=== PATIENT | female | born 1975 | race Caucasian/White ===

== ENCOUNTER 2016-10-06 18:50 | Emergency (ER) | payer OTHER ==
[~2016-10-06 18:50] MED LIST: B-1250TA3 PO; CHRO1000 PO; CINN500T PO; COMBAER6 INH; DHEA50CA4 PO; INSUH10VL SC; LAMI1TAB7 PO; LANTINJ4 SC; LISI-542 PO; LORA1TAB12 PO; Librium PO; MENSTAB PO; MOBI15TA PO; NEUR100C PO; NEUR600T PO; PRAV20TA2 PO; PRIL20CA9 PO; PROZ10CA7 PO; ZYRT10CA PO; [UNRECOGNIZED DRUG - CODE] PO
[2016-10-06] MEDS ORDERED: ACETAMINOPHEN 325 MG TAB As Ordered ONE (21:10)
[2016-10-06 21:26] LABS: BASO % 0.5 % (0.0-1.0); EOS # 0.1 K/mm3 (0.0-0.50); EOS % 1.2 % (0.0-3.0); LARGE UNSTAINED CELL # 0.1 K/mm3 (0.0-0.4); LARGE UNSTAINED CELL % 1.5 % (0.0-4.0); LYMPH # 2.6 K/mm3 (1.5-4.5); LYMPH % 29.1 % (24.0-44.0); MEAN CORPUSCULAR HGB CONC 31.8 g/dl (32.0-36.5); MEAN CORPUSCULAR VOLUME 78.6 fl (80.0-96.0); MONO # 0.4 K/mm3 (0.0-0.8); MONO % 4.2 % (0.0-5.0); NEUTROPHILS # 5.6 K/mm3 (1.8-7.7); NEUTROPHILS % 63.5 % (36.0-66.0); PLATELET COUNT, AUTOMATED 437 k/mm3 (150-450); WHITE BLOOD COUNT 8.8 K/mm3 (4.0-10.0)
[2016-10-06 21:47] LABS: ALBUMIN 3.9 GM/DL (3.2-5.2); ALBUMIN/GLOBULIN RATIO 0.98 (1.00-1.93); ALKALINE PHOSPHATASE 145 U/L (45-117); ALT/SGPT 21 U/L (12-78); AMYLASE 39 U/L (25-115); ANION GAP 7 MEQ/L (8-16); AST/SGOT 5 U/L (15-37); BILIRUBIN,DIRECT < 0.1 MG/DL (0.0-0.2); BILIRUBIN,TOTAL 0.2 MG/DL (0.2-1.0); BLOOD UREA NITROGEN 15 MG/DL (7-18); CALCIUM LEVEL 9.3 MG/DL (8.5-10.1); CARBON DIOXIDE LEVEL 26 MEQ/L (21-32); CHLORIDE LEVEL 104 MEQ/L (98-107); CREATININE FOR GFR 1.09 MG/DL (0.55-1.02); GLOMERULAR FILTRATION RATE 59.5 (>60); POTASSIUM SERUM 4.1 MEQ/L (3.5-5.1); SODIUM LEVEL 137 MEQ/L (136-145); TOTAL PROTEIN 7.9 GM/DL (6.4-8.2)
[2016-10-06 22:04] LABS: GLUCOSE, FASTING 422 MG/DL (70-105)
[2016-10-06] MEDS ORDERED: ISOVUE-370 76% 100ML VIAL (Q9967) As Ordered ONE (22:26)
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
== END 2016-10-06 23:48 | disposition home or self-care (01) ==
LOC: M ED 18:50
DX: S20.211A Contusion of right front wall of thorax, initial encounter (principal); S20.212A Contusion of left front wall of thorax, initial encounter; V43.52XA Car driver injured in collision with other type car in traffic accident, initial encounter; Y92.410 Unspecified street and highway as the place of occurrence of the external cause; Y93.89 Activity, other specified; Y99.8 Other external cause status; E10.65 Type 1 diabetes mellitus with hyperglycemia; I10 Essential (primary) hypertension; J45.909 Unspecified asthma, uncomplicated; F31.9 Bipolar disorder, unspecified; F84.5 Asperger's syndrome; M19.90 Unspecified osteoarthritis, unspecified site; Z79.899 Other long term (current) drug therapy; Z88.2 Allergy status to sulfonamides; Z88.6 Allergy status to analgesic agent; Z91.040 Latex allergy status; Z91.018 Allergy to other foods; F17.210 Nicotine dependence, cigarettes, uncomplicated
CPT/HCPCS: 36415; 70450; 71020; 72110; 72125; 74177; 80048; 80076; 82150; 83690; 85025; 99284; Q9967

== ENCOUNTER 2016-10-21 01:05 | Emergency (ER) | payer OTHER ==
[2016-10-21] MEDS ORDERED: diazePAM 5 MG TAB As Ordered ONE (01:32)
--- NOTE | 2016-10-21 01:56 | EDDOCDS ---
Physician Documentation [facility] Name: Geeta Tate Age: 41 yrs Sex: Female : 1975 Arrival Date: 10/21/2016 Time: 01:05 Bed I2 / M2 Private MD: Disposition: 10/21/16 01:34 Discharged to Home/Self Care. Impression: Muscle spasm of back - UPPER. - Condition is Stable. - Discharge Instructions: Muscle Cramps and Spasms. - Prescriptions for Valium 5 mg Oral Tablet - take 1 tablet by ORAL route every 8 hours As needed MDD: 3 tabs; 15 tablet. - Medication Reconciliation, Local Pharmacy Hours form. - Follow up: Emergency Department; When: As needed; Reason: Worsening of conditions. [facility]: [facility]; When: Call to arrange an appointment; Reason: Recheck today's complaints, Continuance of care, To establish care. - Problem is new. - Symptoms are unchanged. Historical: - Allergies: Aspirin (Rash); Erythromycin (Rash); Latex (Anaphylaxis); [place]; - Home Meds: 1. atorvastatin 20 mg oral tab 1 tab once daily 2. Cymbalta 90 mg Oral once daily 3. Lamictal 225 Oral 1 tab once daily 4. lisinopril 10 mg Oral tab 1 tab once daily 5. montelukast 10 mg oral tab 1 tab once daily 6. Novolog 100 unit/mL Sub-Q soln 20 unit three times a day 7. Topamax 100 mg Oral tab daily 8. Toujeo SoloStar 300 unit/mL (1.5 mL) subcutaneous inpn 65 unit - PMHx: Arthritis; asperbergs; Aspergers; Asthma; Bipolar disorder; Diabetes - IDDM: controlled; Hypertension; - PSHx: Appendectomy; Oophorectomy- Right; wisdom teeth extraction; - Social history: Smoking status: Patient states former smoker of tobacco. No barriers to communication noted, The patient speaks fluent [place], Speaks appropriately for age. - Family history: Not pertinent. - : The pt / caregiver states he / she is not on anticoagulants. Home medication list is obtained from [employer] import data. - Exposure Risk Screening:: None identified. TAX SPECIALIST: 10/21 01:15 LMP 08/01/2016 cz Vital Signs: 01:15 BP 142 / 72; Pulse 107; Resp 16; Temp 97.9; Pulse Ox 97% on R/A; Weight 93.44 kg / 206 cz lbs; Height 5 ft. 6 in. (167.64 cm); 01:15 Body Mass Index 33.25 (93.44 kg, 167.64 cm) cz MDM: 01:29 Diazepam 5 mg PO once; PLEASE GIVE TO PT TO TAKE HOME, THANK YOU. ordered. dt4 Administered Medications: 01:51 Drug: Diazepam 5 mg [diazepam 5 mg tablet (1 tabs)] Route: PO; ld5 01:51 Follow up: Response: Med's dispensed home ld5 Signatures: Pranay Morgan RN RN cz Humera Gomes RN RN ld5 Marilee Rodriguez PA-C PA-C dt4 MTDD
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
--- NOTE | 2016-10-23 02:56 | EDDOCDS ---
Physician Documentation [facility] Name: Geeta Tate Age: 41 yrs Sex: Female : 1975 Arrival Date: 10/21/2016 Time: 01:05 Bed I2 / M2 Private MD: Disposition: 10/21/16 01:34 Discharged to Home/Self Care. Impression: Muscle spasm of back - UPPER. - Condition is Stable. - Discharge Instructions: Muscle Cramps and Spasms. - Prescriptions for Valium 5 mg Oral Tablet - take 1 tablet by ORAL route every 8 hours As needed MDD: 3 tabs; 15 tablet. - Medication Reconciliation, Local Pharmacy Hours form. - Follow up: Emergency Department; When: As needed; Reason: Worsening of conditions. Follow up: [facility]; When: Call to arrange an appointment; Reason: Recheck today's complaints, Continuance of care, To establish care. - Problem is new. - Symptoms are unchanged. Historical: - Allergies: Aspirin (Rash); Erythromycin (Rash); Latex (Anaphylaxis); [place]; - Home Meds: 1. atorvastatin 20 mg oral tab 1 tab once daily 2. Cymbalta 90 mg Oral once daily 3. Lamictal 225 Oral 1 tab once daily 4. lisinopril 10 mg Oral tab 1 tab once daily 5. montelukast 10 mg oral tab 1 tab once daily 6. Novolog 100 unit/mL Sub-Q soln 20 unit three times a day 7. Topamax 100 mg Oral tab daily 8. Toujeo SoloStar 300 unit/mL (1.5 mL) subcutaneous inpn 65 unit - PMHx: Arthritis; asperbergs; Aspergers; Asthma; Bipolar disorder; Diabetes - IDDM: controlled; Hypertension; - PSHx: Appendectomy; Oophorectomy- Right; wisdom teeth extraction; - Social history: Smoking status: Patient states former smoker of tobacco. No barriers to communication noted, The patient speaks fluent Bulgarian, Speaks appropriately for age. - Family history: Not pertinent. - : The pt / caregiver states he / she is not on anticoagulants. Home medication list is obtained from [employer] import data. - Exposure Risk Screening:: None identified. 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 6 in. (167.64 cm); 01:15 Body Mass Index 33.25 (93.44 kg, 167.64 cm) cz MDM: 01:29 Diazepam 5 mg PO once; PLEASE GIVE TO PT TO TAKE HOME, THANK YOU. ordered. dt4 03:49 Financial registration complete. [facility] 15:58 T-Sheet-- Draft Copy was scanned into [employer] and attached to record. klr Administered Medications: 01:51 Drug: Diazepam 5 mg [diazepam 5 mg tablet (1 tabs)] Route: PO; ld5 01:51 Follow up: Response: Med's dispensed home ld5 Signatures: Pranay Morgan, RN RN cz Humera Goems RN RN ld5 Marilee Rodriguez, ROMARIO DOSS dt4 Sana Og [facility] Niki Ball The chart was reviewed and I authenticate all verbal orders and agree with the evaluation and treatment provided.Attachments: 15:58 T-Sheet-- Draft Copy klr Chart Complete MTDD
--- NOTE | 2016-10-23 02:56 | EDDOCDS ---
Physician Documentation [facility] Name: Geeta Tate Age: 41 yrs Sex: Female : 1975 Arrival Date: 10/21/2016 Time: 01:05 Bed I2 / M2 Private MD: Disposition: 10/21/16 01:34 Discharged to Home/Self Care. Impression: Muscle spasm of back - UPPER. - Condition is Stable. - Discharge Instructions: Muscle Cramps and Spasms. - Prescriptions for Valium 5 mg Oral Tablet - take 1 tablet by ORAL route every 8 hours As needed MDD: 3 tabs; 15 tablet. - Medication Reconciliation, Local Pharmacy Hours form. - Follow up: Emergency Department; When: As needed; Reason: Worsening of conditions. Follow up: [facility]; When: Call to arrange an appointment; Reason: Recheck today's complaints, Continuance of care, To establish care. - Problem is new. - Symptoms are unchanged. Historical: - Allergies: Aspirin (Rash); Erythromycin (Rash); Latex (Anaphylaxis); [place]; - Home Meds: 1. atorvastatin 20 mg oral tab 1 tab once daily 2. Cymbalta 90 mg Oral once daily 3. Lamictal 225 Oral 1 tab once daily 4. lisinopril 10 mg Oral tab 1 tab once daily 5. montelukast 10 mg oral tab 1 tab once daily 6. Novolog 100 unit/mL Sub-Q soln 20 unit three times a day 7. Topamax 100 mg Oral tab daily 8. Toujeo SoloStar 300 unit/mL (1.5 mL) subcutaneous inpn 65 unit - PMHx: Arthritis; asperbergs; Aspergers; Asthma; Bipolar disorder; Diabetes - IDDM: controlled; Hypertension; - PSHx: Appendectomy; Oophorectomy- Right; wisdom teeth extraction; - Social history: Smoking status: Patient states former smoker of tobacco. No barriers to communication noted, The patient speaks fluent [place]ian, Speaks appropriately for age. - Family history: Not pertinent. - : The pt / caregiver states he / she is not on anticoagulants. Home medication list is obtained from [employer] import data. - Exposure Risk Screening:: None identified. 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 6 in. (167.64 cm); 01:15 Body Mass Index 33.25 (93.44 kg, 167.64 cm) cz MDM: 01:29 Diazepam 5 mg PO once; PLEASE GIVE TO PT TO TAKE HOME, THANK YOU. ordered. dt4 03:49 Financial registration complete. [facility] 15:58 T-Sheet-- Draft Copy was scanned into [employer] and attached to record. klr Administered Medications: 01:51 Drug: Diazepam 5 mg [diazepam 5 mg tablet (1 tabs)] Route: PO; ld5 01:51 Follow up: Response: Med's dispensed home ld5 Signatures: Pranay Morgan, RN RN cz Humera Gomes RN RN ld5 Marilee Rodriguez, ROMARIO DOSS dt4 Sana Og [facility] Niki Ball The chart was reviewed and I authenticate all verbal orders and agree with the evaluation and treatment provided.Attachments: 15:58 T-Sheet-- Draft Copy klr Chart Complete MTDD
== END 2016-10-21 01:55 | disposition home or self-care (01) ==
LOC: M ED 01:05
DX: M62.838 Other muscle spasm (principal); V43.52XD Car driver injured in collision with other type car in traffic accident, subsequent encounter; Y92.410 Unspecified street and highway as the place of occurrence of the external cause; Y93.89 Activity, other specified; Y99.8 Other external cause status; M19.90 Unspecified osteoarthritis, unspecified site; J45.909 Unspecified asthma, uncomplicated; F31.9 Bipolar disorder, unspecified; E11.9 Type 2 diabetes mellitus without complications; I10 Essential (primary) hypertension; F84.5 Asperger's syndrome; Z90.79 Acquired absence of other genital organ(s); Z90.89 Acquired absence of other organs; Z87.891 Personal history of nicotine dependence; Z79.4 Long term (current) use of insulin; Z79.899 Other long term (current) drug therapy; Z88.1 Allergy status to other antibiotic agents; Z88.6 Allergy status to analgesic agent; Z91.040 Latex allergy status; Z91.018 Allergy to other foods

== ENCOUNTER → 2016-11-14 | Outpatient (REF) | payer OTHER ==
[2016-11-14 18:25] LABS: BASO % 0.5 % (0.0-1.0); EOS # 0.1 K/mm3 (0.0-0.50); EOS % 1.5 % (0.0-3.0); LARGE UNSTAINED CELL # 0.1 K/mm3 (0.0-0.4); LARGE UNSTAINED CELL % 0.7 % (0.0-4.0); LYMPH # 2.3 K/mm3 (1.5-4.5); MEAN CORPUSCULAR HEMOGLOBIN 25.8 pg (27.0-33.0); MEAN CORPUSCULAR VOLUME 80.7 fl (80.0-96.0); MONO # 0.4 K/mm3 (0.0-0.8); MONO % 4.6 % (0.0-5.0); NEUTROPHILS # 5.1 K/mm3 (1.8-7.7); NEUTROPHILS % 64.8 % (36.0-66.0); PLATELET COUNT, AUTOMATED 382 k/mm3 (150-450); RED CELL DISTRIBUTION WIDTH 13.4 % (11.5-14.5); WHITE BLOOD COUNT 7.9 K/mm3 (4.0-10.0)
[2016-11-14 19:09] LABS: ERYTHROCYTE SEDIMENTATION RATE 27 mm/hr (0-20)
[2016-11-14 19:29] LABS: ALBUMIN 3.7 GM/DL (3.2-5.2); ALKALINE PHOSPHATASE 95 U/L (45-117); ALT/SGPT 19 U/L (12-78); ANION GAP 10 MEQ/L (8-16); AST/SGOT 9 U/L (15-37); BILIRUBIN,TOTAL 0.5 MG/DL (0.2-1.0); BLOOD UREA NITROGEN 13 MG/DL (7-18); CALCIUM LEVEL 8.7 MG/DL (8.5-10.1); CARBON DIOXIDE LEVEL 25 MEQ/L (21-32); CHLORIDE LEVEL 102 MEQ/L (98-107); CREATININE FOR GFR 0.91 MG/DL (0.55-1.02); GLOMERULAR FILTRATION RATE > 60.0 (>60); GLUCOSE, FASTING 322 MG/DL (70-105); POTASSIUM SERUM 4.1 MEQ/L (3.5-5.1); SODIUM LEVEL 137 MEQ/L (136-145); TOTAL PROTEIN 7.4 GM/DL (6.4-8.2)
== END ==
LOC: M LABNEURO 16:33
PROVIDERS: ATTEND Psychiatry & Neurology Neurology
DX: R51 Headache (principal)

== ENCOUNTER 2017-01-15 21:02 | Emergency (ER) | payer OTHER ==
[~2017-01-15] VITALS: Ht 167.6 cm; Wt 93.4 kg
[~2017-01-15 21:02] MED LIST changes: -ATOR1TAB21; -DULO1CAP3; -INSUR SC; -MONT10TA2; -TOPI1TAB31; -TOUJ1.2I
[2017-01-15] MEDS ORDERED: TOPI1TAB31 (21:12)
[2017-01-15] MEDS ORDERED: TOUJ1.2I (21:12)
[2017-01-15] MEDS ORDERED: MONT10TA2 (21:12)
[2017-01-15] MEDS ORDERED: ATOR1TAB21 (21:12)
[2017-01-15] MEDS ORDERED: DULO1CAP3 (21:12)
[2017-01-15] MEDS ORDERED: INSUR SC (21:12)
[2017-01-15] MEDS ORDERED: HumuLIN R (REGULAR) INSULIN (NovoLIN R) **100U/ML** PER UNIT IV ONE (21:45)
[2017-01-15] MEDS ORDERED: NS 1,000 ML IV ONE (21:45)
[2017-01-15 22:08] LABS: VENOUS BASE EXCESS -3.5 (-2.0-2.0); VENOUS O2 SATURATION 85.4 % (60.0-80.0); VENOUS PARTIAL PRESSURE CO2 41.7 mmHg (38.0-50.0); VENOUS PARTIAL PRESSURE O2 51.4 mmHg (30.0-50.0); VENOUS STANDARD HCO3 21.4 MEQ/L; VENOUS TOTAL CO2 23.4 MEQ/L (24.0-28.0)
[2017-01-15 22:09] LABS: BASO % 0.6 % (0.0-1.0); EOS # 0.1 K/mm3 (0.0-0.50); EOS % 1.4 % (0.0-3.0); LARGE UNSTAINED CELL # 0.1 K/mm3 (0.0-0.4); LARGE UNSTAINED CELL % 1.5 % (0.0-4.0); LYMPH # 2.8 K/mm3 (1.5-4.5); MEAN CORPUSCULAR HEMOGLOBIN 26.3 pg (27.0-33.0); MEAN CORPUSCULAR HGB CONC 32.6 g/dl (32.0-36.5); MEAN CORPUSCULAR VOLUME 80.7 fl (80.0-96.0); MONO # 0.4 K/mm3 (0.0-0.8); MONO % 5.3 % (0.0-5.0); NEUTROPHILS # 3.7 K/mm3 (1.8-7.7); NEUTROPHILS % 52.1 % (36.0-66.0); PLATELET COUNT, AUTOMATED 324 k/mm3 (150-450); WHITE BLOOD COUNT 7.2 K/mm3 (4.0-10.0)
[2017-01-15 22:40] LABS: ALBUMIN 3.4 GM/DL (3.2-5.2); ALBUMIN/GLOBULIN RATIO 0.92 (1.00-1.93); ALKALINE PHOSPHATASE 106 U/L (45-117); ALT/SGPT 20 U/L (12-78); ANION GAP 9 MEQ/L (8-16); AST/SGOT 7 U/L (15-37); BILIRUBIN,DIRECT < 0.1 MG/DL (0.0-0.2); BILIRUBIN,TOTAL 0.2 MG/DL (0.2-1.0); BLOOD UREA NITROGEN 15 MG/DL (7-18); CALCIUM LEVEL 8.3 MG/DL (8.5-10.1); CARBON DIOXIDE LEVEL 23 MEQ/L (21-32); CHLORIDE LEVEL 101 MEQ/L (98-107); CREATININE FOR GFR 1.12 MG/DL (0.55-1.02); GLOMERULAR FILTRATION RATE 57.7 (>60); SODIUM LEVEL 133 MEQ/L (136-145); TOTAL PROTEIN 7.1 GM/DL (6.4-8.2)
[2017-01-15 22:41] LABS: GLUCOSE, FASTING 490 MG/DL (70-105)
[2017-01-16 00:10] VITALS: BP 91/53
== END 2017-01-16 00:12 | disposition home or self-care (01) ==
LOC: M ED 22:59
DX: E11.65 Type 2 diabetes mellitus with hyperglycemia (principal); I10 Essential (primary) hypertension; J45.909 Unspecified asthma, uncomplicated; Z79.899 Other long term (current) drug therapy; Z79.4 Long term (current) use of insulin; Z88.8 Allergy status to other drugs, medicaments and biological substances; Z88.1 Allergy status to other antibiotic agents; Z91.018 Allergy to other foods; Z91.040 Latex allergy status
CPT/HCPCS: 80048; 80076; 81001; 82803; 83036; 83690; 85025; 96374; 99283; G0480

== ENCOUNTER → 2017-01-15 | Outpatient (CLI) | payer OTHER ==
[~2017-01-15] MED LIST changes: +ATOR1TAB21; +DULO1CAP3; +INSUR SC; +MONT10TA2; +TOPI1TAB31; +TOUJ1.2I
[2017-01-15 18:12] LABS: ALBUMIN 3.6 GM/DL (3.2-5.2); ALBUMIN/GLOBULIN RATIO 1.03 (1.00-1.93); ALKALINE PHOSPHATASE 112 U/L (45-117); ALT/SGPT 24 U/L (12-78); ANION GAP 8 MEQ/L (8-16); AST/SGOT 8 U/L (15-37); BILIRUBIN,DIRECT < 0.1 MG/DL (0.0-0.2); BILIRUBIN,TOTAL 0.4 MG/DL (0.2-1.0); BLOOD UREA NITROGEN 18 MG/DL (7-18); CARBON DIOXIDE LEVEL 22 MEQ/L (21-32); CHLORIDE LEVEL 104 MEQ/L (98-107); CHOLESTEROL LEVEL 159 MG/DL (<200); CREATININE FOR GFR 1.17 MG/DL (0.55-1.02); GLOMERULAR FILTRATION RATE 54.8 (>60); POTASSIUM SERUM 4.4 MEQ/L (3.5-5.1); SODIUM LEVEL 134 MEQ/L (136-145); TOTAL PROTEIN 7.1 GM/DL (6.4-8.2); TRIGLYCERIDES LEVEL 449 MG/DL (<150)
[2017-01-15 18:43] LABS: GLUCOSE, FASTING 539 MG/DL (70-105)
[2017-01-15 19:30] LABS: MEAN CORPUSCULAR HEMOGLOBIN 26.2 pg (27.0-33.0); MEAN CORPUSCULAR HGB CONC 32.6 g/dl (32.0-36.5); MEAN CORPUSCULAR VOLUME 80.2 fl (80.0-96.0); RED CELL DISTRIBUTION WIDTH 13.1 % (11.5-14.5); WHITE BLOOD COUNT 6.6 K/mm3 (4.0-10.0)
== END ==
LOC: M LAB 16:42
PROVIDERS: ATTEND Nurse Practitioner Family
DX: E34.9 Endocrine disorder, unspecified (principal); E64.0 Sequelae of protein-calorie malnutrition

== ENCOUNTER 2017-06-24 17:14 | Emergency (ER) | payer OTHER ==
[~2017-06-24] VITALS: Ht 167.6 cm; Wt 96.4 kg
[~2017-06-24 17:14] MED LIST changes: +ATOR1TAB21; +DULO1CAP3; +INSUR SC; +MONT10TA2; +TOPI100T9; +TOUJ1.2I
[2017-06-24] MEDS ORDERED: INSUHUMDS SC (17:42)
[2017-06-24] MEDS ORDERED: INSULANT SC (17:42)
[2017-06-24] MEDS ORDERED: ATOR1TAB21 PO (17:42)
[2017-06-24] MEDS ORDERED: ABIL10TA9 PO (17:42)
[2017-06-24] MEDS ORDERED: METOCLOPRAMIDE INJ 10MG/2ML VIAL (J2765) IV ONE (19:45)
[2017-06-24] MEDS ORDERED: NS 1,000 ML IV ONE (19:45)
[2017-06-24] MEDS ORDERED: diphenhydrAMINE INJ 50MG/ML VIAL (J1200) IV ONE (19:45)
--- NOTE | 2017-06-24 20:10 | REPUSA ---
CT of the head Clinical history: Headache. Comparison: 10/06/2016. Technique: Multiple axial CT images were obtained through the head without administration of contrast . Findings: The ventricles and sulci are symmetric bilaterally. There is no evidence of acute hemorrhag e or infarct. There is no midline shift, mass effect, or extra-axial fluid collection. The osseous st ructures are unremarkable. The visualized paranasal sinuses and mastoid air cells are clear. Impression: Negative study.
[2017-06-24 21:41] VITALS: BP 116/74
--- NOTE | 2017-06-25 01:42 | REP ---
Clinical: Chest pain . Comparison: 10/06/2016 . Technique: PA and lateral. Findings: The mediastinum and cardiac silhouette are normal. The lung hwang are clear and without acute consolidation, effusion, or pneumothorax. The skeletal structures are intact and normal. Impression: 1. No acute cardiopulmonary process. Signed by Jamey Whaley MD 06/25/2017 01:34 A
--- NOTE | 2017-06-25 09:07 | ECGEPIP ---
Stationary ECG Study 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 Order Number: [id number] Reading MD: Juan Beth Measurements Intervals [place] Rate: 86 P: 66 SC: 179 QRS: 50 QRSD: 95 T: 45 QT: 363 QTc: 437 Interpretive Statements SINUS RHYTHM POSSIBLE LEFT ATRIAL ENLARGEMENT BENIGN EARLY REPOLARIZATION POSSIBLE PRIOR INFERIOR INFARCT SIMILAR TO 02/05/15 Electronically Signed On 06-25-2017 9:06:56 EDT by Juan Beth
== END 2017-06-24 22:47 | disposition left against medical advice (07) ==
LOC: M ED 17:14
DX: R51 Headache (principal); E11.9 Type 2 diabetes mellitus without complications; Z79.4 Long term (current) use of insulin; Z79.899 Other long term (current) drug therapy; Z88.8 Allergy status to other drugs, medicaments and biological substances; Z88.1 Allergy status to other antibiotic agents; Z91.040 Latex allergy status; Z91.018 Allergy to other foods

== ENCOUNTER → 2017-09-20 | Outpatient (REF) | payer OTHER ==
[2017-09-20 18:41] LABS: HEMATOCRIT 39.4 % (36.0-47.0); HEMOGLOBIN 12.8 g/dl (12.0-16.0); MEAN CORPUSCULAR HEMOGLOBIN 24.6 pg (27.0-33.0); MEAN CORPUSCULAR HGB CONC 32.5 g/dl (32.0-36.5); MEAN CORPUSCULAR VOLUME 75.6 fl (80.0-96.0); PLATELET COUNT, AUTOMATED 359 10^3/uL (150-450); RED BLOOD COUNT 5.21 10^6/uL (4.00-5.40); RED CELL DISTRIBUTION WIDTH 13.2 % (11.5-14.5); WHITE BLOOD COUNT 6.9 10^3/uL (4.0-10.0)
[2017-09-20 19:00] LABS: FREE T4 1.26 NG/DL (0.76-1.46)
[2017-09-20 20:51] LABS: FOLLICLE STIMULATING HORMONE 4.7 mIU/mL; LUTEINIZING HORMONE 8.1 mIU/mL
== END ==
LOC: M LAB REF 16:54
DX: N92.1 Excessive and frequent menstruation with irregular cycle (principal)

== ENCOUNTER → 2017-10-16 | Outpatient (REF) | payer OTHER ==
[2017-10-16 11:40] LABS: ERYTHROCYTE SEDIMENTATION RATE 18 mm/hr (0-20)
[2017-10-16 11:44] LABS: ALBUMIN 3.4 GM/DL (3.2-5.2); ALKALINE PHOSPHATASE 92 U/L (45-117); ALT/SGPT 26 U/L (12-78); ANION GAP 10 MEQ/L (8-16); AST/SGOT 14 U/L (7-37); BILIRUBIN,TOTAL 0.4 MG/DL (0.2-1.0); BLOOD UREA NITROGEN 10 MG/DL (7-18); C REACTIVE PROTEIN QUANTITATIV 0.53 MG/DL (0.00-0.30); CALCIUM LEVEL 8.5 MG/DL (8.5-10.1); CARBON DIOXIDE LEVEL 24 MEQ/L (21-32); CHLORIDE LEVEL 106 MEQ/L (98-107); CHOLESTEROL LEVEL 169 MG/DL (<200); CHOLESTEROL RISK RATIO 4.121 (<5); ESTIMATED AVERAGE GLUCOSE 349 MG/DL (60-110); GLOMERULAR FILTRATION RATE > 60.0 (>58); GLUCOSE, FASTING 215 MG/DL (70-100); HDL CHOLESTEROL 41 MG/DL (>40); HEMOGLOBIN A1c 13.8 %; NON-HDL-C 128 MG/DL; POTASSIUM SERUM 4.1 MEQ/L (3.5-5.1); SODIUM LEVEL 140 MEQ/L (136-145); TOTAL PROTEIN 6.8 GM/DL (6.4-8.2); TRIGLYCERIDES LEVEL 115 MG/DL (<150)
== END ==
LOC: M LAB REF 10:42
DX: E11.9 Type 2 diabetes mellitus without complications (principal)

== ENCOUNTER → 2017-12-17 | Outpatient (REF) | payer OTHER ==
[2017-12-17 18:47] LABS: BASO # 0.1 10^3/uL (0.0-0.2); BASO % 1.1 % (0.0-1.0); EOS # 0.2 10^3/uL (0.0-0.50); EOS % 2.1 % (0.0-3.0); HEMOGLOBIN 12.2 g/dl (12.0-15.5); IMMATURE GRANULOCYTE % 0.4 % (0-3.0); LYMPH # 2.3 10^3/uL (1.5-4.5); LYMPH % 30.5 % (24.0-44.0); MEAN CORPUSCULAR HEMOGLOBIN 25.4 pg (27.0-33.0); MEAN CORPUSCULAR VOLUME 77.1 fl (80.0-96.0); MONO # 0.5 10^3/uL (0.0-0.8); MONO % 6.3 % (0.0-5.0); NEUTROPHILS # 4.5 10^3/uL (1.8-7.7); NEUTROPHILS % 59.6 % (36.0-66.0); PLATELET COUNT, AUTOMATED 357 10^3/uL (150-450); RED CELL DISTRIBUTION WIDTH 12.8 % (11.5-14.5); WHITE BLOOD COUNT 7.5 10^3/uL (4.0-10.0)
[2017-12-17 19:27] LABS: C REACTIVE PROTEIN QUANTITATIV 1.14 MG/DL (0.00-0.30)
[2017-12-17 19:27] LABS: RHEUMATOID FACTOR QUANT < 10.0 IU/ML (<15.0)
[2017-12-17 20:13] LABS: ERYTHROCYTE SEDIMENTATION RATE 22 mm/hr (0-20)
[2017-12-20 00:07] LABS: ANTINUCLEAR ANTIBODIES DIRECT Negative (Negative); Lyme Disease IgG/IgM Antibodie <0.91 ISR (0.00-0.90); Lyme Disease IgM Ab Quantitati <0.80 index (0.00-0.79)
== END ==
LOC: M LAB REF 16:28
DX: M06.4 Inflammatory polyarthropathy (principal)

== ENCOUNTER 2018-03-17 21:56 | Emergency (ER) | payer OTHER ==
[2018-03-18] MEDS: PERCOCET 5MG/325MG TAB PO (01:05)
== END 2018-03-18 01:10 | disposition home or self-care (01) ==
LOC: M ED 21:56
DX: M75.31 Calcific tendinitis of right shoulder (principal); E11.9 Type 2 diabetes mellitus without complications; E78.5 Hyperlipidemia, unspecified; R51 Headache; K21.9 Gastro-esophageal reflux disease without esophagitis; M54.9 Dorsalgia, unspecified; F41.9 Anxiety disorder, unspecified; K80.20 Calculus of gallbladder without cholecystitis without obstruction; E28.2 Polycystic ovarian syndrome; Z79.899 Other long term (current) drug therapy; Z88.6 Allergy status to analgesic agent; Z88.0 Allergy status to penicillin; Z91.040 Latex allergy status; Z91.018 Allergy to other foods
CPT/HCPCS: 73030

== ENCOUNTER 2018-11-11 20:04 | Emergency (ER) | payer OTHER ==
[~2018-11-11] VITALS: Ht 167.6 cm; Wt 84.9 kg
[~2018-11-11 20:04] MED LIST changes: +ABIL10TA9 PO; +ATOR1TAB21 PO; +INSUHUMDS SC; +INSULANT SC; +INVO300T PO; +NAPR-50 PO; +PERC5TAB12 PO
[2018-11-11 20:05] VITALS: BP 134/84
[2018-11-11] MEDS ORDERED: ALBUTEROL SULFATE 2.5 MG/0.5 ML INH NEB SOLN NEB ONE (21:15)
[2018-11-11] MEDS ORDERED: BENZONATATE 100 MG CAP PO ONE (21:15)
[2018-11-11 21:18] LABS: INFLUENZA A AMPLIFICATION POSITIVE (NEGATIVE); INFLUENZA B AMPLIFICATION NEGATIVE (NEGATIVE)
[2018-11-11 21:47] LABS: BASO % 0.8 % (0.0-1.0); EOS # 0.1 10^3/uL (0.0-0.50); EOS % 1.3 % (0.0-3.0); HEMATOCRIT 38.9 % (36.0-47.0); HEMOGLOBIN 12.5 g/dl (12.0-15.5); LYMPH # 1.9 10^3/uL (1.5-4.5); LYMPH % 48.3 % (24.0-44.0); MEAN CORPUSCULAR HGB CONC 32.1 g/dl (32.0-36.5); MEAN CORPUSCULAR VOLUME 77.8 fl (80.0-96.0); MONO # 0.5 10^3/uL (0.0-0.8); MONO % 12.5 % (0.0-5.0); NEUTROPHILS # 1.4 10^3/uL (1.8-7.7); NEUTROPHILS % 36.6 % (36.0-66.0); PLATELET COUNT, AUTOMATED 255 10^3/uL (150-450); WHITE BLOOD COUNT 3.9 10^3/uL (4.0-10.0)
[2018-11-11 22:14] LABS: ALBUMIN 3.2 GM/DL (3.2-5.2); ALT/SGPT 34 U/L (12-78); BILIRUBIN,TOTAL 0.4 MG/DL (0.2-1.0); BLOOD UREA NITROGEN 11 MG/DL (7-18); CALCIUM LEVEL 8.3 MG/DL (8.5-10.1); CARBON DIOXIDE LEVEL 25 MEQ/L (21-32); CHLORIDE LEVEL 100 MEQ/L (98-107); CREATININE FOR GFR 0.73 MG/DL (0.55-1.30); GLOMERULAR FILTRATION RATE > 60.0 (>58); GLUCOSE, FASTING 283 MG/DL (70-100); LIPASE 163 U/L (73-393); SODIUM LEVEL 132 MEQ/L (136-145); TOTAL PROTEIN 7.1 GM/DL (6.4-8.2)
[2018-11-11] MEDS ORDERED: PROAAER10 INH (23:06)
[2018-11-11] MEDS ORDERED: ALBUTEROL 90 MCG/ACT 8GM HFA INHALER INH ONE (23:15)
[2018-11-11] MEDS ORDERED: ONDA4TAB6 PO (23:23)
--- NOTE | 2018-11-12 05:38 | REP ---
Clinical: Cough and dyspnea . Comparison: 06/24/2017 Technique: PA and lateral. Findings: The mediastinum and cardiac silhouette are normal. The lung hwang are clear and without acute consolidation, effusion, or pneumothorax. The skeletal structures are intact and normal. Impression: 1. No acute cardiopulmonary process. Electronically Signed by Jamey Whaley MD 11/12/2018 05:30 A
== END 2018-11-11 23:26 | disposition home or self-care (01) ==
LOC: M ED 20:04
DX: J09.X2 Influenza due to identified novel influenza A virus with other respiratory manifestations (principal); I10 Essential (primary) hypertension; E78.5 Hyperlipidemia, unspecified; J45.909 Unspecified asthma, uncomplicated; K21.9 Gastro-esophageal reflux disease without esophagitis; E11.9 Type 2 diabetes mellitus without complications; K90.0 Celiac disease; E28.2 Polycystic ovarian syndrome; Z87.891 Personal history of nicotine dependence; Z88.6 Allergy status to analgesic agent; Z88.1 Allergy status to other antibiotic agents; Z91.018 Allergy to other foods; Z91.040 Latex allergy status

== ENCOUNTER → 2019-03-06 | Outpatient (REF) | payer OTHER, MEDICAID ==
[~2019-03-06] MED LIST changes: -NAPR-50 PO; +NAPR-837 PO; +ONDA4TAB6 PO; +PROAAER10 INH
[2019-03-06 19:38] LABS: ALBUMIN 3.4 GM/DL (3.2-5.2); ALT/SGPT 30 U/L (12-78); BILIRUBIN,TOTAL 0.7 MG/DL (0.2-1.0); BLOOD UREA NITROGEN 16 MG/DL (7-18); CALCIUM LEVEL 8.9 MG/DL (8.5-10.1); CARBON DIOXIDE LEVEL 25 MEQ/L (21-32); CHLORIDE LEVEL 104 MEQ/L (98-107); CHOLESTEROL LEVEL 165 MG/DL (<200); CHOLESTEROL RISK RATIO 3.367 (<5); CREATININE FOR GFR 0.74 MG/DL (0.55-1.30); GLOMERULAR FILTRATION RATE > 60.0 (>58); GLUCOSE, FASTING 295 MG/DL (70-100); HDL CHOLESTEROL 49 MG/DL (>40); LDL CHOLESTEROL 90 MG/DL (<100); NON-HDL-C 116 MG/DL; POTASSIUM SERUM 4.2 MEQ/L (3.5-5.1); SODIUM LEVEL 135 MEQ/L (136-145); THYROID STIMULATING HORMONE 0.932 uIU/ML (0.358-3.740); TOTAL PROTEIN 7.1 GM/DL (6.4-8.2); TRIGLYCERIDES LEVEL 129 MG/DL (<150)
[2019-03-06 19:48] LABS: CREATININE, URINE 53.5 MG/DL; MALB URINE SIEMENS 50.9 MG/L; MAU/CREAT RATIO 95.1 MCG/MG (0.0-30.0)
[2019-03-06 19:59] LABS: HEMOGLOBIN A1c 14.1 %
== END ==
LOC: M LAB REF 18:40
PROVIDERS: ATTEND Family Medicine Addiction Medicine
DX: E11.9 Type 2 diabetes mellitus without complications (principal)

== ENCOUNTER → 2019-04-15 | Outpatient (REF) | payer OTHER, MEDICAID ==
[~2019-04-15] MED LIST changes: -DULO1CAP3; +DULO1CAP6
[2019-04-15 18:10] LABS: ALBUMIN 3.6 GM/DL (3.2-5.2); ALT/SGPT 26 U/L (12-78); BILIRUBIN,TOTAL 0.5 MG/DL (0.2-1.0); BLOOD UREA NITROGEN 17 MG/DL (7-18); CALCIUM LEVEL 9.1 MG/DL (8.5-10.1); CARBON DIOXIDE LEVEL 26 MEQ/L (21-32); CHLORIDE LEVEL 99 MEQ/L (98-107); CHOLESTEROL LEVEL 169 MG/DL (<200); CHOLESTEROL RISK RATIO 3.188 (<5); CREATININE FOR GFR 0.91 MG/DL (0.55-1.30); GLOMERULAR FILTRATION RATE > 60.0 (>58); GLUCOSE, FASTING 323 MG/DL (70-100); HDL CHOLESTEROL 53 MG/DL (>40); LDL CHOLESTEROL 97 MG/DL (<100); NON-HDL-C 116 MG/DL; POTASSIUM SERUM 4.4 MEQ/L (3.5-5.1); SODIUM LEVEL 134 MEQ/L (136-145); TOTAL PROTEIN 7.2 GM/DL (6.4-8.2); TRIGLYCERIDES LEVEL 97 MG/DL (<150)
[2019-04-15 18:33] LABS: HEMOGLOBIN A1c 13.4 %
== END ==
LOC: M LAB REF 16:44
PROVIDERS: ATTEND Nurse Practitioner Family
DX: E11.9 Type 2 diabetes mellitus without complications (principal)

== ENCOUNTER 2019-05-04 00:24 | Emergency (ER) | payer OTHER ==
[2019-05-04] MEDS ORDERED: [UNRECOGNIZED DRUG - OTHER] PO (01:58)
[2019-05-04] MEDS ORDERED: SULF500T2 PO (01:58)
[2019-05-04] MEDS ORDERED: PLAQ200T4 PO (01:58)
[2019-05-04 04:44] VITALS: BP 139/75
== END 2019-05-04 04:40 | disposition home or self-care (01) ==
LOC: M ED 00:24
DX: F43.20 Adjustment disorder, unspecified (principal); F33.9 Major depressive disorder, recurrent, unspecified; Z91.5 Personal history of self-harm; Z79.899 Other long term (current) drug therapy; Z91.018 Allergy to other foods; Z91.040 Latex allergy status; Z88.8 Allergy status to other drugs, medicaments and biological substances

== ENCOUNTER → 2019-05-29 | Outpatient (REF) | payer OTHER ==
[~2019-05-29] MED LIST changes: +PLAQ200T4 PO; +SULF500T2 PO; +[UNRECOGNIZED DRUG - OTHER] PO
[2019-05-30 14:42] LABS: C-PEPTIDE 2.1 ng/mL (1.1-4.4)
== END ==
LOC: M LABDRAW1 11:37
PROVIDERS: ATTEND Nurse Practitioner Family
DX: E11.65 Type 2 diabetes mellitus with hyperglycemia (principal)

== ENCOUNTER 2019-07-26 19:11 | Inpatient (IN) | payer OTHER ==
[~2019-07-26] VITALS: Ht 167.6 cm; Wt 88.8 kg
[2019-07-26] MEDS: DULoxetine 30 MG CAP (CYMBALTA) PO SCH (01:00)
[~2019-07-26 19:11] MED LIST changes: -DULO1CAP6; +DULO1CAP6 PO; -MONT10TA2; +MONT10TA2 PO
[2019-07-26] MEDS ORDERED: INSULIN HUMAN REGULAR 100 UNITS in NS 99 ML IV SCH (19:18)
[2019-07-26] MEDS ORDERED: NS 250 ML IV ONE (19:30)
[2019-07-26] MEDS ORDERED: ACETAMINOPHEN TAB 650MG DOSE (2X325MG) PO PRN (19:30)
[2019-07-26 19:45] VITALS: BP 166/87
[2019-07-26] MEDS ORDERED: ONDANSETRON 4MG/2ML VIAL (J2405) As Ordered ONE (19:47)
[2019-07-26] MEDS: ONDANSETRON 4MG/2ML VIAL (J2405) IV PRN ×2 (20:00→23:59)
[2019-07-26 20:37] LABS: HEMATOCRIT 43.8 % (36.0-47.0); HEMOGLOBIN 13.5 g/dl (12.0-15.5); MEAN CORPUSCULAR HEMOGLOBIN 25.2 pg (27.0-33.0); MEAN CORPUSCULAR HGB CONC 30.8 g/dl (32.0-36.5); MEAN CORPUSCULAR VOLUME 81.9 fl (80.0-96.0); PLATELET COUNT, AUTOMATED 372 10^3/uL (150-450); RED BLOOD COUNT 5.35 10^6/uL (4.00-5.40); WHITE BLOOD COUNT 11.3 10^3/uL (4.0-10.0)
[2019-07-26 20:45] LABS: INR 1.09; PROTHROMBIN TIME 13.8 SECONDS (11.8-14.0)
[2019-07-26 20:46] VITALS: BP 167/83
[2019-07-26 21:03] LABS: HEMOGLOBIN A1c 10.6 %
[2019-07-26 21:04] LABS: KETONE, URINE AUTO 2+ mg/dL (NEGATIVE)
[2019-07-26 21:11] LABS: ALBUMIN 3.6 GM/DL (3.2-5.2); ALT/SGPT 20 U/L (12-78); BILIRUBIN,TOTAL 1.3 MG/DL (0.2-1.0); BLOOD UREA NITROGEN 30 MG/DL (7-18); CALCIUM LEVEL 8.5 MG/DL (8.5-10.1); CARBON DIOXIDE LEVEL 15 MEQ/L (21-32); CHLORIDE LEVEL 96 MEQ/L (98-107); CREATININE FOR GFR 1.31 MG/DL (0.55-1.30); GLOMERULAR FILTRATION RATE 47.4 (>58); GLUCOSE, FASTING 348 MG/DL (70-100); MAGNESIUM LEVEL 2.1 MG/DL (1.8-2.4); POTASSIUM SERUM 3.7 MEQ/L (3.5-5.1); SODIUM LEVEL 137 MEQ/L (136-145); TOTAL PROTEIN 7.7 GM/DL (6.4-8.2); TROPONIN I < 0.02 NG/ML (< 0.10)
[2019-07-26 21:14] LABS: ACETONE/KETONE > 46.00 MG/DL (<2.81)
[2019-07-26] MEDS ORDERED: TRAM50TA2 PO (21:15)
[2019-07-26] MEDS ORDERED: INVO300T PO (21:15)
[2019-07-26] MEDS ORDERED: GLUCOSE 4 GM CHEW TABLET PO PRN (21:15)
[2019-07-26] MEDS ORDERED: OMEP-221 PO (21:15)
[2019-07-26] MEDS ORDERED: PROCHLORPERAZINE 10 MG/2 ML VIAL (J0780) IM PRN (21:15)
[2019-07-26] MEDS ORDERED: KETOROLAC TROMETHAMINE 10 MG TAB PO PRN (21:15)
[2019-07-26] MEDS ORDERED: GLUCAGON FOR INJ 1 MG VIAL (J1610) SC PRN (21:15)
[2019-07-26] MEDS ORDERED: DEXTROSE 50% 50 ML SYRINGE IV PRN (21:15)
[2019-07-26] MEDS ORDERED: ACETAMINOPHEN *IV* 1,000 MG in IV 1 EA IV ONE (21:15)
[2019-07-26] MEDS ORDERED: LEFL1TAB4 PO (21:16)
[2019-07-26] MEDS ORDERED: LEVOTAB10 PO (21:17)
[2019-07-26 21:19] LABS: VENOUS BASE EXCESS -12.8 (-2.0-2.0); VENOUS HCO3 11.8 MEQ/L (23.0-27.0); VENOUS O2 SATURATION 95.2 % (60.0-80.0); VENOUS PARTIAL PRESSURE CO2 24.9 mmHg (38.0-50.0); VENOUS PH 7.293 UNITS (7.330-7.430); VENOUS STANDARD HCO3 14.6 MEQ/L; VENOUS TOTAL CO2 12.5 MEQ/L (24.0-28.0)
[2019-07-26 21:27] LABS: OSMOLALITY SERUM 319 MOSM/KG (275-295)
[2019-07-26] MEDS: PROCHLORPERAZINE 10 MG/2 ML VIAL (J0780) IV PRN (21:56)
[2019-07-26] MEDS ORDERED: KCL 10MEQ/100ML SWI (KRUN) 10 MEQ in IV 1 EA IV SCH (22:00)
[2019-07-26] MEDS: HEPARIN SOD (PORCINE) 5000 UNITS/ML VIAL SC SCH (22:00)
[2019-07-26 22:08] VITALS: BP 147/62
[2019-07-26] MEDS ORDERED: KCL 10MEQ/100ML SWI (KRUN) 10 MEQ in IV 1 EA IV ONE (23:00)
[2019-07-26] MEDS: INSULIN IV RATE CHANGE DOCUMENTATION ML/HR XX SCH (23:11)
[2019-07-26] MEDS ORDERED: POTASSIUM CHLORIDE INJ 40 MEQ in NS 0.45% 1,000 ML IV SCH (23:30)
[2019-07-27] VITALS: BP 131/70
[2019-07-27] LABS: VENOUS BASE EXCESS -12.2 (-2.0-2.0); VENOUS HCO3 11.1 MEQ/L (23.0-27.0); VENOUS O2 SATURATION 99.5 % (60.0-80.0); VENOUS PARTIAL PRESSURE CO2 20.7 mmHg (38.0-50.0); VENOUS PH 7.349 UNITS (7.330-7.430); VENOUS STANDARD HCO3 15.1 MEQ/L; VENOUS TOTAL CO2 11.8 MEQ/L (24.0-28.0)
[2019-07-27] MEDS: INSULIN IV RATE CHANGE DOCUMENTATION ML/HR XX SCH ×4 (00:05→09:23)
[2019-07-27] MEDS: KCL 40MEQ IN D5/0.45NS 1000ML 1,000 ML IV SCH ×3 (00:23→10:15)
[2019-07-27 00:31] LABS: OSMOLALITY SERUM 318 MOSM/KG (275-295)
--- NOTE | 2019-07-27 00:39 | HPEPDOC ---
[facility] Medical History & Physical Date of Admission Jul 26, 2019 Date of Service: Jul 26, 2019 Attending Physician: CRISTO WARNER MD History and Physical CHIEF COMPLAINT: Transfer from outside hospital for hyperglycemia, nausea, vomiting, diarrhea HISTORY OF PRESENT ILLNESS: Geeta Tate (Alex) is a 44 YO transgender F who identifies as M who presents as transfer from outside hospital for nausea, vomiting, diarrhea and hyperglycemia >350. He reports that he started feeling nauseous and began vomiting 4 days ago. He reports 8/10 diffuse abdominal pain that is worst in his epigastric region. He has been unable to keep any food down and has been having watery diarrhea for the past 2 days. Denies any blood in his stool or his vomit. Denies eating out or eating anything undercooked or out of the ordinary. He has a history of gallstones, but denies association with fatty foods. He does have a history of gastroparesis from her diabetes. He is currently on Invokana and Ozempic at home. Initially, his sugars were found to be in the 140s, but increased to 450. He was transferred to [facility] for higher level of care. REVIEW OF SYSTEMS: CONSTITUTIONAL: Feels ill, no fevers or chills HEENT: denies vision changes, no sinus problems, denies any trouble swallowing CARDIOVASCULAR: no palpitations RESPIRATORY: Denies any shortness of breath GENITOURINARY: No dysuria MUSCULOSKELETAL: Denies any joint/muscle pain GASTROINTESTINAL: Reports 8 out of 10 abdominal pain mostly in the epigastric region, feels nauseous and is vomiting. Reports watery diarrhea SKIN: No new rashes or lesions NEUROLOGICAL: No loss of sensation PSYCHIATRIC: Reports normal mood, no delusions or hallucinations ENDOCRINE: No hot/cold intolerance HEMATOLOGIC/LYMPHATIC: No easy bruising, no lumps/bumps ALLERGIC/IMMUNOLOGIC: No sinus symptoms PAST MEDICAL /SURGICAL HISTORY: Insulin-dependent type 2 diabetes, (last known A1c > 14%, follows with Dr. Carolina Torres) Asthma Asperger's disease Bipolar disorder Glaucoma Rheumatoid arthritis SOCIAL HISTORY: Former smoker, quit more than 20 years ago, denies alcohol, denies illicit drug use FAMILY HISTORY: Noncontributory ALLERGIES: Please see below. HOME MEDICATIONS: Please see below. PHYSICAL EXAMINATION: VITAL SIGNS: Please see below. GENERAL APPEARANCE: Laying in bed, appears stated age, no acute distress, calm, cooperative HEENT: EOMI, PERRLA, neck is supple with no thyromegaly or lymphadenopathy RESPIRATORY: Lungs are clear to auscultation bilaterally with no adventitious breath sounds appreciated CARDIOVASCULAR: no JVD, RRR,no murmurs/rubs/gallops ABDOMEN: Abdomen is tender to light palpation in the right upper and right lower quadrant. There is no rebound tenderness, but there is guarding. Soft, no evidence of masses or organomegaly EXTREMITIES: no clubbing, cyanosis or edema noted NEUROLOGICAL: No obvious focal deficits PSYCHIATRIC: normal mood/affect Skin: No rashes or ulcers. LN: No significant cervical or inguinal lymphadenopathy LABORATORY DATA: See below. IMAGING: none MICROBIOLOGY: Please see below. ASSESSMENT: This is a 44-year-old female with uncontrolled type 2 diabetes who reported to outside hospital with nausea, vomiting and diarrhea, found to have hyperglycemia and has been transferred to [facility] for treatment of diabetic keto acidosis. She will be admitted to the ICU. PLAN: 1. Diabetic ketoacidosis: The patient reports she has uncontrolled diabetes with most recent A1c of 14%. She is only on Invokana and Ozempic and follows with Endocrinology. The etiology of DKA likely gastroenteritis and nausea/vomiting could be secondary to history of gastroparesis. Her WBC is mildly elevated and she is somewhat tachycardic, but has no fevers. No obvious source of infection at this time. -K found to be 3.3 at outside hospital. 2 k runs ordered -Anion gap found to be 26. -Lactic acid 2.1 -BGL found to be 319, will check fingersticks every hour -Beta hydroxybutyrate > 46 with urine found to have 2+ ketones and 3+ glucose -Will start DKA protocol: Q1H fingersticks, normal saline IV fluids, electrolyte repletion, will switch to D5/1/2 NS fluids once blood sugar below 250, with Kcl added to fluids -Compazine and Toradol for abdominal pain -Zofran for Nausea -VBG not concerning for acidosis -A1c found to be 10.6%. Once BGL better controlled will switch to insulin coverage. Will hold home medications 2. [place]: Likely 2/2 dehydration from vomiting/diarrhea -Likely to improve with fluids -Holding any nephrotoxic medications 3. History of hypertension: Patient's blood pressure found to be 131/70 -Likely secondary to pain. Will hold home lisinopril for the time being given elevated creatinine. We'll continue to monitor blood pressure as her pain level decreases and will give her medication as necessary. 4. GERD: -Protonix 5. Mood disorder: -Continue Cymbalta DISPO: likely home after more than 2 midnight's stay pending clinical improvement. Vital Signs Vital Signs Date Time Temp Pulse Resp B/P (MAP) Pulse Ox O2 Delivery O2 Flow Rate FiO2 07/26/19 20:46 118 18 167/83 (111) 99 Room Air 07/26/19 19:45 97.5 Laboratory Data Labs 24H Laboratory Tests 2 07/26/19 19:41: Bedside Glucose (Misc Panel) 334H 07/26/19 20:23: Nucleated Red Blood Cells % (auto) 0.0, Prothrombin Time 13.8, Prothromb Time International Ratio 1.09 07/26/19 20:25: 07/26/19 20:41: Bedside Glucose (Misc Panel) 325H 07/26/19 20:54: CBC/BMP Laboratory Tests 07/26/19 20:23 Microbiology Microbiology 07/26/19 Blood Culture, Received Pending Home Medications Scheduled Atorvastatin Calcium (Atorvastatin Calcium) 20 Mg Tab, 20 MG PO DAILY Canagliflozin (Invokana) 300 Mg Tablet, 300 MG PO DAILY Duloxetine Hcl (Duloxetine HCl) 60 Mg Cap, 60 MG PO BID Leflunomide (Leflunomide) 20 Mg Tablet, 10 MG PO DAILY Levocetirizine Dihydrochloride (Levocetirizine Dihydrochloride) 5 Mg Tablet, 5 MG PO DAILY Lisinopril (Lisinopril) 5 Mg Tab, 10 MG PO DAILY Montelukast Sodium (Montelukast Sodium) 10 Mg Tab, 10 MG PO DAILY Omeprazole (Omeprazole) 40 Mg Capsule.dr, 40 MG PO DAILY Scheduled PRN Tramadol HCl (Tramadol HCl) 50 Mg Tablet, 50 MG PO Q6H PRN for PAIN Allergies Coded Allergies: Gluten Flour (Verified Allergy, Intermediate, 11/11/18) erythromycin base (Verified Allergy, Intermediate, rash, 07/26/19) [place] (Unverified Allergy, Unknown, 11/11/18) latex (Unverified Allergy, Unknown, 07/26/19) aspirin (Verified Adverse Reaction, Intermediate, HALLUCINATIONS, ELEVATED TEMP, 07/26/19) GME ATTESTATION GME ATTESTATION My faculty preceptor for this patient encounter was physically present during the encounter and was fully available. All aspects of the patient interview, examination, medical decision making process, and medical care plan development were reviewed and approved by the faculty preceptor. The faculty preceptor is aware and concurs with the plan as stated in the body of this note and will attest to such by his/her cosignature. ATTENDING NOTE I examined at 850PM discussed the case with and agree with the findings as documented above with the addition of the following: Ms. Evan Cook is a 44 transgender M w a PMH of DM2, Asthma and Bipolar disorder who was transferred from an outside hospital for management of DKA possibly 2/2 Canagliflozin vs gastroenteritis. 1.DKA- f/u serial labs and bridge once the glucose is <200, she is no longer vomiting and able to eat, AG<12, HCO3 >15 and pH >7.3. 2.[place] - IVF 3.Tachycardia likely 2/2 dehydration - IVF 4.Asthma -resume home meds 5.Bipolar Disorder -resume home meds Dispo: likely home after at least 2 midnight's stay VIOLET MAN MD Jul 26, 2019 21:14 CRISTO WARNER MD Jul 27, 2019 06:10
[2019-07-27 00:47] LABS: BLOOD UREA NITROGEN 30 MG/DL (7-18); CALCIUM LEVEL 8.2 MG/DL (8.5-10.1); CARBON DIOXIDE LEVEL 14 MEQ/L (21-32); CHLORIDE LEVEL 105 MEQ/L (98-107); CREATININE FOR GFR 1.23 MG/DL (0.55-1.30); GLUCOSE, FASTING 224 MG/DL (70-100); PHOSPHORUS LEVEL 1.8 MG/DL (2.5-4.9); POTASSIUM SERUM 3.4 MEQ/L (3.5-5.1); SODIUM LEVEL 142 MEQ/L (136-145); TROPONIN I < 0.02 NG/ML (< 0.10)
[2019-07-27] MEDS ORDERED: POTASSIUM PHOSPHATE INJ 15 MMOL in D5W 250 ML IV ONE (01:30)
[2019-07-27] MEDS ORDERED: INFLUENZA QUADRIVALENT PF VACCINE 0.5ML SYRINGE (90686) IM SCH (01:45)
[2019-07-27 04:12] VITALS: BP 128/62
[2019-07-27] MEDS: ONDANSETRON 4MG/2ML VIAL (J2405) IV PRN ×2 (04:25→09:24)
[2019-07-27 04:40] LABS: CREATININE FOR GFR 1.32 MG/DL (0.55-1.30); PHOSPHORUS LEVEL 1.7 MG/DL (2.5-4.9); POTASSIUM SERUM 4.1 MEQ/L (3.5-5.1)
[2019-07-27] MEDS: PROCHLORPERAZINE 10 MG/2 ML VIAL (J0780) IV PRN (04:58)
[2019-07-27] MEDS: HEPARIN SOD (PORCINE) 5000 UNITS/ML VIAL SC SCH ×3 (05:03→20:26)
[2019-07-27 07:54] LABS: VENOUS BASE EXCESS -10.8 (-2.0-2.0); VENOUS O2 SATURATION 96.1 % (60.0-80.0); VENOUS PARTIAL PRESSURE O2 86.6 mmHg (30.0-50.0); VENOUS PH 7.352 UNITS (7.330-7.430); VENOUS STANDARD HCO3 15.9 MEQ/L; VENOUS TOTAL CO2 13.7 MEQ/L (24.0-28.0)
[2019-07-27 07:56] VITALS: BP 126/61
[2019-07-27 08:20] LABS: OSMOLALITY SERUM 302 MOSM/KG (275-295)
[2019-07-27 08:31] LABS: BLOOD UREA NITROGEN 23 MG/DL (7-18); CALCIUM LEVEL 7.7 MG/DL (8.5-10.1); CARBON DIOXIDE LEVEL 21 MEQ/L (21-32); CHLORIDE LEVEL 111 MEQ/L (98-107); CREATININE FOR GFR 1.13 MG/DL (0.55-1.30); GLOMERULAR FILTRATION RATE 56.2 (>58); GLUCOSE, FASTING 189 MG/DL (70-100); SODIUM LEVEL 140 MEQ/L (136-145); TROPONIN I < 0.02 NG/ML (< 0.10)
[2019-07-27] MEDS: DULoxetine 30 MG CAP (CYMBALTA) PO SCH ×2 (09:00→20:39)
[2019-07-27] MEDS: PANTOPRAZOLE 40MG INJ (PROTONIX) (C9113) IV SCH (09:10)
[2019-07-27] MEDS ORDERED: LEVEMIR (INSULIN DETEMIR) 1 UNITS/0.01ML SC ONE (10:00)
[2019-07-27] MEDS ORDERED: POTASSIUM PHOSPHATE INJ 30 MMOL in D5W 500 ML IV ONE ×2 (11:00→13:45)
[2019-07-27 11:38] LABS: VENOUS BASE EXCESS -6.3 (-2.0-2.0); VENOUS HCO3 17.5 MEQ/L (23.0-27.0); VENOUS O2 SATURATION 98.5 % (60.0-80.0); VENOUS PARTIAL PRESSURE CO2 29.8 mmHg (38.0-50.0); VENOUS PARTIAL PRESSURE O2 126.1 mmHg (30.0-50.0); VENOUS PH 7.386 UNITS (7.330-7.430); VENOUS STANDARD HCO3 19.4 MEQ/L; VENOUS TOTAL CO2 18.4 MEQ/L (24.0-28.0)
[2019-07-27 11:57] LABS: OSMOLALITY SERUM 296 MOSM/KG (275-295)
[2019-07-27 12:00] VITALS: BP 138/66
[2019-07-27 12:11] LABS: BLOOD UREA NITROGEN 20 MG/DL (7-18); CARBON DIOXIDE LEVEL 20 MEQ/L (21-32); CHLORIDE LEVEL 111 MEQ/L (98-107); GLOMERULAR FILTRATION RATE > 60.0 (>58); GLUCOSE, FASTING 160 MG/DL (70-100); POTASSIUM SERUM 4.1 MEQ/L (3.5-5.1); SODIUM LEVEL 140 MEQ/L (136-145)
[2019-07-27 12:12] LABS: CALCIUM LEVEL 7.5 MG/DL (8.5-10.1); MAGNESIUM LEVEL 1.9 MG/DL (1.8-2.4); PHOSPHORUS LEVEL 0.8 MG/DL (2.5-4.9)
[2019-07-27 12:34] LABS: VENOUS PARTIAL PRESSURE CO2 29.9 mmHg (38.0-50.0); VENOUS PARTIAL PRESSURE O2 142.8 mmHg (30.0-50.0); VENOUS PH 7.367 UNITS (7.330-7.430); VENOUS TOTAL CO2 17.7 MEQ/L (24.0-28.0)
[2019-07-27 12:35] LABS: VENOUS BASE EXCESS -7.2 (-2.0-2.0); VENOUS HCO3 16.8 MEQ/L (23.0-27.0); VENOUS O2 SATURATION 98.8 % (60.0-80.0); VENOUS STANDARD HCO3 18.7 MEQ/L
[2019-07-27 13:44] LABS: LIPASE 299 U/L (73-393)
[2019-07-27 16:00] VITALS: BP 141/71
[2019-07-27] MEDS: GI COCKTAIL 50ML BTL(HYOSCYAMINE/MAALOX/LIDOCAINE VISCOUS)(1:3:1) PO PRN (16:28)
[2019-07-27] MEDS: HumaLOG INSULIN (NovoLOG) PER UNIT SC SCH ×2 (17:36→20:39)
--- NOTE | 2019-07-27 18:21 | IPNPDOC ---
Date Seen The patient was seen on 07/27/19. Progress Note SUBJECTIVE: 44-year-old transgender female with past medical history of diabetes mellitus, bipolar disorder, Asperger's syndrome, asthma, rheumatoid arthritis, was admitted for DKA. She was admitted to the ICU on insulin drip, anion gap is closed today, patient tolerating diet, insulin drip discontinued, started on long and short acting insulin, patient with minimal nausea at this time; no ot her complaints at this time. She denies any short of breath, chest pain, nausea, vomiting, abdominal pain or diarrhea at this time. PHYSICAL EXAMINATION: VITAL SIGNS: Please see below. GENERAL: No distress HEENT: Normocephalic, atraumatic, moist mucous membranes NECK: Supple CARDIOVASCULAR EXAMINATION: S1, S2, no murmurs RESPIRATORY EXAMINATION: Clear to auscultation, no wheezing ABDOMINAL EXAMINATION: Soft, mild epigastric tenderness, nondistended, positive bowel sounds EXTREMITIES: Range of motion intact SKIN: No rash NEUROLOGICAL EXAMINATION: Alert and oriented 3, no focal deficits PSYCHIATRIC EXAMINATION: Calm and cooperative LABORATORY DATA, IMAGING STUDIES, MICROBIOLOGY: Please see below. DVT prophylaxis ordered?: Yes ASSESSMENT AND PLAN: 44-year-old transgender female with history of diabetes mellitus, bipolar, Asperger's syndrome, asthma and rheumatoid arthritis, was admitted for DKA. PROBLEMS: 1. DKA: Anion gap acidosis resolved, tolerating by mouth, and slender but dis continued, Levemir 20 units given, sliding scale insulin with fingersticks every 8 hours is ordered. Will downgrade to MedSurg tomorrow if remains stable. Continue lisinopril 2. Hypokalemia/hypophosphatemia. Supplemented IV, will monitor and supplement as appropriate. 3. Asthma: Continue montelukast 4. Rheumatoid arthritis: Hold DMARD for now DVT prophylaxis: Heparin subcutaneous GI prophylaxis: Protonix VS, I&O, 24H, Fishbone Vital Signs/I&O Vital Signs Date Time Temp Pulse Resp B/P (MAP) Pulse Ox O2 Delivery O2 Flow Rate FiO2 07/27/19 16:00 97.8 102 18 141/71 (94) 100 Room Air I&O- Last 24 Hours up to 6 AM 07/27/19 06:00 Intake Total 2698 ml Output Total 1400 ml Balance 1298 ml Laboratory Data 24H LABS Laboratory Tests 2 07/26/19 19:41: Bedside Glucose (Misc Panel) 334H 07/26/19 20:23: Nucleated Red Blood Cells % (auto) 0.0, Prothrombin Time 13.8, Prothromb Time International Ratio 1.09, Anion Gap 26H, Glomerular Filtration Rate 47.4L, Estimated Mean Plasma Glucose 258H, Hemoglobin A1c 10.6, Osmolality 319H, Lactic Acid Level 2.1*H, Calcium Level 8.5, Magnesium Level 2.1, Total Bilirubin 1.3H, Aspartate Amino Transf (AST/SGOT) 7, Alanine Aminotransferase (ALT/SGPT) 20, Alkaline Phosphatase 67, Troponin I < 0.02, Total Protein 7.7, Albumin 3.6, Albumin/Globulin Ratio 0.88L, Lipase 299, B-Hydroxybutyrate > 46.00H 07/26/19 20:25: Blood Gas Bicarbonate Standard 14.6, Venous Blood pH 7.293L, Venous Blood Partial Pressure CO2 24.9L, Venous Blood Partial Pressure O2 83.0H, Venous Blood Total Carbon Dioxide 12.5L, Venous Blood HCO3 11.8L, Venous Blood Oxygen Saturation 95.2H, Venous Blood Base Excess -12.8L 07/26/19 20:41: Bedside Glucose (Misc Panel) 325H 07/26/19 20:54: Urine Color STRAW, Urine Appearance CLEAR, Urine pH 5.0, Urine Specific [place] 1.021, Urine Protein NEGATIVE, Urine Glucose (UA) 3+H, Urine Ketones 2+H, Urine Ketones (Auto) 2+H, Urine Blood NEGATIVE, Urine Nitrite NEGATIVE, Urine Bilirubin NEGATIVE, Urine Urobilinogen 0.2, Urine Leukocyte Esterase NEGATIVE, Urine WBC (Auto) 1, Urine RBC (Auto) 1, Urine Hyaline Casts (Auto) 0, Urine Bacteria (Auto) 1+H, Urine Squamous Epithelial Cells 0, Urine Sperm (Auto) 07/26/19 21:55: Bedside Glucose (Misc Panel) 302H 07/26/19 23:08: Bedside Glucose (Misc Panel) 217H 07/26/19 23:53: Blood Gas Puncture Site UNKNOWN, Blood Gas Bicarbonate Standard 15.1, Venous Blood pH 7.349, Venous Blood Partial Pressure CO2 20.7L, Venous Blood Partial Pressure O2 242.0H, Venous Blood Total Carbon Dioxide 11.8L, Venous Blood HCO3 11.1L, Venous Blood Oxygen Saturation 99.5H, Venous Blood Base Excess -12.2L, Anion Gap 23H, Glomerular Filtration Rate 51.0L, Osmolality 318H, Calcium Level 8.2L, Phosphorus Level 1.8L, Troponin I < 0.02 07/27/19 00:02: Bedside Glucose (Misc Panel) 184H 07/27/19 01:14: Bedside Glucose (Misc Panel) 177H 07/27/19 02:13: Bedside Glucose (Misc Panel) 206H 07/27/19 03:12: Bedside Glucose (Misc Panel) 238H 07/27/19 03:50: Blood Gas Puncture Site UNKNOWN, Blood Gas Bicarbonate Standard 18.7, Venous Blood pH 7.367, Venous Blood Partial Pressure CO2 29.9L, Venous Blood Partial Pressure O2 142.8H, Venous Blood Total Carbon Dioxide 17.7L, Venous Blood HCO3 16.8L, Venous Blood Oxygen Saturation 98.8H, Venous Blood Base Excess -7.2L, Anion Gap 11, Glomerular Filtration Rate 47.0L, Osmolality 309H, Lactic Acid Followup at 4 Hours 1.3, Calcium Level 8.0L, Phosphorus Level 1.7L, Magnesium Level 2.0 07/27/19 04:10: Bedside Glucose (Misc Panel) 210H 07/27/19 05:02: Bedside Glucose (Misc Panel) 200H 07/27/19 05:59: Bedside Glucose (Misc Panel) 191H 07/27/19 07:02: Bedside Glucose (Misc Panel) 181H 07/27/19 07:49: Blood Gas Puncture Site UNKNOWN, Blood Gas Bicarbonate Standard 15.9, Venous Blood pH 7.352, Venous Blood Partial Pressure CO2 24.0L, Venous Blood Partial Pressure O2 86.6H, Venous Blood Total Carbon Dioxide 13.7L, Venous Blood HCO3 13.0L, Venous Blood Oxygen Saturation 96.1H, Venous Blood Base Excess -10.8L, Anion Gap 8, Glomerular Filtration Rate 56.2L, Osmolality 302H, Calcium Level 7.7L, Phosphorus Level 1.0#L, Troponin I < 0.02 07/27/19 09:15: Bedside Glucose (Misc Panel) 171H 07/27/19 10:49: Bedside Glucose (Misc Panel) 161H 07/27/19 11:30: Blood Gas Puncture Site UNKNOWN, Blood Gas Bicarbonate Standard 19.4, Venous Blood pH 7.386, Venous Blood Partial Pressure CO2 29.8L, Venous Blood Partial Pressure O2 126.1H, Venous Blood Total Carbon Dioxide 18.4L, Venous Blood HCO3 1 7.5L, Venous Blood Oxygen Saturation 98.5H, Venous Blood Base Excess -6.3L, Anion Gap 9, Glomerular Filtration Rate > 60.0, Osmolality 296H, Calcium Level 7.5L, Phosphorus Level 0.8L, Magnesium Level 1.9 07/27/19 17:14: Bedside Glucose (Misc Panel) 308H CBC/BMP Laboratory Tests 07/26/19 20:23 07/26/19 23:53 07/27/19 03:50 07/27/19 07:49 07/27/19 11:30 Microbiology Microbiology 07/26/19 Blood Culture, Received Pending 07/26/19 Blood Culture, Received Pending AUSTIN GONZALES MD Jul 27, 2019 18:21
[2019-07-27] MEDS ORDERED: traMADol 50 MG TAB PO PRN (18:30)
[2019-07-27 20:00] VITALS: BP 131/69
[2019-07-28 04:00] VITALS: BP 171/77
[2019-07-28 04:55] LABS: HEMATOCRIT 35.2 % (36.0-47.0); MEAN CORPUSCULAR HEMOGLOBIN 25.2 pg (27.0-33.0); MEAN CORPUSCULAR HGB CONC 31.8 g/dl (32.0-36.5); MEAN CORPUSCULAR VOLUME 79.1 fl (80.0-96.0); PLATELET COUNT, AUTOMATED 275 10^3/uL (150-450); RED BLOOD COUNT 4.45 10^6/uL (4.00-5.40); WHITE BLOOD COUNT 7.6 10^3/uL (4.0-10.0)
[2019-07-28 04:59] LABS: HEMOGLOBIN 11.2 g/dl (12.0-15.5)
[2019-07-28 05:17] LABS: BLOOD UREA NITROGEN 13 MG/DL (7-18); CALCIUM LEVEL 7.6 MG/DL (8.5-10.1); CARBON DIOXIDE LEVEL 22 MEQ/L (21-32); CHLORIDE LEVEL 108 MEQ/L (98-107); CREATININE FOR GFR 0.74 MG/DL (0.55-1.30); GLOMERULAR FILTRATION RATE > 60.0 (>58); GLUCOSE, FASTING 164 MG/DL (70-100); PHOSPHORUS LEVEL 1.1 MG/DL (2.5-4.9); POTASSIUM SERUM 3.4 MEQ/L (3.5-5.1); SODIUM LEVEL 140 MEQ/L (136-145)
[2019-07-28] MEDS ORDERED: LISINOPRIL 10 MG TAB PO ONE (05:30)
[2019-07-28] MEDS: HEPARIN SOD (PORCINE) 5000 UNITS/ML VIAL SC SCH ×3 (05:31→22:00)
[2019-07-28] MEDS: LISINOPRIL 5 MG TAB PO SCH (06:21)
[2019-07-28 06:34] VITALS: BP 132/70
[2019-07-28] MEDS: HumaLOG INSULIN (NovoLOG) PER UNIT SC SCH ×4 (07:50→20:21)
[2019-07-28 07:53] VITALS: BP 133/60
[2019-07-28] MEDS: GI COCKTAIL 50ML BTL(HYOSCYAMINE/MAALOX/LIDOCAINE VISCOUS)(1:3:1) PO PRN ×2 (08:44→22:01)
[2019-07-28] MEDS: ATORVASTATIN 20 MG TAB PO SCH (08:45)
[2019-07-28] MEDS: DULoxetine 30 MG CAP (CYMBALTA) PO SCH ×2 (08:45→22:01)
[2019-07-28] MEDS: MONTELUKAST 10 MG TAB PO SCH (08:45)
[2019-07-28] MEDS: PANTOPRAZOLE 40MG INJ (PROTONIX) (C9113) IV SCH (08:45)
[2019-07-28] MEDS ORDERED: POTASSIUM CHLORIDE 10 MEQ SR TABLET PO ONE (09:00)
[2019-07-28] MEDS: LEVEMIR (INSULIN DETEMIR) 1 UNITS/0.01ML SC SCH (09:03)
[2019-07-28] MEDS ORDERED: POTASSIUM PHOSPHATE INJ 30 MMOL in D5W 500 ML IV SCH (10:00)
[2019-07-28 12:13] VITALS: BP 137/74
--- NOTE | 2019-07-28 12:44 | IPNPDOC ---
Date Seen The patient was seen on 07/28/19. Progress Note SUBJECTIVE: 44-year-old transgender female with past medical history of diabetes mellitus, bipolar disorder, Asperger's syndrome, asthma, rheumatoid arthritis, was admitted for DKA. She was admitted to the ICU on insulin drip, anion gap is closed today, patient tolerating diet, insulin drip discontinued, started on long and short acting insulin, patient with minimal nausea at this time; no ot her complaints at this time. She denies any short of breath, chest pain, nausea, vomiting, abdominal pain or diarrhea at this time. 07/28/2019 Patient with mild epigastric pain at this time, no other complaints. She denies any nausea, vomiting, chest pain, diarrhea or constipation. She reports epig astric pain is well-controlled with GI cocktail and PPI. She is tolerating her diet without any issues. 10 point review of system was negative except for above PHYSICAL EXAMINATION: VITAL SIGNS: Please see below. GENERAL: No distress HEENT: Normocephalic, atraumatic, moist mucous membranes NECK: Supple CARDIOVASCULAR EXAMINATION: S1, S2, no murmurs RESPIRATORY EXAMINATION: Clear to auscultation, no wheezing ABDOMINAL EXAMINATION: Soft, mild epigastric tenderness, nondistended, positive bowel sounds EXTREMITIES: Range of motion intact SKIN: No rash NEUROLOGICAL EXAMINATION: Alert and oriented 3, no focal deficits PSYCHIATRIC EXAMINATION: Calm and cooperative LABORATORY DATA, IMAGING STUDIES, MICROBIOLOGY: Please see below. DVT prophylaxis ordered?: Yes ASSESSMENT AND PLAN: 44-year-old transgender female with history of diabetes mellitus, bipolar, Asperger's syndrome, asthma and rheumatoid arthritis, was admitted for DKA. PROBLEMS: 1. DKA: Resolved, continue Levemir 25 units daily, sliding scale insulin coverage before every meal and at bedtime, downgrade to MedSurg. Continue lisinopril Likely discharge tomorrow if stable. 2. hypophosphatemia. Supplemented IV, will monitor and supplement as appropriate. 3. Asthma: Continue montelukast 4. Rheumatoid arthritis: Hold DMARD for now DVT prophylaxis: Heparin sub VS, I&O, 24H, Fishbone Vital Signs/I&O Vital Signs Date Time Temp Pulse Resp B/P (MAP) Pulse Ox O2 Delivery O2 Flow Rate FiO2 07/28/19 12:13 97.4 94 18 137/74 (95) 07/28/19 07:53 Room Air 07/28/19 04:00 98 I&O- Last 24 Hours up to 6 AM 07/28/19 06:00 Intake Total 3220 ml Output Total 3300 ml Balance -80 ml Laboratory Data 24H LABS Laboratory Tests 2 07/27/19 17:14: Bedside Glucose (Misc Panel) 308H 07/27/19 20:29: Bedside Glucose (Misc Panel) 276H 07/28/19 04:33: Nucleated Red Blood Cells % (auto) 0.0, Anion Gap 10, Glomerular Filtration Rate > 60.0, Calcium Level 7.6L, Phosphorus Level 1.1#L, Magnesium Level 2.0 07/28/19 12:13: Bedside Glucose (Misc Panel) 181H CBC/BMP Laboratory Tests 07/28/19 04:33 Microbiology Microbiology 07/26/19 Blood Culture - Preliminary, Resulted No growth after 24 hours . All specim... 07/26/19 Blood Culture - Preliminary, Resulted No growth after 24 hours . All specim... AUSTIN GONZALES MD Jul 28, 2019 12:44
[2019-07-28] MEDS ORDERED: NS 1,000 ML IV SCH (14:00)
[2019-07-28 14:29] VITALS: BP 147/83
[2019-07-28 22:00] VITALS: BP 135/82
[2019-07-29 06:00] VITALS: BP 124/74
[2019-07-29] MEDS: HEPARIN SOD (PORCINE) 5000 UNITS/ML VIAL SC SCH ×2 (06:00→14:00)
[2019-07-29 06:01] LABS: HEMATOCRIT 34.3 % (36.0-47.0); HEMOGLOBIN 11.2 g/dl (12.0-15.5); MEAN CORPUSCULAR HEMOGLOBIN 25.4 pg (27.0-33.0); MEAN CORPUSCULAR HGB CONC 32.7 g/dl (32.0-36.5); MEAN CORPUSCULAR VOLUME 77.8 fl (80.0-96.0); PLATELET COUNT, AUTOMATED 241 10^3/uL (150-450); RED BLOOD COUNT 4.41 10^6/uL (4.00-5.40); WHITE BLOOD COUNT 6.3 10^3/uL (4.0-10.0)
[2019-07-29 06:33] LABS: BLOOD UREA NITROGEN 9 MG/DL (7-18); CALCIUM LEVEL 7.8 MG/DL (8.5-10.1); CARBON DIOXIDE LEVEL 26 MEQ/L (21-32); CHLORIDE LEVEL 108 MEQ/L (98-107); CREATININE FOR GFR 0.59 MG/DL (0.55-1.30); GLOMERULAR FILTRATION RATE > 60.0 (>58); GLUCOSE, FASTING 142 MG/DL (70-100); MAGNESIUM LEVEL 2.1 MG/DL (1.8-2.4); PHOSPHORUS LEVEL 1.5 MG/DL (2.5-4.9); POTASSIUM SERUM 3.5 MEQ/L (3.5-5.1); SODIUM LEVEL 138 MEQ/L (136-145)
[2019-07-29] MEDS ORDERED: POTASSIUM CHLORIDE 10 MEQ SR TABLET PO ONE (08:30)
[2019-07-29] MEDS ORDERED: PANTOPRAZOLE 40MG TAB (PROTONIX) PO SCH (09:00)
[2019-07-29] MEDS: LEVEMIR (INSULIN DETEMIR) 1 UNITS/0.01ML SC SCH (09:33)
[2019-07-29 09:34] VITALS: BP 124/74
[2019-07-29] MEDS: MONTELUKAST 10 MG TAB PO SCH (09:34)
[2019-07-29] MEDS: DULoxetine 30 MG CAP (CYMBALTA) PO SCH (09:34)
[2019-07-29] MEDS: HumaLOG INSULIN (NovoLOG) PER UNIT SC SCH ×2 (09:34→13:32)
[2019-07-29] MEDS: LISINOPRIL 5 MG TAB PO SCH (09:34)
[2019-07-29] MEDS: ATORVASTATIN 20 MG TAB PO SCH (09:34)
[2019-07-29] MEDS: GI COCKTAIL 50ML BTL(HYOSCYAMINE/MAALOX/LIDOCAINE VISCOUS)(1:3:1) PO PRN (09:35)
[2019-07-29] MEDS ORDERED: POTASSIUM PHOSPHATE INJ 30 MMOL in D5W 500 ML IV ONE (10:00)
--- NOTE | 2019-07-29 12:28 | DS.PDOC ---
Discharge Summary General Date of Admission Jul 26, 2019 at 19:35 Date of Discharge 07/29/2019 Attending Physician: AUSTIN GONZALES MD Discharge Summary PROCEDURES PERFORMED DURING STAY: None. ADMITTING DIAGNOSES: 1. DKA. DISCHARGE DIAGNOSES: 1. DKA. COMPLICATIONS/CHIEF COMPLAINT: DKA. HISTORY OF PRESENT ILLNESS: 44-year-old female with past medical history of diabetes mellitus, asthma, rheumatoid arthritis and bipolar disorder, was admitted for DKA. She was admitted to the ICU on insulin drip, insulin drip was discontinued after her anion gap metabolic acidosis was resolved and patient was able to tolerate by mouth. She has done well over the past 48 hours off the insulin drip, tolerating her diet, glucose well-controlled, no significant abnormalities noted on labs. Patient is hemodynamically and clinically stable for discharge home with outpatient follow-up. Patient was very deficient in electrolytes as expected from DKA, supplemented IV, patient is advised to follow up outpatient with repeat blood work to monitor need for further supplementation. HOSPITAL COURSE: As above. DISCHARGE MEDICATIONS: Please see below. ALLERGIES: Please see below. PHYSICAL EXAMINATION: VITAL SIGNS: Please see below. GENERAL: No distress HEENT: Normocephalic, atraumatic, moist mucous membranes NECK: Supple CARDIOVASCULAR EXAMINATION: S1, S2, no murmurs RESPIRATORY EXAMINATION: Clear to auscultation, no wheezing ABDOMINAL EXAMINATION: Soft, nontender, nondistended, positive bowel sounds EXTREMITIES: Range of motion intact SKIN: No rash NEUROLOGICAL EXAMINATION: Alert and oriented 3, no focal deficits PSYCHIATRIC EXAMINATION: Calm and cooperative LABORATORY DATA: Please see below. PROGNOSIS: Fair ACTIVITY: As tolerated. DIET: Consistent carbs DISCHARGE PLAN: Patient is recommended to follow-up with PCP 1-2 weeks DISPOSITION: Home. DISCHARGE INSTRUCTIONS: 1. As above. DISCHARGE CONDITION: Stable. TIME SPENT ON DISCHARGE: Greater than 33 minutes. Vital Signs/I&Os Vital Signs Date Time Temp Pulse Resp B/P (MAP) Pulse Ox O2 Delivery O2 Flow Rate FiO2 07/29/19 09:34 124/74 07/29/19 06:00 98.4 81 20 96 07/28/19 14:29 Room Air I&O- Last 24 Hours up to 6 AM 07/29/19 06:00 Intake Total 3190 ml Output Total 500 ml Balance 2690 ml Laboratory Data Labs 24H Laboratory Tests 2 07/28/19 16:58: Bedside Glucose (Misc Panel) 257H 07/28/19 19:33: Bedside Glucose (Misc Panel) 199H 07/29/19 05:37: Nucleated Red Blood Cells % (auto) 0.0, Anion Gap 4L, Glomerular Filtration Rate > 60.0, Calcium Level 7.8L, Phosphorus Level 1.5#L, Magnesium Level 2.1 CBC/BMP Laboratory Tests 07/29/19 05:37 FSBS Laboratory Tests Test 07/28/19 16:58 07/28/19 19:33 Range/Units Bedside Glucose (Misc Panel) 257 199 70-105 MG/DL Microbiology Microbiology 07/26/19 Blood Culture - Preliminary, Resulted No Growth after 48 hours. All Specime... 07/26/19 Blood Culture - Preliminary, Resulted No Growth after 48 hours. All Specime... Discharge Medications Scheduled Atorvastatin Calcium (Atorvastatin Calcium) 20 Mg Tab, 20 MG PO DAILY, (Reported) Canagliflozin (Invokana) 300 Mg Tablet, 300 MG PO DAILY, (Reported) Duloxetine Hcl (Duloxetine HCl) 60 Mg Cap, 60 MG PO BID, (Reported) Leflunomide (Leflunomide) 20 Mg Tablet, 10 MG PO DAILY, (Reported) Levocetirizine Dihydrochloride (Levocetirizine Dihydrochloride) 5 Mg Tablet, 5 MG PO DAILY, (Reported) Lisinopril (Lisinopril) 5 Mg Tab, 10 MG PO DAILY, (Reported) Montelukast Sodium (Montelukast Sodium) 10 Mg Tab, 10 MG PO DAILY, (Reported) Omeprazole (Omeprazole) 40 Mg Capsule.dr, 40 MG PO DAILY, (Reported) Scheduled PRN Tramadol HCl (Tramadol HCl) 50 Mg Tablet, 50 MG PO Q6H PRN for PAIN, (Reported) Allergies Coded Allergies: Gluten Flour (Verified Allergy, Intermediate, 11/11/18) erythromycin base (Verified Allergy, Intermediate, rash, 07/26/19) [place] (Unverified Allergy, Unknown, 11/11/18) latex (Unverified Allergy, Unknown, 07/26/19) aspirin (Verified Adverse Reaction, Intermediate, HALLUCINATIONS, ELEVATED TEMP, 07/26/19) AUSTIN GONZALES MD Jul 29, 2019 12:28
== END 2019-07-29 16:20 | disposition home or self-care (01) | DRG 420 ==
LOC: M ICU 19:35 → M MSPAV 07-28 14:14
PROVIDERS: ADMIT Internal Medicine; ATTEND Internal Medicine
DX: E11.10 Type 2 diabetes mellitus with ketoacidosis without coma (principal); N17.9 Acute kidney failure, unspecified; E83.39 Other disorders of phosphorus metabolism; K31.84 Gastroparesis; E11.65 Type 2 diabetes mellitus with hyperglycemia; E86.0 Dehydration; F84.5 Asperger's syndrome; F31.9 Bipolar disorder, unspecified; H40.9 Unspecified glaucoma; J45.909 Unspecified asthma, uncomplicated; K52.9 Noninfective gastroenteritis and colitis, unspecified; K21.9 Gastro-esophageal reflux disease without esophagitis; I10 Essential (primary) hypertension; M06.9 Rheumatoid arthritis, unspecified; Z87.891 Personal history of nicotine dependence; Z79.84 Long term (current) use of oral hypoglycemic drugs; Z79.899 Other long term (current) drug therapy; Z88.6 Allergy status to analgesic agent; Z91.018 Allergy to other foods; Z91.040 Latex allergy status; E87.6 Hypokalemia; E11.43 Type 2 diabetes mellitus with diabetic autonomic (poly)neuropathy

== ENCOUNTER → 2019-08-22 | Outpatient (CLI) | payer OTHER ==
[~2019-08-22] MED LIST changes: +LEFL1TAB4 PO; +LEVOTAB10 PO; +OMEP-221 PO; +TRAM50TA2 PO
== END ==
LOC: M LAB 09:39
PROVIDERS: ATTEND Internal Medicine Endocrinology, Diabetes & Metabolism
DX: E11.65 Type 2 diabetes mellitus with hyperglycemia (principal)

== ENCOUNTER → 2019-08-22 | Outpatient (REF) | payer OTHER, MEDICAID ==
[2019-08-22 15:16] LABS: HEMOGLOBIN A1c 9.9 %
[2019-08-22 15:37] LABS: ALBUMIN 3.8 GM/DL (3.2-5.2); ALT/SGPT 26 U/L (12-78); BLOOD UREA NITROGEN 11 MG/DL (7-18); CALCIUM LEVEL 9.8 MG/DL (8.5-10.1); CARBON DIOXIDE LEVEL 24 MEQ/L (21-32); CHLORIDE LEVEL 98 MEQ/L (98-107); CHOLESTEROL LEVEL 167 MG/DL (<200); CHOLESTEROL RISK RATIO 5.566 (<5); GLOMERULAR FILTRATION RATE > 60.0 (>58); GLUCOSE, FASTING 289 MG/DL (70-100); HDL CHOLESTEROL 30 MG/DL (>40); LDL CHOLESTEROL 85 MG/DL (<100); NON-HDL-C 137 MG/DL; POTASSIUM SERUM 4.6 MEQ/L (3.5-5.1); SODIUM LEVEL 134 MEQ/L (136-145); TOTAL PROTEIN 7.7 GM/DL (6.4-8.2); TRIGLYCERIDES LEVEL 261 MG/DL (<150)
== END ==
LOC: M LAB REF 13:01
PROVIDERS: ATTEND Family Medicine
DX: E11.9 Type 2 diabetes mellitus without complications (principal)

== ENCOUNTER → 2020-05-13 | Outpatient (CLI) | payer OTHER ==
[~2020-05-13] MED LIST changes: -LORA1TAB12 PO; +LORA1TAB4 PO; -MONT10TA2 PO; +MONT10TA4 PO
== END ==
LOC: M LABSMTC 11:44
PROVIDERS: ATTEND Orthopaedic Surgery
DX: Z11.59 Encounter for screening for other viral diseases (principal)
CPT/HCPCS: C9803; U0003

== ENCOUNTER → 2020-10-26 | Outpatient (REF) | payer OTHER ==
[~2020-10-26] MED LIST changes: -LISI-542 PO; +LISI-898 PO; +MONT10TA10 PO; -MONT10TA4 PO
[2020-10-26 18:50] LABS: MAU/CREAT RATIO 119.3 MCG/MG (0.0-30.0)
== END ==
LOC: M LAB REF 16:48
PROVIDERS: ATTEND Nurse Practitioner Family
DX: E11.65 Type 2 diabetes mellitus with hyperglycemia (principal)

== ENCOUNTER → 2020-11-08 | Outpatient (CLI) | payer OTHER ==
--- NOTE | 2020-11-08 17:12 | REP ---
INDICATION: RIGHT ELBOW PAIN. COMPARISON: None. TECHNIQUE: AP and lateral right elbow. FINDINGS: There is no acute fracture, dislocation or intrinsic bone disease. The joint spaces appear normal. There is no radiographic evidence of a joint effusion. IMPRESSION: Negative right elbow series. <Electronically signed by Stanley Dick > 11/08/20 [id number]
== END ==
LOC: M SOG 01:21
PROVIDERS: ATTEND Orthopaedic Surgery Sports Medicine
DX: M77.11 Lateral epicondylitis, right elbow (principal)

== ENCOUNTER 2021-04-28 02:33 | Emergency (ER) | payer OTHER ==
[~2021-04-28] VITALS: Ht 165.1 cm; Wt 97.7 kg
[2021-04-28] MEDS ORDERED: OZEM2INJ2 SC (02:46)
[2021-04-28] MEDS ORDERED: NOVOINJ3 SC (02:46)
[2021-04-28] MEDS ORDERED: BASA100I SC (02:46)
[2021-04-28 04:56] LABS: BASO # 0.1 10^3/uL (0.0-0.2); EOS # 0.2 10^3/uL (0.0-0.5); EOS % 2.7 % (0.0-3.0); HEMATOCRIT 34.1 % (36.0-47.0); LYMPH # 2.9 10^3/uL (1.5-5.0); LYMPH % 41.1 % (24.0-44.0); MEAN CORPUSCULAR HEMOGLOBIN 25.1 pg (27.0-33.0); MEAN CORPUSCULAR HGB CONC 32.3 g/dl (32.0-36.5); MEAN CORPUSCULAR VOLUME 77.9 fl (80.0-96.0); MONO # 0.8 10^3/uL (0.0-0.8); MONO % 11.1 % (2.0-8.0); NEUTROPHILS % 43.5 % (36.0-66.0); PLATELET COUNT, AUTOMATED 327 10^3/uL (150-450); RED BLOOD COUNT 4.38 10^6/uL (4.00-5.40); WHITE BLOOD COUNT 6.9 10^3/uL (4.0-10.0)
[2021-04-28 05:34] LABS: BLOOD UREA NITROGEN 17 MG/DL (7-18); CALCIUM LEVEL 8.8 MG/DL (8.5-10.1); CARBON DIOXIDE LEVEL 28 MEQ/L (21-32); CHLORIDE LEVEL 102 MEQ/L (98-107); CREATININE FOR GFR 0.95 MG/DL (0.55-1.30); GLOMERULAR FILTRATION RATE > 60.0 (>58); GLUCOSE, FASTING 295 MG/DL (70-100); POTASSIUM SERUM 4.7 MEQ/L (3.5-5.1); SODIUM LEVEL 136 MEQ/L (136-145)
[2021-04-28 06:40] VITALS: BP 153/72
== END 2021-04-28 06:49 | disposition home or self-care (01) ==
LOC: M ED 04:42
DX: R25.2 Cramp and spasm (principal); E11.40 Type 2 diabetes mellitus with diabetic neuropathy, unspecified; I10 Essential (primary) hypertension; E78.5 Hyperlipidemia, unspecified; J45.909 Unspecified asthma, uncomplicated; F17.200 Nicotine dependence, unspecified, uncomplicated; K90.41 Non-celiac gluten sensitivity; Z79.4 Long term (current) use of insulin; Z79.899 Other long term (current) drug therapy; Z91.018 Allergy to other foods; Z88.8 Allergy status to other drugs, medicaments and biological substances; Z88.1 Allergy status to other antibiotic agents; Z91.040 Latex allergy status

== ENCOUNTER → 2021-04-29 | Outpatient (CLI) | payer OTHER ==
[~2021-04-29] MED LIST changes: +BASA100I SC; +NOVOINJ3 SC; +OZEM2INJ2 SC
[2021-04-29 15:43] LABS: ALBUMIN 3.1 GM/DL (3.2-5.2); ALT/SGPT 24 U/L (12-78); BILIRUBIN,TOTAL 0.4 MG/DL (0.2-1.0); BLOOD UREA NITROGEN 15 MG/DL (7-18); CALCIUM LEVEL 9.1 MG/DL (8.5-10.1); CARBON DIOXIDE LEVEL 29 MEQ/L (21-32); CHLORIDE LEVEL 103 MEQ/L (98-107); CHOLESTEROL LEVEL 304 MG/DL (<200); CHOLESTEROL RISK RATIO 7.238 (<5); CREATININE FOR GFR 0.78 MG/DL (0.55-1.30); FERRITIN 36 NG/ML (8-252); FREE T4 1.17 NG/DL (0.76-1.46); GLOMERULAR FILTRATION RATE > 60.0 (>58); GLUCOSE, FASTING 214 MG/DL (70-100); HDL CHOLESTEROL 42 MG/DL (>40); LDL CHOLESTEROL 209 MG/DL (<100); NON-HDL-C 262 MG/DL; POTASSIUM SERUM 4.6 MEQ/L (3.5-5.1); SODIUM LEVEL 136 MEQ/L (136-145); THYROID STIMULATING HORMONE 0.597 uIU/ML (0.358-3.740); TOTAL PROTEIN 6.7 GM/DL (6.4-8.2); TRIGLYCERIDES LEVEL 267 MG/DL (<150)
[2021-04-29 16:24] LABS: MAU/CREAT RATIO 661.5 MCG/MG (0.0-30.0)
== END ==
LOC: M PLALAB 10:24
PROVIDERS: ATTEND Nurse Practitioner Family
DX: E78.2 Mixed hyperlipidemia (principal)

== ENCOUNTER → 2021-04-29 | Outpatient (REF) | payer OTHER ==
[2021-04-29 17:12] LABS: BASO # 0.1 10^3/uL (0.0-0.2); BASO % 0.9 % (0.0-1.0); EOS # 0.1 10^3/uL (0.0-0.5); HEMATOCRIT 37.1 % (36.0-47.0); HEMOGLOBIN 11.7 g/dl (12.0-15.5); LYMPH # 2.4 10^3/uL (1.5-5.0); MEAN CORPUSCULAR HEMOGLOBIN 25.2 pg (27.0-33.0); MEAN CORPUSCULAR HGB CONC 31.5 g/dl (32.0-36.5); MONO # 0.5 10^3/uL (0.0-0.8); MONO % 7.9 % (2.0-8.0); NEUTROPHILS # 3.3 10^3/uL (1.5-8.5); NEUTROPHILS % 51.6 % (36.0-66.0); PLATELET COUNT, AUTOMATED 366 10^3/uL (150-450); RED BLOOD COUNT 4.64 10^6/uL (4.00-5.40); WHITE BLOOD COUNT 6.5 10^3/uL (4.0-10.0)
[2021-04-29 17:39] LABS: ALBUMIN 3.1 GM/DL (3.2-5.2); ALT/SGPT 22 U/L (12-78); BILIRUBIN,TOTAL 0.4 MG/DL (0.2-1.0); BLOOD UREA NITROGEN 15 MG/DL (7-18); C REACTIVE PROTEIN QUANTITATIV 0.64 MG/DL (0.00-0.30); CALCIUM LEVEL 8.5 MG/DL (8.5-10.1); CARBON DIOXIDE LEVEL 26 MEQ/L (21-32); CHLORIDE LEVEL 104 MEQ/L (98-107); CREATININE FOR GFR 0.79 MG/DL (0.55-1.30); GLOMERULAR FILTRATION RATE > 60.0 (>58); GLUCOSE, FASTING 232 MG/DL (70-100); POTASSIUM SERUM 4.6 MEQ/L (3.5-5.1); RHEUMATOID FACTOR QUANT < 10.0 IU/ML (<15.0); SODIUM LEVEL 135 MEQ/L (136-145); TOTAL PROTEIN 6.7 GM/DL (6.4-8.2)
[2021-04-29 17:58] LABS: HEPATITIS B SURFACE ANTIGEN NEGATIVE (NEGATIVE)
[2021-04-29 18:06] LABS: ERYTHROCYTE SEDIMENTATION RATE 28 mm/hr (0-20)
[2021-04-29 18:26] LABS: HEPATITIS C VIRUS ABY INDEX 0.1 INDEX (<0.8)
== END ==
LOC: M SFHCRHEU 12:19
PROVIDERS: ATTEND Internal Medicine Rheumatology
DX: M06.09 Rheumatoid arthritis without rheumatoid factor, multiple sites (principal)

== ENCOUNTER 2021-05-20 15:31 | Emergency (ER) | payer OTHER ==
[~2021-05-20] VITALS: Ht 165.1 cm; Wt 93.2 kg
--- NOTE | 2021-05-20 19:43 | REP ---
INDICATION: cough, sob. COMPARISON: 11/11/2018. TECHNIQUE: Single portable AP view of the chest was performed. FINDINGS: There is no acute infiltrate or pulmonary edema. Lungs are clear. The heart is not significantly enlarged. The mediastinal silhouette is unremarkable. The visualized osseous structures are intact. IMPRESSION: No acute pulmonary disease. <Electronically signed by Stanley Dick > 05/20/21 [id number]
[2021-05-20] MEDS ORDERED: AFRI0.058 (19:58)
[2021-05-20] MEDS ORDERED: NAPR-837 PO (19:58)
[2021-05-20] MEDS ORDERED: BENZ200C70 PO (19:58)
[2021-05-20] MEDS ORDERED: BENZONATATE 100 MG CAP PO ONE (20:30)
[2021-05-20 20:48] VITALS: BP 131/78
== END 2021-05-20 20:53 | disposition home or self-care (01) ==
LOC: M ED 15:31
DX: J45.909 Unspecified asthma, uncomplicated (principal); R05 Cough; F17.200 Nicotine dependence, unspecified, uncomplicated; M54.32 Sciatica, left side; E11.40 Type 2 diabetes mellitus with diabetic neuropathy, unspecified; Z79.4 Long term (current) use of insulin; Z79.899 Other long term (current) drug therapy; Z91.018 Allergy to other foods; Z91.040 Latex allergy status; Z88.1 Allergy status to other antibiotic agents; Z88.8 Allergy status to other drugs, medicaments and biological substances

== ENCOUNTER 2021-06-15 14:39 | Outpatient (RCR) | payer OTHER ==
[~2021-06-15 14:39] MED LIST changes: +AFRI0.058; +BENZ200C70 PO
== END 2021-06-16 ==
LOC: M PT 14:39
PROVIDERS: ATTEND Nurse Practitioner Family
DX: M54.42 Lumbago with sciatica, left side (principal)

== ENCOUNTER 2021-07-02 22:02 | Emergency (ER) | payer OTHER ==
[~2021-07-02] VITALS: Ht 165.1 cm; Wt 92.1 kg
--- OUTSIDE RECORDS SUMMARY | 2021-07-02 22:10 | CCD ---
Author Author [facility] Organization [facility] Address Unknown Phone Unavailable Care Team Providers Care Assistant Speech Language Pathologist Name Role Phone Georgina Gates Unavailable PROBLEMS Type Condition ICD9-CM Code [id number] Code Onset Dates Condition S tatus W/U Status Risk SNOMED Code Notes Problem Mixed hyperlipidemia E78.2 Active confirmed 235167097 Problem Type 2 diabetes mellitus without complications E11 .9 Active confirmed 598547347 Problem Mild intermittent asthma with acute exacerbation J 45.21 Active confirmed 790130319 Problem Primary hypertension I10 Active confirmed 65096183 Problem group home (current) use of insulin Z79.4 Activ e confirmed 359205715 Problem Other iron deficiency anemia D50.8 Active confirme d 12686017 Problem Rheumatoid arthritis, involv ing unspecified site, unspecified whether rheumatoid factor present M06.9 Active confirmed 6989 6004 Problem Gastroesophageal reflux dise ase, unspecified whether esophagitis present K21.9 Active confirmed 028345877 Problem Non-seasonal allergic rhinitis, unspecified trigger J30.89 Active confirmed 50349657 Problem Rheumatoid arthritis of multiple sites w ith negative rheumatoid factor M06.09 Active confirmed 527524404 ALLERGIES Allergen (clinical drug ingredient) Drug/Non Drug Allergy do cumented on EMR Reaction Allergy Type Onset Date Status erythromycin Erythromycin(ND Code:[address]-31) Unknown Drug All ergy Active Latex Latex Unknown Non Drug Allergy Active aspirin Aspirin(ND Code:[address]-51) Unknown Drug Allergy Active ENCOUNTERS from 1977 to 2021-05-04 Encounter Location Date Provider Diagnosis [facility] [address] [facility] [phone] [place] [address] Apr, Georgina Gates Mixed hyperlipidemia E78.2 IMMUNIZATIONS Vaccine Route Administration Date Status Influenza 6mo & up Fluzone Unknown March 24, 2016 Other s SOCIAL HISTORY Tobacco Use: Social History Observation Description Date Details (start date - stop date) Former Smoker Sex Assigned At : Social History Observation Description Sex Assigned At Unknown Audit Question Answer Notes Total Score: 1 Interpretation: Alcohol Education Sexual Hx: Question Answer Notes Had sex in the last 12 months (vaginal, oral, or anal)? No Have you ever had an STD? No Drug and Alcohol Question Answer Notes Total Score: 0 Interpretation: No problems reported Tobacco Use: Question Answer Notes Are you a: former smoker How long has it been since you last smoked? > 10 years REASON FOR REFERRAL No Information VITAL SIGNS No information MEDICATIONS Medication SIG (Take, Route, Frequency, Duration) Notes Start Da te End Date Status Naproxen 250 MG 1 tablet Orally Twice a day as needed for migraine Active Singulair 10 MG 1 tablet Orally Once a day for 30 Days Active Basaglar KwikPen 100 UNIT/ML 24 units Subcutaneous once daily Active Ferrous Gluconate 324 (37.5 Fe) MG 1 tablet with water or juice between meals Orally Once a day with menses for 30 day(s) Apr, Active Promethazine HCl 25 MG TAKE ONE TABLET BY MOUTH THR EE TIMES A DAY FOR 3 DAYS Oral for 3 Active Cymbalta 60 MG 2capsule Orally once daily for 30 days Active Hydroxychloroquine Sulfate 200 MG TAKE 2 TABLETS BY MOUTH DAILY Ora l for 30 Not-Taking Lisinopril 10 MG 1 tablet Orally Once a day for 30 day(s) Active Albuterol Sulfate 108 (90 Base) MCG/ACT 1 puff as need ed Inhalation every 4 hrs for 30 Days Active NovoLOG FlexPen 100 UNIT/ML 2-10 units Subcutaneous Per meal Active Levocetirizine Dihydrochloride 5 MG 1 tablet in the ev ening Orally Once a day for 30 day(s) Active predniSONE 10 MG 3 tabs x 3 days, then 2 tabs x 3 days, then 1 tab x 4 days Orally Once a day for 10 day(s) Dec, Not-Taking Rosuvastatin Calcium 20 MG 1 tablet Orally Once a day for 30 day(s) stop simvastatin Apr, Active Ozempic 1 unit intramuscularly once a week Active Omeprazole 40 MG take one capsule by mouth ev ju day at bedtime Oral Daily for 30 Days Active PROCEDURES No Information RESULTS No Results REASON FOR VISIT lab results, med change MEDICAL (GENERAL) HISTORY Type Description Date Medical History Asthma Medical History Celiac disease Medical History Type 2 Diabetes - [address] Torres Medical History Depression/ Anxiety/ Autism - [facility] Medical History PCOS, ovarian torsion Medical History rheumatoid arthritis (previo usly followed at [facility]) Medical History GERD Medical History HYperlipidemia Medical History Allergic rhinitis Medical History Glaucoma Medical History HTN Medical History [place] splints Surgical History Appendectomy/ Right oopherectomy 05/2001 Surgical History Rt Unlar nerve release, carpral tunnel 2019 Surgical History [place] teeth 1998 Hospitalization History Mental Health suicide attempt 01/2015 Hospitalization History D[place], [place], HTN, GERD, Mood disorder 1 09/2018 Hospitalization History Surgery related Goals Section No Information Health Concerns No Information MEDICAL EQUIPMENT No Information MENTAL STATUS No Information FUNCTIONAL STATUS No Information ASSESSMENTS Encounter Date Diagnosis Assessment Notes Treatment Notes Treatm ent Clinical Notes Apr, Mixed hyperlipidemia (ICD-10 - E78.2) PLAN OF TREATMENT Medication Medication Name Sig Start Date Stop Date Rosuvastatin Calcium 20 MG 1 tablet Orally Once a day for 30 day(s) Apr, Future Test Test Name Order Date Comprehensive Metabolic Profile (CMP) [id number] LIPID PANEL (CARDIAC RISK) [id number] Next Appt Details Provider Name:Georgina Gates, 2021-08-02 11:3 0:00 AM, [address] [facility], , [place], [address], Insurance Providers Payer Name Payer Address Payer Phone Insured Name Patient Relati onship to Insured Coverage Start Date Coverage End Date [facility] [address] [facility] [id number] RAMILA CHEW
--- OUTSIDE RECORDS SUMMARY | 2021-07-02 22:10 | CCD ---
Author Author [facility] Organization [facility] Address Unknown Phone Unavailable Care Team Providers Care Stave Block Roller Name Role Phone Davey Gatese Unavailable PROBLEMS Type Condition ICD9-CM Code [id number] Code Onset Dates Condition S tatus W/U Status Risk SNOMED Code Notes Problem Mixed hyperlipidemia E78.2 Active confirmed 088597524 Problem Type 2 diabetes mellitus without complications E11 .9 Active confirmed 920473438 Problem Mild intermittent asthma with acute exacerbation J 45.21 Active confirmed 452687749 Problem Primary hypertension I10 Active confirmed 38558350 Problem [facility] (current) use of insulin Z79.4 Activ e confirmed 693618623 Problem Other iron deficiency anemia D50.8 Active confirme d 71470377 Problem Rheumatoid arthritis, involv ing unspecified site, unspecified whether rheumatoid factor present M06.9 Active confirmed 6989 6004 Problem Gastroesophageal reflux dise ase, unspecified whether esophagitis present K21.9 Active confirmed 132087176 Problem Non-seasonal allergic rhinitis, unspecified trigger J30.89 Active confirmed 81873504 Problem Rheumatoid arthritis of multiple sites w ith negative rheumatoid factor M06.09 Active confirmed 145959478 ALLERGIES Allergen (clinical drug ingredient) Drug/Non Drug Allergy do cumented on EMR Reaction Allergy Type Onset Date Status erythromycin Erythromycin(ND Code:[address]-70) Unknown Drug All ergy Active Latex Latex Unknown Non Drug Allergy Active aspirin Aspirin(NDC Code:[address]-78) Unknown Drug Allergy Active ENCOUNTERS from 1977 to 2021-05-20 Encounter Location Date Provider Diagnosis [facility] [address] [facility] [phone] [place] [address] May, Georgina Gates IMMUNIZATIONS Vaccine Route Administration Date Status Influenza [...] Once a day for 30 Days Active Levocetirizine Dihydrochloride 5 MG TAKE 1 TABLET BY M OUTH ONCE A DAY IN THE EVENING for 30 Active Ferrous Gluconate 324 (37.5 Fe) MG [...] Once a day for 30 day(s) Active Basaglar KwikPen 100 UNIT/ML 24 units Subcutaneous once daily Active NovoLOG FlexPen 100 UNIT/ML 2-10 units Subcutaneous Per meal Active Ozempic 1 unit intramuscularly once a week Active predniSONE 10 MG 3 tabs x 3 days, then 2 tabs x 3 days, then 1 tab x 4 days Orally Once a day for 10 day(s) Dec, Not-Taking Rosuvastatin Calcium 20 MG 1 tablet Orally Once a day for 30 day(s) stop simvastatin Apr, Active Albuterol Sulfate 108 (90 Base) MCG/ACT 1 puff as need ed Inhalation every 4 hrs for 30 Days Active Omeprazole 40 MG take one capsule by mouth ev day at bedtime Oral Daily for 30 Days Active PROCEDURES No Information RESULTS No Results REASON FOR VISIT SOB MEDICAL (GENERAL) HISTORY Type Description Date Medical History Asthma Medical History Celiac disease Medical History Type [address] Torres Medical History Depression/ Anxiety/ Autism - [facility] Medical History PCOS, ovarian torsion Medical History rheumatoid arthritis (previo usly followed at [facility]) Medical History GERD Medical History HYperlipidemia Medical History Allergic rhinitis Medical History Glaucoma Medical History HTN Medical History [place] splints Surgical History Appendectomy/ Right oopherectomy 05/2001 Surgical History Rt Unlar nerve release, carpral tunnel 2020 Surgical History [place] teeth 1997 Hospitalization History Mental Health suicide attempt 01/2015 Hospitalization History DKA, [place], HTN, GERD, Mood disorder 1 09/2018 Hospitalization History Surgery related Goals Section No Information Health Concerns No Information MEDICAL EQUIPMENT No Information MENTAL STATUS No Information FUNCTIONAL STATUS No Information ASSESSMENTS No Information PLAN OF TREATMENT Medication Medication Name Sig Start Date Stop Date Levocetirizine Dihydrochloride 5 MG TAKE 1 TABLET BY M OUTH ONCE A DAY IN THE EVENING for 30 Rosuvastatin Calcium 20 MG 1 tablet Orally Once a day for 30 day(s) Apr, Next Appt Details Provider Name:Georgina Gates, 2021-08-02 11:3 0:00 AM, [address] [facility], , [place], [address], Insurance Providers Payer Name Payer Address Payer Phone Insured Name Patient Relati onship to Insured Coverage Start Date Coverage End Date [facility] [address] [place] [phone] RAMILA CHEW
--- OUTSIDE RECORDS SUMMARY | 2021-07-02 22:10 | CCD ---
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 Activ e confirmed 470284444 Problem Mixed hyperlipidemia E78.2 Active confirmed 437120207 Problem Type 2 diabetes mellitus without complications E11 .9 Active confirmed 147915578 Problem Rheumatoid arthritis, involv ing unspecified site, unspecified whether rheumatoid factor present M06.9 Active confirmed 6989 6004 Problem Moderate persistent asthma with acute exacerbation J45.41 Active confirmed [id number] Problem Non-seasonal allergic rhinitis, unspecified trigger J30.89 Active confirmed 21871412 Problem Acute midline low back pain with left-sided sciatica M54.42 Active confirmed 473436477 Problem Gastroesophageal reflux dise ase, unspecified whether esophagitis present K21.9 Active confirmed 028237355 Problem Mild intermittent asthma with acute exacerbation J 45.21 Active confirmed 524645178 Problem Rheumatoid arthritis of multiple sites w ith negative rheumatoid factor M06.09 Active confirmed 261215487 Problem Other iron deficiency anemia D50.8 Active confirme d 08348883 Problem Primary hypertension I10 Active confirmed 12952880 ALLERGIES Allergen (clinical drug ingredient) Drug/Non Drug Allergy do cumented on EMR Reaction Allergy Type Onset Date Status erythromycin Erythromycin(NDC Code:[address]-00) Unknown Drug All ergy Active Latex Latex Unknown Non Drug Allergy Active aspirin Aspirin(NDC Code:[address]-09) Unknown Drug Allergy Active ENCOUNTERS from 1977 to 2021-06-01 Encounter Location Date Provider Diagnosis [address] [phone] [place] [address] 10 May, 2021 Georgina Gates Moderate persistent asthma w ith acute exacerbation J45.41 ; Non- seasonal allergic rhinitis, unspecified trigger J30.89 and Acute midline low back pain with left-sided sciatica M54.42 IMMUNIZATIONS Vaccine Route Administration Date Status Influenza [...] smoked? > 10 years REASON FOR REFERRAL from 1977 to 2021-06-01 Reason eval and treat for low back pain with sciatic pain left leg Diagnosis 1 Acute midline low back pain with left-sided sciatica (M54.42) Referral Organization [facility] Referring Provider First Name Georgina Referring Provider Last Name Kody Referring Provider Specialty Family Medicine Referred Provider [facility] ([place]) Referred Provider Specialty Physical Therapist Referral Priority Routine General Notes DarlynVanessa 05/31/2021 1:37: 49 PM > faxed VITAL SIGNS Weight 201 lbs May, Height 66 in May, BMI 32.44 kg/m2 May, Heart Rate 82 /min May, Respiratory Rate 20 /min May, Temperature 97 degrees Fahrenheit May, Oximetry 100 May, Blood pressure systolic 130 mm Hg May, Blood pressure diastolic 80 mm Hg May, MEDICATIONS Medication SIG (Take, Route, Frequency, Duration) Notes Start Da te End Date Status Basaglar KwikPen 100 UNIT/ML 24 units Subcutaneous once daily Active Ozempic 1 unit intramuscularly once a week Active Naprosyn 500 MG 1 tablet with food or milk as needed Orally every 12 hrs Active Physical Therapy evaluate and treat as directed _ 1-3X /week DX: M54.42 for 30 Days May, Active Rosuvastatin Calcium 20 MG 1 tablet Orally Once a day for 30 day(s) stop simvastatin Apr, Active Benzonatate 200 MG 1 cap Orally twice daily Active Levocetirizine Dihydrochloride 5 MG TAKE 1 TABLET BY M OUTH ONCE A DAY IN THE EVENING Active Lisinopril 10 MG 1 tablet Orally Once a day for 30 day(s) Active Albuterol Sulfate 108 (90 Base) MCG/ACT 1 puff as needed Inh alation every 4 hrs Active Oxymetazoline HCl 0.05 % 2 sprays Nasally twice daily Active Azelastine HCl 0.1 % 1 puff in each nostril Nasally Twice a day for 30 day(s) May, Active Cymbalta 60 MG 2capsule Orally once daily for 30 days Active Omeprazole 40 MG take one capsule by mouth ev ju day at bedtime Oral Daily for 30 Days Active predniSONE 10 MG 3 tabs x 3 days, then 2 tabs x 3 days, then 1 tab x 4 days Orally Once a day for 10 day(s) Dec, Not-Taking Ferrous Gluconate 324 (37.5 Fe) MG 1 tablet with water or juice between meals Orally Once a day with menses for 30 day(s) Apr, Active Promethazine HCl 25 MG TAKE ONE TABLET BY MOUTH THR EE TIMES A DAY FOR 3 DAYS Oral for 3 Active Hydroxychloroquine Sulfate 200 MG TAKE 2 TABLETS BY MOUTH DAILY Ora l for 30 Not-Taking Flovent Diskus 100 MCG/BLIST 1 puff Inhalation Twice a day for 3 0 Days May, Active Singulair 10 MG 1 tablet Orally Once a day Active NovoLOG FlexPen 100 UNIT/ML 2-10 units Subcutaneous Per meal Active PROCEDURES No Information RESULTS No Results REASON FOR VISIT [facility] ER f/up MEDICAL (GENERAL) HISTORY Type Description Date Medical History Asthma Medical History Celiac disease Medical History Type [address] Torres Medical History Depression/ Anxiety/ Autism - [facility] Medical History PCOS, ovarian torsion Medical History rheumatoid arthritis (previo usly followed at [facility]) Medical History GERD Medical History HYperlipidemia Medical History Allergic rhinitis Medical History Glaucoma Medical History HTN Medical History [place] splints Surgical History Appendectomy/ Right oopherectomy 05/2001 Surgical History Rt Unlar nerve release, carpral tunnel 2020 Surgical History [place] teeth 1997 Hospitalization History Mental Health suicide attempt 01/2015 Hospitalization History [place], [place], HTN, GERD, Mood disorder 1 09/2018 Hospitalization History Surgery related Goals Section No Information Health Concerns No Information MEDICAL EQUIPMENT No Information MENTAL STATUS No Information FUNCTIONAL STATUS No Information ASSESSMENTS Encounter Date Diagnosis Assessment Notes Treatment Notes Treatm ent Clinical Notes May, Moderate persistent asthma w ith acute exacerbation (ICD-10 - J45.41) May, Non-seasonal allergic rhinit is, unspecified trigger (ICD-10 - J30.89) May, Acute midline low back pain with left-sided sciatica (ICD-10 - M54.42) PLAN OF TREATMENT Medication Medication Name Sig Start Date Stop Date Albuterol Sulfate 108 (90 Base) MCG/ACT 1 puff as needed Inh alation every 4 hrs Flovent Diskus 100 MCG/BLIST 1 puff Inhalation Twice a day f or 30 Days May, Physical Therapy evaluate and treat as directed _ 1-3X /week DX: M54.42 for 30 Days May, Singulair 10 MG 1 tablet Orally Once a day Naprosyn 500 MG 1 tablet with food or milk as needed Orally ever y 12 hrs Azelastine HCl 0.1 % 1 puff in each nostril Nasally Twice a day for 30 day(s) May, Levocetirizine Dihydrochloride 5 MG TAKE 1 TABLET BY M OUTH ONCE A DAY IN THE EVENING Referrals Referral Date Details eval and treat for low back pain with sciatic pain left leg, Physical Therapy ([place]) [facility] Next Appt Details R/S NOV - transfer care (RS) Reason: Provider Name:Anayeli Quinonez, 2021-07-28 02:00:00 PM, [address] [place] [address] , [place], [address], Provider Name:Candis Esparza, 2020-09 10:15:00 AM, [address] [place] [address] , [place], [address], Insurance Providers Payer Name Payer Address Payer Phone Insured Name Patient Relati onship to Insured Coverage Start Date Coverage End Date [facility] [address] [facility] [phone] RAMILA CHEW
--- OUTSIDE RECORDS SUMMARY | 2021-07-02 22:11 | CCD ---
Author Author [facility] Organization [facility] Address Unknown Phone Unavailable Care Team Providers Care System Engineer Name Role Phone Georgina Gates Unavailable PROBLEMS Type Condition ICD9-CM Code [id number] Code Onset Dates Condition S tatus W/U Status Risk SNOMED Code Notes Problem Mixed hyperlipidemia E78.2 Active confirmed 369886097 Problem Type 2 diabetes mellitus without complications E11 .9 Active confirmed 416224562 Problem Mild intermittent asthma with acute exacerbation J 45.21 Active confirmed 420476069 Problem Primary hypertension I10 Active confirmed 86546686 Problem senior care (current) use of insulin Z79.4 Activ e confirmed 300285053 Problem Other iron deficiency anemia D50.8 Active confirme d 51810400 Problem Rheumatoid arthritis, involv ing unspecified site, unspecified whether rheumatoid factor present M06.9 Active confirmed 6989 6004 Problem Gastroesophageal reflux dise ase, unspecified whether esophagitis present K21.9 Active confirmed 421149545 Problem Non-seasonal allergic rhinitis, unspecified trigger J30.89 Active confirmed 24378456 Problem Rheumatoid arthritis of multiple sites w ith negative rheumatoid factor M06.09 Active confirmed 901907546 ALLERGIES Allergen (clinical drug ingredient) Drug/Non Drug Allergy do cumented on EMR Reaction Allergy Type Onset Date Status erythromycin Erythromycin(ND Code:[address]-36) Unknown Drug All ergy Active Latex Latex Unknown Non Drug Allergy Active aspirin Aspirin(ND Code:[address]-39) Unknown Drug Allergy Active ENCOUNTERS from 1977 to 2021-05-04 Encounter Location Date Provider Diagnosis [facility] [address] [facility] [phone] [place] [address] Apr, Georgina Gates Leg cramping R25.2 ; Other i seamus deficiency anemia D50.8 ; Mild intermittent asthma with acute exacerbation J45.21 ; Non-seasonal allergic rhinitis, unspecified trigger J30.89 ; Gastroesophageal reflux disease, unspecified whether esophagitis present K21.9 ; Mixed hyperlipidemia E78.2 ; Primary hypertension I10 and Type 2 diabetes mellitus without complications E11.9 IMMUNIZATIONS Vaccine Route Administration Date Status Influenza [...] years REASON FOR REFERRAL from 1977 to 2021-05-04 Reason please evaluate patient with heavy menses, iron deficiency anemia Diagnosis 1 Other iron deficiency anemia (D50.8) Referral Organization [facility] Kristy Referring Provider First Name Georgina Referring Provider Last Name Kody Referring Provider Specialty Family Medicine Referred Organization [facility] Referred Provider RONALD,([facility]) Referred Address [address] [place] [address] [place] [phone] Referred Provider Specialty OB - Gynecology Referral Priority Routine General Notes JeannetteleesaVanessa 04/29/2021 11:16 :31 AM > faxed VITAL SIGNS Weight 210 lbs Apr, Height 66 in Apr, BMI 33.89 kg/m2 Apr, Heart Rate 84 /min Apr, Respiratory Rate 20 /min Apr, Temperature 97.1 degrees Fahrenheit Apr, Oximetry 98 Apr, Blood pressure systolic 134 mm Hg Apr, Blood pressure diastolic 80 mm Hg Apr, MEDICATIONS Medication SIG (Take, Route, Frequency, Duration) Notes Start Da te End Date Status Simvastatin 20 MG 1 tablet in the evening Orally Once a day for 30 Da ys Active Lisinopril 10 MG 1 tablet Orally Once a day for 30 day(s) Active Albuterol Sulfate 108 (90 Base) MCG/ACT 1 puff as need ed Inhalation every 4 hrs for 30 Days Active Promethazine HCl 25 MG TAKE ONE TABLET BY MOUTH THR EE TIMES A DAY FOR 3 DAYS Oral for 3 Active Basaglar KwikPen 100 UNIT/ML 24 units Subcutaneous once daily Active Ferrous Gluconate 324 (37.5 Fe) MG 1 tablet with water or juice between meals Orally Once a day with menses for 30 day(s) Apr, Active predniSONE 10 MG 3 tabs x 3 days, then 2 tabs x 3 days, then 1 tab x 4 days Orally Once a day for 10 day(s) Dec, Not-Taking Hydroxychloroquine Sulfate 200 MG TAKE 2 TABLETS BY MOUTH DAILY Ora l for 30 Not-Taking Ozempic 1 unit intramuscularly once a week Active Omeprazole 40 MG take one capsule by mouth ev ju day at bedtime Oral Daily for 30 Days Active Singulair 10 MG 1 tablet Orally Once a day for 30 Days Active NovoLOG FlexPen 100 UNIT/ML 2-10 units Subcutaneous Per meal Active Cymbalta 60 MG 2capsule Orally once daily for 30 days Active Levocetirizine Dihydrochloride 5 MG 1 tablet in the ev ening Orally Once a day for 30 day(s) Active Naproxen 250 MG 1 tablet Orally Twice a day as needed for migraine Active PROCEDURES No Information RESULTS No Results REASON FOR VISIT [facility] ED, 04/28, leg cramping MEDICAL (GENERAL) HISTORY Type Description Date Medical History Asthma Medical History Celiac disease Medical History Type 2 Diabetes - [address] Torres Medical History Depression/ Anxiety/ Autism - [facility] Medical History PCOS, ovarian torsion Medical History rheumatoid arthritis (previo usly followed at [facility]) Medical History GERD Medical History HYperlipidemia Medical History Allergic rhinitis Medical History Glaucoma Medical History HTN Medical History Valera splints Surgical History Appendectomy/ Right oopherectomy 05/2001 Surgical History Rt Unlar nerve release, carpral tunnel 2019 Surgical History [place] teeth 1998 Hospitalization History Mental Health suicide attempt 01/2015 Hospitalization History D[place], [place], HTN, GERD, Mood disorder 1 09/2018 Hospitalization History Surgery related Goals Section No Information Health Concerns No Information MEDICAL EQUIPMENT No Information MENTAL STATUS No Information FUNCTIONAL STATUS No Information ASSESSMENTS Encounter Date Diagnosis Assessment Notes Treatment Notes Treatm ent Clinical Notes Apr, Leg cramping (ICD-10 - R25.2) advised re: leg stretching exercises Apr, Other iron deficiency anemia (ICD-10 - D50.8) advised on administration and side effects of medication prescribed and pt verbalized understanding Apr, Mild intermittent asthma with acute exac erbation (ICD-10 - J45.21) advised on administration and side effects of medication prescribed and pt verbalized understanding, f/up if symptoms worsen or not improved with treatment Apr, Non-seasonal allergic rhinit is, unspecified trigger (ICD-10 - J30.89) Apr, Gastroesophageal reflux dise ase, unspecified whether esophagitis present (ICD-10 - K21.9) Apr, Mixed hyperlipidemia (ICD-10 - E78.2) f/up after labs Apr, Primary hypertension (ICD-10 - I10) Apr, Type 2 diabetes mellitus without complications ( ICD-10 - E11.9) f/up per dr Torres PLAN OF TREATMENT Treatment Notes Assessment Notes Clinical Notes Leg cramping advised re: leg stretching exercises Other iron deficiency anemia advised on administration and side effects of medication prescribed and pt verbalized understanding Mild intermittent asthma with acute exacerbation advised on administration and side effects of medication prescribed and pt verbalized understanding, f/up if symptoms worsen or not improved with treatment Mixed hyperlipidemia f/up after labs Type 2 diabetes mellitus without complications f/up per dr Mueller caroline Treatment Notes Test Name Order Date Comprehensive Metabolic Profile (CMP) 2021-04-29 LIPID PANEL (CARDIAC RISK) 2021-04-29 MICROALBUMIN RANDOM 2021-04-29 FREE T4 & TSH PANEL 2021-04-29 FERRITIN 2021-04-29 Referrals Referral Date Details please evaluate patient with heavy menses, iron deficiency anemia, ([facility]) [facility], [address] [facility], [place], [address], Next Appt Details 3 Months(30min) Reason:f/u after labs Provider Name:Georgina Gates, 2021-08-02 11:3 0:00 AM, [facility] [facility], , [place], [address], Follow Up:3 Months(30min)f/u after labs Insurance Providers Payer Name Payer Address Payer Phone Insured Name Patient Relati onship to Insured Coverage Start Date Coverage End Date [facility] [address] [facility] [id number] RAMILA CHEW
--- OUTSIDE RECORDS SUMMARY | 2021-07-02 22:11 | CCD ---
Author Author [facility] Organization [facility] Address Unknown Phone Unavailable Care Team Providers Care Stockroom Worker Name Role Phone LaithEmily wu Unavailable PROBLEMS Type Condition ICD9-CM Code CDG51-MM Code Onset Dates Condition S tatus W/U Status Risk SNOMED Code Notes Problem Mixed hyperlipidemia E78.2 Active confirmed 612936534 Problem Type 2 diabetes mellitus without complications E11 .9 Active confirmed 517973123 Problem Mild intermittent asthma with acute exacerbation J 45.21 Active confirmed 845300850 Problem Primary hypertension I10 Active confirmed 26377000 Problem [facility] (current) use of insulin Z79.4 Activ e confirmed 473033547 Problem Other iron deficiency anemia D50.8 Active confirme d 45202463 Problem Rheumatoid arthritis, involv ing unspecified site, unspecified whether rheumatoid factor present M06.9 Active confirmed 6989 6004 Problem Gastroesophageal reflux dise ase, unspecified whether esophagitis present K21.9 Active confirmed 547418415 Problem Non-seasonal allergic rhinitis, unspecified trigger J30.89 Active confirmed 34633306 Problem Rheumatoid arthritis of multiple sites w ith negative rheumatoid factor M06.09 Active confirmed 375262897 ALLERGIES Allergen (clinical drug ingredient) Drug/Non Drug Allergy do cumented on EMR Reaction Allergy Type Onset Date Status erythromycin Erythromycin(NDC Code:[address]-79) Unknown Drug All ergy Active Latex Latex Unknown Non Drug Allergy Active aspirin Aspirin(NDC Code:[address]-80) Unknown Drug Allergy Active ENCOUNTERS from 1977 to 2021-05-03 Encounter Location Date Provider Diagnosis [facility] Rheumatology [address] [place] [address] [place] [address] Apr, Emily Ozuna Rheumatoid arthritis [facility] sites with negative rheumatoid factor M06.09 IMMUNIZATIONS Vaccine Route Administration Date Status Influenza [...] REASON FOR REFERRAL No Information VITAL SIGNS Weight 209.8 lbs Apr, Weight-kg 95.16 kg Apr, Height 66 in Apr, BMI 33.86 kg/m2 Apr, Heart Rate 104 /min Apr, Respiratory Rate 20 /min Apr, Temperature 98.1 degrees Fahrenheit Apr, Oximetry 97 Apr, Blood pressure systolic 132 mm Hg Apr, Blood pressure diastolic 84 mm Hg Apr, MEDICATIONS Medication SIG (Take, [...] for migraine Active PROCEDURES No Information RESULTS Component Value Reference Range CBC with Differential Reviewed date:05/03/2021 12:04:35 Interpretation: Performing Lab:[facility] [address] [facility] [address] , ,[place] [address] WHITE BLOOD COUNT 6.5 4.0-10.0 RED BLOOD COUNT 4.64 4.00-5.40 HEMOGLOBIN 11.7 12.0-15.5 HEMATOCRIT 37.1 36.0-47.0 MEAN CORPUSCULAR VOLUME 80.0 80.0-96.0 MEAN CORPUSCULAR HEMOGLOBIN 25.2 27.0-33.0 MEAN CORPUSCULAR HGB CONC 31.5 32.0-36.5 RED CELL DISTRIBUTION WIDTH 13.1 11.5-14.5 PLATELET COUNT, AUTOMATED 366 150-450 NEUTROPHILS % 51.6 36.0-66.0 LYMPH % 37.0 24.0-44.0 MONO % 7.9 2.0-8.0 EOS % 2.0 0.0-3.0 BASO % 0.9 0.0-1.0 NEUTROPHILS # 3.3 1.5-8.5 LYMPH # 2.4 1.5-5.0 MONO # 0.5 0.0-0.8 EOS # 0.1 0.0-0.5 BASO # 0.1 0.0-0.2 Comprehensive Metabolic Profile (CMP) Reviewed date:05/03/2021 12:04:35 Interpretation: Performing Lab:[facility], [facility] LABORATORY [address] [facility] [address] , ,[place] [address] GLUCOSE, FASTING 232 70-100 BLOOD UREA NITROGEN 15 7-18 CREATININE FOR GFR 0.79 0.55-1.30 GLOMERULAR FILTRATION RATE > 60.0 >58 SODIUM LEVEL 135 136-145 POTASSIUM SERUM 4.6 3.5-5.1 CHLORIDE LEVEL 104 98-107 CARBON DIOXIDE LEVEL 26 21-32 CALCIUM LEVEL 8.5 8.5-10.1 AST/SGOT 15 7-37 ALT/SGPT 22 12-78 ALKALINE PHOSPHATASE 72 45-117 BILIRUBIN,TOTAL 0.4 0.2-1.0 TOTAL PROTEIN 6.7 6.4-8.2 ALBUMIN 3.1 3.2-5.2 ALBUMIN/GLOBULIN RATIO 0.9 1.2-2.2 C REACTIVE PROTEIN QUANTITATIV (At [facility] L [facility]) Reviewed date:05/03/2021 12:04:36 Interpretation: Performing Lab:[facility], [facility] LABORATORY [address] [facility] [address] , ,[place] [address] C REACTIVE PROTEIN QUANTITATIV 0.64 0.00-0.30 HEPATITIS B SURFACE ANTIGEN Reviewed date:05/03/2021 12:04:36 Interpretation: Performing Lab:[facility], [facility] LABORATORY [address] [facility] [address] , ,[place] [address] HEPATITIS B SURFACE ANTIGEN NEGATIVE NEGATIVE ERYTHROCYTE SEDIMENTATION RATE Reviewed date:05/03/2021 12:04:36 Interpretation: Performing Lab:[facility], [facility] LABORATORY [address] [facility] [address] , ,[place] [address] ERYTHROCYTE SEDIMENTATION RATE 28 0-20 HEPATITIS C ANTIBODY INDEX Reviewed date:05/03/2021 12:04:36 Interpretation: Performing Lab:[facility], [facility] LABORATORY [address] [facility] [address] , ,[place] [address] HEPATITIS C VIRUS FARHAD INDEX 0.1 <0.8 RHEUMATOID FACTOR QUANT Reviewed date:05/03/2021 12:04:36 Interpretation: Performing Lab:[facility], [facility] LABORATORY [address] [facility] [address] , ,[place] [address] RHEUMATOID FACTOR QUANT < 10.0 <15.0 REASON FOR VISIT C/o joint pain in multiple joints. MEDICAL (GENERAL) HISTORY Type Description Date Medical History Asthma Medical History Celiac disease Medical History Type [address] Torres Medical History Depression/ Anxiety/ Autism - [facility] Medical History PCOS, ovarian torsion Medical History rheumatoid arthritis (previo usly followed at [facility]) Medical History GERD Medical History HYperlipidemia Medical History Allergic rhinitis Medical History Glaucoma Medical History HTN Medical History [place]era splints Surgical History Appendectomy/ Right oopherectomy 05/2001 Surgical History Rt Unlar nerve release, carpral tunnel 2020 Surgical History [place] teeth 1998 Hospitalization History Mental Health suicide attempt 01/2015 Hospitalization History D[place], [place], HTN, GERD, Mood disorder 1 09/2018 Hospitalization History Surgery related Goals Section No Information Health Concerns No Information MEDICAL EQUIPMENT No Information MENTAL STATUS No Information FUNCTIONAL STATUS No Information ASSESSMENTS Encounter Date Diagnosis Assessment Notes Treatment Notes Treatm ent Clinical Notes Apr, Rheumatoid arthritis of mult iple sites with negative rheumatoid factor (ICD-10 - M06.09) Seronegative Diagnosed in June 2018 with possible evidence of inflammatory arthritis and mild elevated inflammation markers Good response to steroid Dosepaks No response to Plaquenil, sulfasalazine, leflunomide so far Today with mild puffiness of the right fifth PIP but diffuse tenderness of palpation on the bilateral MCP and PIP No clear evidence of inflammatory arthritis today on exam Labs ordered for further evaluation X-rays ordered for further eval If labs and x-rays normal consider MRI of the right hand for further evaluation for underlying inflammatory arthritis Depending on labs and x-rays will consider low-dose of prednisone to assess response Return in 6-week Apr, Other PATIENT INSTRUCTIONS: Labs today Xrays ordered for today if all normal will order MRI right hand prior to next visit return in 6 weeks More than 50% of the 50 minute visit was spent in patient education, counseling, and coordination of care. I reviewed her symptoms, imaging findings, laboratory results, physical findings, and treatment to date. I have answered patient's questions, and they stated satisfaction regarding the treatment plan and recommendations. PLAN OF TREATMENT Treatment Notes Assessment Notes Clinical Notes Rheumatoid arthritis of multiple sites with negative rheumat oid factor SeronegativeDiagnosed in June 2018 with possible evidence of inflammatory arthritis and mild elevated inflammation markersGood response to steroid DosepaksNo response to Plaquenil, sulfasalazine, leflunomide so farToday with mild puffiness of the right fifth PIP but diffuse tenderness of palpation on the bilateral MCP and PIPNo clear evidence of inflammatory arthritis today on examLabs ordered for further evaluationX-rays ordered for further evalIf labs and x-rays normal consider MRI of the right hand for further evaluation for underlying inflammatory arthritisDepending on labs and x-rays will consider low- dose of prednisone to assess responseReturn in 6-week Treatment Notes Test Name Order Date CYCLIC CITRULLINATED PEPTIDE 2021-04-29 HEPATITIS B CORE ANTIBODY IGG 2021-04-29 HLA-B27 2021-04-29 ANTI-SJOGRENS A&B ANTIBODIES 2021-04-29 MISCELLANEOUS TEST LAB 2021-04-29 QUANTIFERON TB GOLD TEST 2021-04-29 NICK TITER & PATTERN 2021-04-29 [facility] Foot, complete 2021-04-29 [facility] Hand, complete 2021-04-29 Next Appt Details 6 Weeks Reason: Provider Name:Georgina Gates, 2021-08-02 11:3 0:00 AM, [address] [facility], , [place], [address], Insurance Providers Payer Name Payer Address Payer Phone Insured Name Patient Relati onship to Insured Coverage Start Date Coverage End Date [facility] [address] [place] [phone] RAMILA CHEW
--- OUTSIDE RECORDS SUMMARY | 2021-07-02 22:11 | CCD ---
Author Author [facility] Organization [facility] Address Unknown Phone Unavailable Support Name Relationship Address Phone NO, CONTACT EMERGENCY Next Of Kin [address] [facility] [address] [place] [address] DICKSS[place] Next Of Kin [id number] [place] [address] [employer] Next Of Kin [address] [address] Mike Steve Next Of Kin Unknown Unavailable Katherine Witt Next Of Kin [address] [place] [address] BARBARA CABRAL Next Of Kin [address] [place] [address] Unavailable Gagan Myers MD Next Of Kin [address] [place] [address] Eliz Valencia Next Of Kin [address] [place] [address] Laisha Zelaya MD Next Of Kin [address] [place] [address] MIKE GARCIA Next Of Kin [address] [place] [address] MIKE STEVE Next Of Kin [address] [place] [address] NONE, PATIENT PER Next Of Kin - - -, - - - MIKE BRANHAM Next Of Kin [address] [place] [address] UN Next Of Kin Unknown Unavailable UE Next Of Kin Unknown Unavailable MIKE AQUINO Next Of Kin [address] [place] [address] Mike Steve ECON [address] [place] [address] [phone] Care Team Providers Care Stores Laborer Name Role Phone Ami VU MD Unavailable Unavailable Ami VU MD Unavailable Unavailable HORACE, Ami INTERIANO MD Unavailable Unavailable ULBERG, Ami INTERIANO MD Unavailable Unavailable ULBERG, Ami INTERIANO MD Unavailable Unavailable ULBERG, Ami INTERIANO MD Unavailable Unavailable ULBERG, Ami INTERAINO MD Unavailable Unavailable ULAmi MORRELL MD Unavailable Unavailable ULBERG, Ami INTERIANO MD Unavailable Unavailable ULBERG, Ami INTERIANO MD Unavailable Unavailable HORACE, Ami INTERIANO MD Unavailable Unavailable ULBERG, Ami INTERIANO MD Unavailable Unavailable ULBERGAmi MD Unavailable Unavailable ULBERGAmi MD Unavailable Unavailable Ami VU MD Unavailable Unavailable Ami VU MD Unavailable Unavailable Katherine Sevilla DIRECTOR PATIENT ACCOUNTING DIRECTOR PATIENT ACCOUNTING Unavailable Unavailable AndresNestor MD Unavailable Unavailable AndresNestor MD Unavailable Unavailable AndresNestor MD Unavailable Unavailable SARAH, B CRISTO TRANSIT SPECIALIST Unavailable Unavailable SARAH, B CRISTO TRANSIT SPECIALIST Unavailable Unavailable SARAH, B CRISTO TRANSIT SPECIALIST Unavailable Unavailable SARAH, B CRISTO TRANSIT SPECIALIST Unavailable Unavailable SARAH, B CRISTO TRANSIT SPECIALIST Unavailable Unavailable SARAH, B CRISTO TRANSIT SPECIALIST Unavailable Unavailable SARAH, B CRISTO TRANSIT SPECIALIST Unavailable Unavailable SARAH, B CRISTO TRANSIT SPECIALIST Unavailable Unavailable SARAH, B CRISTO TRANSIT SPECIALIST Unavailable Unavailable SARAH, B CRISTO TRANSIT SPECIALIST Unavailable Unavailable SARAH, B CRISTO TRANSIT SPECIALIST Unavailable Unavailable SARAH, B CRISTO TRANSIT SPECIALIST Unavailable Unavailable SARAH, B CRISTO TRANSIT SPECIALIST Unavailable Unavailable SARAH, B CRISTO TRANSIT SPECIALIST Unavailable Unavailable SARAH, B CRISTO TRANSIT SPECIALIST Unavailable Unavailable SARAH, B CRISTO TRANSIT SPECIALIST Unavailable Unavailable SARAH, B CRISTO TRANSIT SPECIALIST Unavailable Unavailable SARAH, B CRISTO TRANSIT SPECIALIST Unavailable Unavailable SARAH, B CRISTO TRANSIT SPECIALIST Unavailable Unavailable SARAH, B CRISTO TRANSIT SPECIALIST Unavailable Unavailable SARAH, B CRISTO TRANSIT SPECIALIST Unavailable Unavailable SARAH, B CRISTO TRANSIT SPECIALIST Unavailable Unavailable SARAH, B CRISTO TRANSIT SPECIALIST Unavailable Unavailable SARAH, B CRISTO TRANSIT SPECIALIST Unavailable Unavailable SARAH, B CRISTO TRANSIT SPECIALIST Unavailable Unavailable SARAH, B CRISTO TRANSIT SPECIALIST Unavailable Unavailable SARAH, B CRISTO TRANSIT SPECIALIST Unavailable Unavailable SARAH, B CRISTO TRANSIT SPECIALIST Unavailable Unavailable SARAH, B CRISTO TRANSIT SPECIALIST Unavailable Unavailable SARAH, B CRISTO TRANSIT SPECIALIST Unavailable Unavailable SARAH, B CRISTO TRANSIT SPECIALIST Unavailable Unavailable SARAH, B CRISTO TRANSIT SPECIALIST Unavailable Unavailable SARAH, B CRISTO TRANSIT SPECIALIST Unavailable Unavailable SARAH, B CRISTO TRANSIT SPECIALIST Unavailable Unavailable ASRAH, B CRISTO TRANSIT SPECIALIST Unavailable Unavailable SARAH, B CRISTO TRANSIT SPECIALIST Unavailable Unavailable SARAH, B CRISTO TRANSIT SPECIALIST Unavailable Unavailable SARAH, B CRISTO TRANSIT SPECIALIST Unavailable Unavailable SARAH, B CRISTO TRANSIT SPECIALIST Unavailable Unavailable SARAH, B CRISTO TRANSIT SPECIALIST Unavailable Unavailable SARAH, B CRISTO TRANSIT SPECIALIST Unavailable Unavailable SARAH, B CRISTO TRANSIT SPECIALIST Unavailable Unavailable SARAH, B CRISTO TRANSIT SPECIALIST Unavailable Unavailable SARAH, B CRISTO TRANSIT SPECIALIST Unavailable Unavailable SARAH, B CRISTO TRANSIT SPECIALIST Unavailable Unavailable SARAH, B CRISTO TRANSIT SPECIALIST Unavailable Unavailable SARAH, B CRISTO TRANSIT SPECIALIST Unavailable Unavailable SARAH, B CRISTO TRANSIT SPECIALIST Unavailable Unavailable SARAH, B CRISTO TRANSIT SPECIALIST Unavailable Unavailable SARAH, B CRISTO TRANSIT SPECIALIST Unavailable Unavailable SARAH, B CRISTO TRANSIT SPECIALIST Unavailable Unavailable SARAH, B CRISTO TRANSIT SPECIALIST Unavailable Unavailable SARAH, B CRISTO TRANSIT SPECIALIST Unavailable Unavailable SARAH, B CRISTO TRANSIT SPECIALIST Unavailable Unavailable SARAH, B CRISTO TRANSIT SPECIALIST Unavailable Unavailable SARAH, B CRISTO TRANSIT SPECIALIST Unavailable Unavailable SARAH, B CRISTO TRANSIT SPECIALIST Unavailable Unavailable SARAH, B CRISTO TRANSIT SPECIALIST Unavailable Unavailable SARAH, B CRISTO TRANSIT SPECIALIST Unavailable Unavailable SARAH, B CRISTO TRANSIT SPECIALIST Unavailable Unavailable SARAH, B CRISTO TRANSIT SPECIALIST Unavailable Unavailable SARAH, B CRISTO TRANSIT SPECIALIST Unavailable Unavailable Hebert, Susannah Wyatt MD Unavailable Unavailable Hebert, Susannah Wyatt MD Unavailable Unavailable Hebert, Susannah Wyatt MD Unavailable Unavailable Hebert, Susannah Wyatt MD Unavailable Unavailable Hebert, Susannah Wyatt MD Unavailable Unavailable Hebert, Susannah Wyatt MD Unavailable Unavailable Hebert, Susannah Wyatt MD Unavailable Unavailable Hebert, Susannah Wyatt MD Unavailable Unavailable Hebert, Susannah Wyatt MD Unavailable Unavailable Hebert, Susannah Wyatt MD Unavailable Unavailable Hebert, Susannah Wyatt MD Unavailable Unavailable Hebert, Susannah Wyatt MD Unavailable Unavailable Hebert, Susannah Wyatt MD Unavailable Unavailable Hebert, Susannah Wyatt MD Unavailable Unavailable Hebert, Susannah Wyatt MD Unavailable Unavailable Hebert, Susannah Wyatt MD Unavailable Unavailable Hebert, Susannah Wyatt MD Unavailable Unavailable Hebert, Susannah Wyatt MD Unavailable Unavailable Hebert, Susannah Wyatt MD Unavailable Unavailable Hebert, Susannah Wyatt MD Unavailable Unavailable Hebert, Susannah Wyatt MD Unavailable Unavailable Hebert, Susannah Wyatt MD Unavailable Unavailable Hebert, Susannah Wyatt MD Unavailable Unavailable Hebert, Susannah Wyatt MD Unavailable Unavailable Hebert, Susannah Wyatt MD Unavailable Unavailable Hebert, Susannah Wyatt MD Unavailable Unavailable Hebert, Susannah Wyatt MD Unavailable Unavailable Hebert, Susannah Wyatt MD Unavailable Unavailable Hebert, Susannah Wyatt MD Unavailable Unavailable Hebert, Susannah Wyatt MD Unavailable Unavailable Hebert, Susannah Wyatt MD Unavailable Unavailable Hebert, Susannah Wyatt MD Unavailable Unavailable Hebert, Susannah Wyatt MD Unavailable Unavailable Hebert, Susannah Wyatt MD Unavailable Unavailable Hebert, Susannah Wyatt MD Unavailable Unavailable Hebert, Susannah Wyatt MD Unavailable Unavailable Hebert, Susannah Wyatt MD Unavailable Unavailable Hebert, Susannah Wyatt MD Unavailable Unavailable Hebert, Susannah Wyatt MD Unavailable Unavailable Hebert, Susannah Wyatt MD Unavailable Unavailable Hebert, Susannah Wyatt MD Unavailable Unavailable Hebert, Susannah Wyatt MD Unavailable Unavailable Hebert, Susannah Wyatt MD Unavailable Unavailable Hebert, Susannah Wyatt MD Unavailable Unavailable Hebert, Susannah Wyatt MD Unavailable Unavailable Hebert, Susannah Wyatt MD Unavailable Unavailable Hebert, Susannah Wyatt MD Unavailable Unavailable Hebert, Susannah Wyatt MD Unavailable Unavailable Hebert, Susannah Wyatt MD Unavailable Unavailable Hebert, Susannah Wyatt MD Unavailable Unavailable MALIN, G EDWARD RPA Unavailable Unavailable MALIN, G EDWARD RPA Unavailable Unavailable MALIN, G EDWARD RPA Unavailable Unavailable MALIN, G EDWARD RPA Unavailable Unavailable MALIN, G EDWARD RPA Unavailable Unavailable MALIN, G EDWARD RPA Unavailable Unavailable MALIN, G EDWARD RPA Unavailable Unavailable MALIN, G EDWARD RPA Unavailable Unavailable MALIN, G EDWARD RPA Unavailable Unavailable MALIN, G EDWARD RPA Unavailable Unavailable MALIN, G EDWARD RPA Unavailable Unavailable MALIN, G EDWARD RPA Unavailable Unavailable MALIN, G EDWARD RPA Unavailable Unavailable MALIN, G EDWARD RPA Unavailable Unavailable MALIN, G EDWARD RPA Unavailable Unavailable MALIN, G EDWARD RPA Unavailable Unavailable MALIN, G EDWARD RPA Unavailable Unavailable MALIN, G EDWARD RPA Unavailable Unavailable MALIN, G EDWARD RPA Unavailable Unavailable MALIN, G EDWARD RPA Unavailable Unavailable MALIN, G EDWARD RPA Unavailable Unavailable MALIN, G EDWARD RPA Unavailable Unavailable MALIN, G EDWARD RPA Unavailable Unavailable MALIN, G EDWARD RPA Unavailable Unavailable MALIN, G EDWARD RPA Unavailable Unavailable MALIN, G EDWARD RPA Unavailable Unavailable MALIN, G EDWARD RPA Unavailable Unavailable MALIN, G EDWARD RPA Unavailable Unavailable MALIN, G EDWARD RPA Unavailable Unavailable MALIN, G EDWARD RPA Unavailable Unavailable MALIN, G EDWARD RPA Unavailable Unavailable MALIN, G EDWARD RPA Unavailable Unavailable MALIN, G EDWARD RPA Unavailable Unavailable MALIN, G EDWARD RPA Unavailable Unavailable MALIN, Efe NEUMANN RPA Unavailable Unavailable Airoldi, Varsha PA Unavailable Unavailable Airoldi, Varsha PA Unavailable Unavailable Airoldi, Varsha PA Unavailable Unavailable Airoldi, Varsha PA Unavailable Unavailable Airoldi, Varsha PA Unavailable Unavailable Airoldi, Varsha PA Unavailable Unavailable Airoldi, Varsha PA Unavailable Unavailable Airoldi, Varsha PA Unavailable Unavailable Airoldi, Varsha PA Unavailable Unavailable Airoldi, Varsha PA Unavailable Unavailable Airoldi, Varsha PA Unavailable Unavailable Airoldi, Varsha PA Unavailable Unavailable Airoldi, Varsha PA Unavailable Unavailable Thu Chapman Unavailable EGORHO, F JACIEL FPMHNP Unavailable Unavailable EGORHO, F JACIEL FPMHNP Unavailable Unavailable EGORHO, F JACIEL FPMHNP Unavailable Unavailable EGORHO, F JACIEL FPMHNP Unavailable Unavailable EGORHO, F JACIEL FPMHNP Unavailable Unavailable EGORHO, F JACIEL FPMHNP Unavailable Unavailable EGORHO, F JACIEL FPMHNP Unavailable Unavailable EGORHO, F JACIEL FPMHNP Unavailable Unavailable Alvarez, M Christopher PA-C Unavailable Unavailable Alvarez, M Christopher PA-C Unavailable Unavailable Alvarez, M Christopher PA-C Unavailable Unavailable Alvarez, M Christopher PA-C Unavailable Unavailable Alvarez, M Christopher PA-C Unavailable Unavailable Alvarez, M Christopher PA-C Unavailable Unavailable Alvarez, M Christopher PA-C Unavailable Unavailable Alvarez, M Christopher PA-C Unavailable Unavailable Alvarez, M Christopher PA-C Unavailable Unavailable Alvarez, M Christopher PA-C Unavailable Unavailable Alvarez, M Christopher PA-C Unavailable Unavailable Alvarez, M Christopher PA-C Unavailable Unavailable Alvarez, M Christopher PA-C Unavailable Unavailable Alvarez, M Christopher PA-C Unavailable Unavailable Lavarez, M Christopher PA-C Unavailable Unavailable Alvarez, M Christopher PA-C Unavailable Unavailable Alvarez, M Christopher PA-C Unavailable Unavailable Alvarez, M Christopher PA-C Unavailable Unavailable Alvarez, M Christopher PA-C Unavailable Unavailable Alvarez, M Christopher PA-C Unavailable Unavailable Alvarez, M Christopher PA-C Unavailable Unavailable Alvarez, M Christopher PA-C Unavailable Unavailable Alvarez, M Christopher PA-C Unavailable Unavailable Alvarez, M Christopher PA-C Unavailable Unavailable Edward AlvarezC Unavailable Unavailable Edward AlvarezC Unavailable Unavailable KHAIRALLAH, RAMZI MD Unavailable Unavailable KHAIRALLAH, RAMZI MD Unavailable Unavailable KHAIRALLAH, RAMZI MD Unavailable Unavailable KHAIRALLAH, RAMZI MD Unavailable Unavailable KHAIRALLAH, RAMZI MD Unavailable Unavailable KHAIRALLAH, RAMZI MD Unavailable Unavailable KHAIRALLAH, RAMZI MD Unavailable Unavailable KHAIRALLAH, RAMZI MD Unavailable Unavailable KHAIRALLAH, RAMZI MD Unavailable Unavailable KHAIRALLAH, RAMZI MD Unavailable Unavailable KHAIRALLAH, RAMZI MD Unavailable Unavailable KHAIRALLAH, RAMZI MD Unavailable Unavailable KHAIRALLAH, RAMZI MD Unavailable Unavailable KHAIRALLAH, RAMZI MD Unavailable Unavailable KHAIRALLAH, RAMZI MD Unavailable Unavailable KHAIRALLAH, RAMZI MD Unavailable Unavailable KHAIRALLAH, RAMZI MD Unavailable Unavailable KHAIRALLAH, RAMZI MD Unavailable Unavailable KHAIRALLAH, RAMZI MD Unavailable Unavailable KHAIRALLAH, RAMZI MD Unavailable Unavailable KHAIRALLAH, RAMZI MD Unavailable Unavailable KHAIRALLAH, RAMZI MD Unavailable Unavailable KHAIRALLAH, RAMZI MD Unavailable Unavailable KHAIRALLAH, RAMZI MD Unavailable Unavailable KHAIRALLAH, RAMZI MD Unavailable Unavailable KHAIRALLAH, RAMZI MD Unavailable Unavailable KHAIRALLAH, RAMZI MD Unavailable Unavailable KHAIRALLAH, RAMZI MD Unavailable Unavailable KHAIRALLAH, RAMZI MD Unavailable Unavailable KHAIRALLAH, RAMZI MD Unavailable Unavailable KHAIRALLAH, RAMZI MD Unavailable Unavailable KHAIRALLAH, RAMZI MD Unavailable Unavailable KHAIRALLAH, RAMZI MD Unavailable Unavailable KHAIRALLAH, RAMZI MD Unavailable Unavailable KHAIRALLAH, RAMZI MD Unavailable Unavailable KHAIRALLAH, RAMZI MD Unavailable Unavailable KHAIRALLAH, RAMZI MD Unavailable Unavailable KHAIRALLAH, RAMZI MD Unavailable Unavailable KHAIRALLAH, RAMZI MD Unavailable Unavailable KHAIRALLAH, RAMZI MD Unavailable Unavailable KHAIRALLAH, RAMZI MD Unavailable Unavailable KHAIRALLAH, RAMZI MD Unavailable Unavailable KHAIRALLAH, RAMZI MD Unavailable Unavailable KHAIRALLAH, RAMZI MD Unavailable Unavailable KHAIRALLAH, RAMZI MD Unavailable Unavailable KHAIRALLAH, RAMZI MD Unavailable Unavailable KHAIRALLAH, RAMZI MD Unavailable Unavailable KHAIRALLAH, RAMZI MD Unavailable Unavailable KHAIRALLAH, RAMZI MD Unavailable Unavailable KHAIRALLAH, RAMZI MD Unavailable Unavailable KHAIRALLAH, RAMZI MD Unavailable Unavailable KHAIRALLAH, RAMZI MD Unavailable Unavailable KHAIRALLAH, RAMZI MD Unavailable Unavailable KHAIRALLAH, RAMZI MD Unavailable Unavailable KHAIRALLAH, RAMZI MD Unavailable Unavailable KHAIRALLAH, RAMZI MD Unavailable Unavailable KHAIRALLAH, RAMZI MD Unavailable Unavailable KHAIRALLAH, RAMZI MD Unavailable Unavailable KHAIRALLAH, RAMZI MD Unavailable Unavailable KHAIRALLAH, RAMZI MD Unavailable Unavailable KHAIRALLAH, RAMZI MD Unavailable Unavailable KHAIRALLAH, RAMZI MD Unavailable Unavailable KHAIRALLAH, RAMZI MD Unavailable Unavailable KHAIRALLAH, RAMZI MD Unavailable Unavailable KHAIRALLAH, RAMZI MD Unavailable Unavailable KHAIRALLAH, RAMZI MD Unavailable Unavailable KHAIRALLAH, RAMZI MD Unavailable Unavailable KHAIRALLAH, RAMZI MD Unavailable Unavailable KHAIRALLAH, RAMZI MD Unavailable Unavailable KHAIRALLAH, RAMZI MD Unavailable Unavailable KHAIRALLAH, RAMZI MD Unavailable Unavailable KHAIRALLAH, RAMZI MD Unavailable Unavailable KHAIRALLAH, RAMZI MD Unavailable Unavailable KHAIRALLAH, RAMZI MD Unavailable Unavailable KHAIRALLAH, RAMZI MD Unavailable Unavailable KHAIRALLAH, RAMZI MD Unavailable Unavailable KHAIRALLAH, RAMZI MD Unavailable Unavailable KHAIRALLAH, RAMZI MD Unavailable Unavailable KHAIRALLAH, RAMZI MD Unavailable Unavailable KHAIRALLAH, RAMZI MD Unavailable Unavailable KHAIRALLAH, RAMZI MD Unavailable Unavailable KHAIRALLAH, RAMZI MD Unavailable Unavailable KHAIRALLAH, RAMZI MD Unavailable Unavailable KHAIRALLAH, RAMZI MD Unavailable Unavailable KHAIRALLAH, RAMZI MD Unavailable Unavailable KHAIRALLAH, RAMZI MD Unavailable Unavailable KHAIRALLAH, RAMZI MD Unavailable Unavailable KHAIRALLAH, RAMZI MD Unavailable Unavailable Re-disclosure Warning The records that you are about to access may contain information from federally-assisted alcohol or drug abuse programs. If such information is present, then the following federally mandated warning applies: This information has been disclosed to you from records protected by federal confidentiality rules (42 CFR part 2). The federal rules prohibit you from making any further disclosure of this information unless further disclosure is expressly permitted by the written consent of the person to whom it pertains or as otherwise permitted by 42 CFR part 2. A general authorization for the release of medical or other information is NOT sufficient for this purpose. The Federal rules restrict any use of the information to criminally investigate or prosecute any alcohol or drug abuse patient.The records that you are about to access may contain highly sensitive health information, the redisclosure of which is protected by Article 27-F of the [facility] Public Health law. If you continue you may have access to information: Regarding HIV / AIDS; Provided by facilities licensed or operated by the [facility] Office of Mental Health; or Provided by the [facility] Office for People With Developmental Disabilities. If such information is present, then the following [facility] mandated warning applies: This information has been disclosed to you from confidential records which are protected by state law. State law prohibits you from making any further disclosure of this information without the specific written consent of the person to whom it pertains, or as otherwise permitted by law. Any unauthorized further disclosure in violation of state law may result in a fine or correction sentence or both. A general authorization for the release of medical or other information is NOT sufficient authorization for further disc losure. Family History Family Member Name Family Member Gender Family Member Status Date o f Status Description Data Source(s) Unknown Female Diagnosis 01/01/2017 12:00:00 AM EDT [facility] ([facility]) Unknown Female Diagnosis 01/01/2017 12:00:00 AM EDT [facility] ([facility]) Unknown Female Diagnosis 01/01/2017 12:00:00 AM EDT [facility] ([facility]) Unknown Female Diagnosis 01/01/2017 12:00:00 AM EDT [facility] ([facility]) Unknown Female Diagnosis 01/01/2017 12:00:00 AM EDT [facility] ([facility]) Encounters Encounter Providers Location Date Indications Data Source(s ) Outpatient Attender: Christ Alvarez PA-C 07/02/2021 06:55:07 PM EDT - 07/02/2021 09:25:45 PM EDT [facility] ([facility]) Outpatient [address], [facility] [id number] 05/27/2021 12:00:00 AM EDT eCW1 ([facility]) [place] [address] [address] 05/20/2021 12:00:00 AM EDT eCW1 ([facility]) Outpatient Attender: NEL MALIN RPA 05/14 06:51:41 PM EDT - 05/14/2021 08:39:02 PM EDT [facility] ([facility] ) [place] [address] [address] 04/29/2021 12:00:00 AM EDT eCW1 ([facility]) [place] [address] [address] 04/29/2021 12:00:00 AM EDT [facility]CW1 ([facility]) [place] [address] [address] 04/29/2021 12:00:00 AM EDT [facility]CW1 ([facility]) [place] [address] [address] 04/22/2021 12:00:00 AM EDT eCW1 ([facility]) OFFICE VISIT, ESTOutpatient Attender: Varsha james 04/06/2021 09:50:00 AM EDT - 04/06/2021 09:50:00 AM EDT Human immunodeficiency virus [HIV] counselingEncounter for oth general cnsl and advice on contraceptionOther sex counselingEncounter for test, result negative [facility] ([facility]) Human immunodeficiency virus [HIV] couns eling Encounter for oth general cnsl and advic e on contraception Other sex counseling Encounter for test, result neg ative [place] [address] [address] 01/19/2021 12:00:00 AM EDT [facility]CW1 ([facility]) [place] [address] [address] 01/05/2021 12:00:00 AM EDT eCW1 ([facility]) Outpatient Attender: Santos Andres MD [facility] Jonas zelaya 12/30/2020 03:00:00 AM EDT - 12/30/2020 03:00:00 AM EDT [facility] ([facility]) Attender: Santos Andres MD 12/30/2020 12:00:00 AM EDT [facility] ([facility]) Outpatient [address] [address] 12/23/2020 12:00:00 AM EDT eCW1 ([facility]) Outpatient Attender: CRISTO SMITH NP Physical Therapy 01:30:00 PM EST [facility] ([facility]) Attender: Tuh Chapman 10/22/2020 12:00:00 AM EST [facility] ([facility]) Extended Individual Psychotherapy - 45 min Attender: Randall Chapman [facility] Mir 10/21/2020 05:00:00 AM EST - 10/21/2020 05:00:00 AM EST [facility] ([facility]) Outpatient Attender: Santos Andres MD [facility] Jonas zelaya 10/07/2020 03:00:00 AM EST - 10/07/2020 03:00:00 AM EST [facility] ([facility]) Attender: Santos Andres MD 10/07/2020 12:00:00 AM EST [facility] ([facility]) Attender: JC LINDER [facility] 09/28/2020 07:05:00 PM EST - 09/28/2020 07:05:00 PM EST [facility] ( [facility]) Outpatient Attender: JACIEL GUTHRIECAROL [facility] J ail 08/31/2020 03:00:00 AM EST - 08/31/2020 03:00:00 AM EST [facility] ([facility]) Attender: JACIEL GALAN 08/31/2020 12:00: 00 AM EST [facility] ([facility]) Attender: Thu Chapman 08/20/2020 12:00:00 AM EST [facility] ([facility]) Extended Individual Psychotherapy - 45 min Attender: Randall jazmin [facility] 08/18/2020 04:00:00 AM EST - 08/18/2020 04:00:00 AM EST [facility] ([facility]) Outpatient Attender: LAISHA VU MD [facility] 07/15/2020 03:30:00 AM EDT - 07/15/2020 03:30:00 AM EDT [facility] ([facility]) Attender: LAISHA VU MD 07/15/2020 12:00:00 A M EDT [facility] ([facility]) Outpatient Attender: CRISTO SMITH NP Physical Therapy 03:45:00 PM EDT [facility] ([facility]) [id number]"Psychotherapy Attender: Thu Ari [facility] 06/24/2020 12:00:00 PM EDT - 06/24/2020 12:00:00 PM EDT [facility] ([facility]) Attender: Thucarlos Chapman 06/24/2020 12:00:00 AM EDT [facility] ([facility]) [id number]"Psychotherapy Attender: Thu Ari [facility] 06/11/2020 04:30:00 AM EDT - 06/11/2020 04:30:00 AM EDT [facility] ([facility]) Attender: Thu Chapman 06/11/2020 12:00:00 AM EDT [facility] ([facility]) Outpatient Attender: NOEMÍ GUTHRIE 06/01/2020 04:31:01 P M EDT [facility] Visit Attender: Edmundo Hebert MD Physical Therapy 2019 02:15:00 PM EDT [facility] ([facility]) [id number]"Psychotherapy Attender: Thucarlos Chapman [facility] 05/20/2020 06:00:00 AM EDT - 05/20/2020 06:00:00 AM EDT [facility] ([facility]) Attender: Thu Ari 05/20/2020 12:00:00 AM EDT [facility] ([facility]) Outpatient Attender: NOEMÍ Sevilla DIRECTOR PATIENT ACCOUNTING FP 05/18/2020 06:33:55 A M EDT [facility] Outpatient Attender: NOEMÍ [place] [facility] 05/17/2020 09:38:01 A M EDT [facility] Functional Status Immunizations Vaccine Date Status Description Data Source(s) COVID-19 VACCINE Pfizer 06/18/2021 12:00:00 AM EDT completed [facility] Vaccine Series Complete: YESThis Data wa s Submitted to [facility] Via [employer]. COVID-19 VACC, MRNA(PFIZER)/PF 05/28/2021 12:00:00 AM EDT completed [facility] COVID-19 VACCINE Pfizer 05/28/2021 12:00:00 AM EDT completed [facility] Vaccine Series Complete: NOThis Data was Submitted to [facility] Via [employer]. Medications Medication Brand Name Start Date Product Form Dose Route Admi nistrative Instructions Pharmacy Instructions Status Indications Reaction Description Data Source(s) 40 mg 06/11/2021 12:00:00 AM EDT capsule,delayed release (DR/EC) 30 TAKE ONE CAPSULE BY MOUTH AT BEDTIME TAKE ONE CAPSULE BY MOUTH AT BEDTIME SOLD: 06/13/2021 [facility] montelukast 10 MG Oral Tablet MONTELUKAST SODIUM 06/11/2021 12:0 0:00 AM EDT tablet 30 TAKE ONE TABLET BY MOUTH EVERY D AY TAKE ONE TABLET BY MOUTH EVERY DAY SOLD: 06/13/2021 [facility] 137 mcg (0.1 %) 05/28/2021 12:00:00 AM EDT aerosol,spray 30 SPRAY ONE SPRAY IN EACH NOSTRIL TWICE A DAY SPRAY ONE SPRAY IN EACH NOSTRIL TWICE A DAY SOLD: 05/28/2021 [facility] 100 mcg/actuation 05/28/2021 12:00:00 AM EDT blister with de vice 60 INHALE ONE PUFF BY MOUTH TWICE A DAY INHALE ONE PUFF BY MOUTH TWICE A DAY SOLD: 06/29/2021 [facility] 100 mcg/actuation 05/28/2021 12:00:00 AM EDT blister with de vice 60 INHALE ONE PUFF BY MOUTH TWICE A DAY INHALE ONE PUFF BY MOUTH TWICE A DAY SOLD: 05/28/2021 [facility] Physical Therapy evaluate and treat UNK 05/27/2021 12:00:00 AM EDT active Physical Therapy evaluate and tr eat eCW1 ([facility]) Azelastine HCl 0.1 % Azelastine HCl 0.1 % 05/27/2021 12:00:00 AM ED T 1.0 {puff_in_each_nostril} active Azelastin e HCl 0.1 % eCW1 ([facility]) 60 ACTUAT Fluticasone propionate 0.1 MG/ ACTUAT Dry Powder Inhaler [Flovent] Flovent Diskus 100 MCG/BLIST Flovent Diskus 100 MCG/BLIST 05/27/2021 12:00:00 AM EDT 1.0 {puff} active Flovent Disku s 100 MCG/BLIST eCW1 ([facility]) 500 mg 05/21/2021 12:00:00 AM EDT tablet 30 TAKE ONE TABLET BY MOUTH TWICE A DAY WITH FOOD TAKE ONE TABLET BY MOUTH TWICE A DAY WITH FOOD SOLD: 021 [facility] 5 mg 05/21/2021 12:00:00 AM EDT tablet 30 TAKE 1 TABLET BY MOUTH ONCE A DAY IN THE EVENING TAKE 1 TABLET BY MOUTH ONCE A DAY IN THE EVENING SOLD: 05/21/2021 [facility] 0.05 % 05/21/2021 12:00:00 AM EDT spray,non-aerosol 30 SPRAY 2 SPRAYS IN EACH NOSTRIL TWO TIMES A DAY NEEDED FOR CONGESTION FOR 3 DAYS SPRAY 2 SPRAYS IN EACH NOSTRIL TWO TIMES A DAY NEEDED FOR CONGESTION FOR 3 DAYS SOLD: 05/21/2021 [facility] 5 mg 05/21/2021 12:00:00 AM EDT tablet 30 TAKE 1 TABLET BY MOUTH ONCE A DAY IN THE EVENING TAKE 1 TABLET BY MOUTH ONCE A DAY IN THE EVENING SOLD: 06/29/2021 [facility] 200 mg 05/21/2021 12:00:00 AM EDT capsule 30 TAKE ONE CAPSULE BY MOUTH THREE TIMES A DAY NEEDED FOR COUGH TAKE ONE CAPSULE BY MOUTH THREE TIMES A DAY NEEDED FOR COUGH SOLD: 05/21/2021 [facility] Rosuvastatin calcium 20 MG Oral Tablet Rosuvastatin Ca lcium 20 MG Rosuvastatin Calcium 20 MG 05/04/2021 12:00:00 AM EDT 1.0 {tablet} active Rosuvastatin Calcium 20 MG eCW1 ([facility]) Rosuvastatin calcium 20 MG Oral Tablet ROSUVASTATIN CALCIUM 05/04/2021 12:00:00 AM EDT tablet 30 TAKE ONE TABLET BY MOUTH JULIENNE TAKE ONE TABLET BY MOUTH EVERY DAY SOLD: 05/05/2021 [facility] Rosuvastatin calcium 20 MG Oral Tablet ROSUVASTATIN CALCIUM 05/04/2021 12:00:00 AM EDT tablet 30 TAKE ONE TABLET BY MOUTH TAKE ONE TABLET BY MOUTH EVERY DAY SOLD: 06/13/2021 [facility] Rosuvastatin calcium 20 MG Oral Tablet Rosuvastatin Ca lcium 20 MG Rosuvastatin Calcium 20 MG 05/04/2021 12:00:00 AM EDT 1.0 {tablet} active Rosuvastatin Calcium 20 MG eCW1 ([facility]) Rosuvastatin calcium 20 MG Oral Tablet Rosuvastatin Ca lcium 20 MG Rosuvastatin Calcium 20 MG 05/04/2021 12:00:00 AM EDT 1.0 {tablet} active Rosuvastatin Calcium 20 MG eCW1 ([facility]) Rosuvastatin calcium 20 MG Oral Tablet Rosuvastatin Ca lcium 20 MG Rosuvastatin Calcium 20 MG 05/04/2021 12:00:00 AM EDT 1.0 {tablet} active Rosuvastatin Calcium 20 MG eCW1 ([facility]) 10 mg 04/29/2021 12:00:00 AM EDT tablet 30 TAKE ONE TABLET BY MOUTH EVERY DAY TAKE ONE TABLET BY MOUTH EVERY DAY SOLD: 06/13/2021 [facility] Ferrous Gluconate 324 (37.5 Fe) MG Ferrous Gluconate 324 (37 .5 Fe) MG 04/29/2021 12:00:00 AM EDT active Ferrous Gluconate 324 (37.5 Fe) MG eCW1 ([facility]) 90 mcg/actuation 04/29/2021 12:00:00 AM EDT aerosol powdr breath activated 1 TAKE 1 PUFF EVERY FOUR HOURS NEEDED TAKE 1 PUFF EVERY FOU R HOURS NEEDED SOLD: 06/13/2021 [facility] 324 mg (37.5 mg iron) 04/29/2021 12:00:00 AM EDT tablet 3 0 TAKE 1 TABLET BY MOUTH WITH WATER OR JUICE BETWEEN MEALS ONCE A DAY WITH MENSES TAKE 1 TABLET BY MOUTH WITH WATER OR JUICE BETWEEN MEALS ONCE A DAY WITH MENSES SOLD: 06/13/2021 [facility] 10 mg 04/29/2021 12:00:00 AM EDT tablet 30 TAKE ONE TABLET BY MOUTH EVERY DAY TAKE ONE TABLET BY MOUTH EVERY DAY SOLD: 05/05/2021 [facility] Ferrous Gluconate 324 (37.5 Fe) MG Ferrous Gluconate 324 (37 .5 Fe) MG 04/29/2021 12:00:00 AM EDT active Ferrous Gluconate 324 (37.5 Fe) MG eCW1 ([facility]) 90 mcg/actuation 04/29/2021 12:00:00 AM EDT aerosol powdr breath activated 1 TAKE 1 PUFF EVERY FOUR HOURS NEEDED TAKE 1 PUFF EVERY FOU R HOURS NEEDED SOLD: 05/05/2021 [facility] Ferrous Gluconate 324 (37.5 Fe) MG Ferrous Gluconate 324 (37 .5 Fe) MG 04/29/2021 12:00:00 AM EDT active Ferrous Gluconate 324 (37.5 Fe) MG eCW1 ([facility]) Ferrous Gluconate 324 (37.5 Fe) MG Ferrous Gluconate 324 (37 .5 Fe) MG 04/29/2021 12:00:00 AM EDT active Ferrous Gluconate 324 (37.5 Fe) MG eCW1 ([facility]) Ferrous Gluconate 324 (37.5 Fe) MG Ferrous Gluconate 324 (37 .5 Fe) MG 04/29/2021 12:00:00 AM EDT active Ferrous Gluconate 324 (37.5 Fe) MG eCW1 ([facility]) Ferrous Gluconate 324 (37.5 Fe) MG Ferrous Gluconate 324 (37 .5 Fe) MG 04/29/2021 12:00:00 AM EDT active Ferrous Gluconate 324 (37.5 Fe) MG eCW1 ([facility]) 324 mg (37.5 mg iron) 04/29/2021 12:00:00 AM EDT tablet 3 0 TAKE 1 TABLET BY MOUTH WITH WATER OR JUICE BETWEEN MEALS ONCE A DAY WITH MENSES TAKE 1 TABLET BY MOUTH WITH WATER OR JUICE BETWEEN MEALS ONCE A DAY WITH MENSES SOLD: 05/05/2021 [facility] montelukast 10 MG Oral Tablet MONTELUKAST SODIUM 04/23/2021 12:0 0:00 AM EDT tablet 30 TAKE 1 TABLET BY MOUTH ONCE DAILY TAKE 1 TABLET BY MOUTH ONCE DAILY SOLD: 04/25/2021 [facility] 1 mg/dose (4 mg/3 mL) 04/22/2021 12:00:00 AM EDT pen injecto r 3 INJECT 1 MG UNDER THE SKIN ONCE WEEKLY INJECT 1 MG UNDER THE SKIN ONCE WEEKLY SOLD: 05/21/2021 [facility] 1 mg/dose (4 mg/3 mL) 04/22/2021 12:00:00 AM EDT pen injecto r 3 INJECT 1 MG UNDER THE SKIN ONCE WEEKLY INJECT 1 MG UNDER THE SKIN ONCE WEEKLY SOLD: 04/25/2021 [facility] 3 ML Insulin Glargine 100 UNT/ML Pen Injector [Basagla r] 100 unit/mL (3 mL) INSULIN GLARGINE,HUM.REC.ANLOG 04/22/2021 12:00:00 AM EDT insulin pen 15 INJECT 24 UNITS UNDER THE SKIN ONCE A DAY MAXIMUM DAILY DOSE = 24 UNITS INJECT 24 UNITS UNDER THE SKIN ONCE A DAY MAXIMUM DAILY DOSE = 24 UNITS SOLD: 04/25/2021 [facility] 40 mg 04/22/2021 12:00:00 AM EDT capsule,delayed release (DR/EC) 30 TAKE ONE CAPSULE BY MOUTH EVERY DAY AT BEDTIME TAKE ONE CAPSULE BY MOUTH EVERY DAY AT BEDTIME SOLD: 04/25/2021 [facility] 40 mg 01/06/2021 12:00:00 AM EDT capsule,delayed release (DR/EC) 30 TAKE ONE CAPSULE BY MOUTH EVERY DAY AT BEDTIME TAKE ONE CAPSULE BY MOUTH EVERY DAY AT BEDTIME SOLD: 04/02/2021 [facility] 40 mg 01/06/2021 12:00:00 AM EDT capsule,delayed release (DR/EC) 30 TAKE ONE CAPSULE BY MOUTH EVERY DAY AT BEDTIME TAKE ONE CAPSULE BY MOUTH EVERY DAY AT BEDTIME SOLD: 01/06/2021 [facility] 40 mg 01/06/2021 12:00:00 AM EDT capsule,delayed release (DR/EC) 30 TAKE ONE CAPSULE BY MOUTH EVERY DAY AT BEDTIME TAKE ONE CAPSULE BY MOUTH EVERY DAY AT BEDTIME SOLD: 02/16/2021 [facility] Prednisone 10 MG Oral Tablet PredniSONE 10 MG PredniSONE 10 MG 12/23/2020 12:00:00 AM EDT active PredniSO NE 10 MG eCW1 ([facility]) levocetirizine dihydrochloride 5 MG Oral Tablet Levocetirizine Dihydrochloride 5 MG Levocetirizine Dihydrochloride 5 MG 12/23/2020 12:00:00 AM EDT 1.0 {tablet_in_the_evening} active Levoceti rizine Dihydrochloride 5 MG eCW1 ([facility]) levocetirizine dihydrochloride 5 MG Oral Tablet LEVOCETIRIZI NE DIHYDROCHLORIDE 12/23/2020 12:00:00 AM EDT tablet 30 TAKE 1 TABLET BY MOUTH ONCE A DAY IN THE EVENING TAKE 1 TABLET BY MOUTH ONCE A DAY IN THE EVENING SOLD: 04/25/2021 [facility] Prednisone 10 MG Oral Tablet predniSONE 10 MG predniSONE 10 MG 12/23/2020 12:00:00 AM EDT suspended predn iSONE 10 MG eCW1 ([facility]) 5 mg 12/23/2020 12:00:00 AM EDT tablet 30 TAKE 1 TABLET BY MOUTH ONCE A DAY IN THE EVENING TAKE 1 TABLET BY MOUTH ONCE A DAY IN THE EVENING SOLD: 02/23/2021 [facility] Prednisone 10 MG Oral Tablet predniSONE 10 MG predniSONE 10 MG 12/23/2020 12:00:00 AM EDT suspended predn iSONE 10 MG eCW1 ([facility]) Prednisone 10 MG Oral Tablet predniSONE 10 MG predniSONE 10 MG 12/23/2020 12:00:00 AM EDT suspended predn iSONE 10 MG eCW1 ([facility]) Prednisone 10 MG Oral Tablet predniSONE 10 MG predniSONE 10 MG 12/23/2020 12:00:00 AM EDT suspended predn iSONE 10 MG eCW1 ([facility]) Prednisone 10 MG Oral Tablet predniSONE 10 MG predniSONE 10 MG 12/23/2020 12:00:00 AM EDT suspended predn iSONE 10 MG eCW1 ([facility]) 10 mg 12/23/2020 12:00:00 AM EDT tablet 19 TAKE 3 TABLETS BY MOUTH DAILY FOR 3 DAYS THEN 2 TABLETS DAILY FOR 3 DAYS THEN 1 TABLET DAILY FOR 4 DAYS TAKE 3 TABLETS BY MOUTH DAILY FOR 3 DAYS THEN 2 TABLETS DAILY FOR 3 DAYS THEN 1 TABLET DAILY FOR 4 DAYS SOLD: 12/27/2020 [facility] 5 mg 12/23/2020 12:00:00 AM EDT tablet 30 TAKE 1 TABLET BY MOUTH ONCE A DAY IN THE EVENING TAKE 1 TABLET BY MOUTH ONCE A DAY IN THE EVENING SOLD: 01/24/2021 [facility] Prednisone 10 MG Oral Tablet predniSONE 10 MG predniSONE 10 MG 12/23/2020 12:00:00 AM EDT suspended predn iSONE 10 MG eCW1 ([facility]) 5 mg 12/23/2020 12:00:00 AM EDT tablet 30 TAKE 1 TABLET BY MOUTH ONCE A DAY IN THE EVENING TAKE 1 TABLET BY MOUTH ONCE A DAY IN THE EVENING SOLD: 04/02/2021 [facility] Prednisone 10 MG Oral Tablet PredniSONE 10 MG PredniSONE 10 MG 12/23/2020 12:00:00 AM EDT active PredniSO NE 10 MG eCW1 ([facility]) levocetirizine dihydrochloride 5 MG Oral Tablet Levocetirizine Dihydrochloride 5 MG Levocetirizine Dihydrochloride 5 MG 12/23/2020 12:00:00 AM EDT 1.0 {tablet_in_the_evening} active Levoceti rizine Dihydrochloride 5 MG eCW1 ([facility]) Prednisone 10 MG Oral Tablet PredniSONE 10 MG PredniSONE 10 MG 12/23/2020 12:00:00 AM EDT active PredniSO NE 10 MG eCW1 ([facility]) 5 mg 12/23/2020 12:00:00 AM EDT tablet 30 TAKE 1 TABLET BY MOUTH ONCE A DAY IN THE EVENING TAKE 1 TABLET BY MOUTH ONCE A DAY IN THE EVENING SOLD: 12/27/2020 [facility] levocetirizine dihydrochloride 5 MG Oral Tablet Levocetirizine Dihydrochloride 5 MG Levocetirizine Dihydrochloride 5 MG 12/23/2020 12:00:00 AM EDT 1.0 {tablet_in_the_evening} active Levoceti rizine Dihydrochloride 5 MG eCW1 ([facility]) 100 unit/mL (3 mL) 11/18/2020 12:00:00 AM EST insulin pen 15 INJECT 24 UNITS UNDER THE SKIN ONCE A DAY MAXIMUM DAILY DOSE = 24 UNITS INJECT 24 UNITS UNDER THE SKIN ONCE A DAY MAXIMUM DAILY DOSE = 24 UNITS SOLD: 12/01/2020 [facility] 60 mg 10/22/2020 12:00:00 AM EST capsule,delayed release (DR/EC) 60 TAKE ONE CAPSULE BY MOUTH TWICE A DAY TAKE ONE CAPSULE BY MOUTH TWICE A DAY SOLD: 10/22/2020 [facility] 60 mg 10/22/2020 12:00:00 AM EST capsule,delayed release (DR/EC) 60 TAKE ONE CAPSULE BY MOUTH TWICE A DAY TAKE ONE CAPSULE BY MOUTH TWICE A DAY SOLD: 01/24/2021 [facility] 60 mg 10/22/2020 12:00:00 AM EST capsule,delayed release (DR/EC) 60 TAKE ONE CAPSULE BY MOUTH TWICE A DAY TAKE ONE CAPSULE BY MOUTH TWICE A DAY SOLD: 12/27/2020 [facility] 60 mg 10/22/2020 12:00:00 AM EST capsule,delayed release (DR/EC) 60 TAKE ONE CAPSULE BY MOUTH TWICE A DAY TAKE ONE CAPSULE BY MOUTH TWICE A DAY SOLD: 12/01/2020 [facility] Hydroxychloroquine Sulfate 200 MG Oral Tablet HYDROXYCHLOROQ UINE SULFATE 09/20/2020 12:00:00 AM EST tablet 60 TAKE 2 TABLETS BY MOUTH DAILY TAKE 2 TABLETS BY MOUTH DAILY SOLD: 09/22/2020 [facility] 5 mg 09/20/2020 12:00:00 AM EST tablet 30 TAKE ONE TABLET BY MOUTH EVERY DAY TAKE ONE TABLET BY MOUTH EVERY DAY SOLD: 09/22/2020 [facility] 31 gauge x 5/16" 09/20/2020 12:00:00 AM EST needle 100 USE WITH INSULIN PEN ONCE DAILY USE WITH INSULIN PEN ONCE DAILY SOLD: 09/22/2020 [facility] montelukast 10 MG Oral Tablet MONTELUKAST SODIUM 08/16/2020 12:0 0:00 AM EST tablet 30 TAKE ONE TABLET BY MOUTH EVERY D AY TAKE ONE TABLET BY MOUTH EVERY DAY SOLD: 12/01/2020 [facility] montelukast 10 MG Oral Tablet MONTELUKAST SODIUM 08/16/2020 12:0 0:00 AM EST tablet 30 TAKE ONE TABLET BY MOUTH EVERY D AY TAKE ONE TABLET BY MOUTH EVERY DAY SOLD: 12/27/2020 [facility] 40 mg 08/16/2020 12:00:00 AM EST capsule,delayed release (DR/EC) 30 TAKE ONE CAPSULE BY MOUTH EVERY DAY AT BEDTIME TAKE ONE CAPSULE BY MOUTH EVERY DAY AT BEDTIME SOLD: 09/13/2020 [facility] 40 mg 08/16/2020 12:00:00 AM EST capsule,delayed release (DR/EC) 30 TAKE ONE CAPSULE BY MOUTH EVERY DAY AT BEDTIME TAKE ONE CAPSULE BY MOUTH EVERY DAY AT BEDTIME SOLD: 08/16/2020 [facility] 40 mg 08/16/2020 12:00:00 AM EST capsule,delayed release (DR/EC) 30 TAKE ONE CAPSULE BY MOUTH EVERY DAY AT BEDTIME TAKE ONE CAPSULE BY MOUTH EVERY DAY AT BEDTIME SOLD: 10/22/2020 [facility] montelukast 10 MG Oral Tablet MONTELUKAST SODIUM 08/16/2020 12:0 0:00 AM EST tablet 30 TAKE ONE TABLET BY MOUTH EVERY D AY TAKE ONE TABLET BY MOUTH EVERY DAY SOLD: 09/13/2020 [facility] montelukast 10 MG Oral Tablet MONTELUKAST SODIUM 08/16/2020 12:0 0:00 AM EST tablet 30 TAKE ONE TABLET BY MOUTH EVERY D AY TAKE ONE TABLET BY MOUTH EVERY DAY SOLD: 10/22/2020 [facility] montelukast 10 MG Oral Tablet MONTELUKAST SODIUM 08/16/2020 12:0 0:00 AM EST tablet 30 TAKE ONE TABLET BY MOUTH EVERY D AY TAKE ONE TABLET BY MOUTH EVERY DAY SOLD: 08/16/2020 [facility] atorvastatin 20 MG Oral Tablet ATORVASTATIN CALCIUM 08/10/2020 1 2:00:00 AM EST tablet 30 TAKE 1 TABLET BY MOUTH ONCE DAILY TAKE 1 TABLET BY MOUTH ONCE DAILY SOLD: 08/16/2020 [facility] 1 mg/dose (2 mg/1.5 mL) 08/10/2020 12:00:00 AM EST pen injec tor 3 INJECT 1 MG UNDER THE SKIN WEEKLY INJECT 1 MG UNDER THE SKIN WEEKLY SOLD: 08/16/2020 [facility] 1 mg/dose (2 mg/1.5 mL) 08/10/2020 12:00:00 AM EST pen injec tor 3 INJECT 1 MG UNDER THE SKIN WEEKLY INJECT 1 MG UNDER THE SKIN WEEKLY SOLD: 01/06/2021 [facility] 1 mg/dose (2 mg/1.5 mL) 08/10/2020 12:00:00 AM EST pen injec tor 3 INJECT 1 MG UNDER THE SKIN WEEKLY INJECT 1 MG UNDER THE SKIN WEEKLY SOLD: 03/15/2021 [facility] 1 mg/dose (2 mg/1.5 mL) 08/10/2020 12:00:00 AM EST pen injec tor 3 INJECT 1 MG UNDER THE SKIN WEEKLY INJECT 1 MG UNDER THE SKIN WEEKLY SOLD: 02/16/2021 [facility] atorvastatin 20 MG Oral Tablet ATORVASTATIN CALCIUM 08/10/2020 1 2:00:00 AM EST tablet 30 TAKE 1 TABLET BY MOUTH ONCE DAILY TAKE 1 TABLET BY MOUTH ONCE DAILY SOLD: 10/22/2020 [facility] 1 mg/dose (2 mg/1.5 mL) 08/10/2020 12:00:00 AM EST pen injec tor 3 INJECT 1 MG UNDER THE SKIN WEEKLY INJECT 1 MG UNDER THE SKIN WEEKLY SOLD: 10/10/2020 [facility] 1 mg/dose (2 mg/1.5 mL) 08/10/2020 12:00:00 AM EST pen injec tor 3 INJECT 1 MG UNDER THE SKIN WEEKLY INJECT 1 MG UNDER THE SKIN WEEKLY SOLD: 11/05/2020 [facility] atorvastatin 20 MG Oral Tablet ATORVASTATIN CALCIUM 08/10/2020 1 2:00:00 AM EST tablet 30 TAKE 1 TABLET BY MOUTH ONCE DAILY TAKE 1 TABLET BY MOUTH ONCE DAILY SOLD: 09/13/2020 [facility] 1 mg/dose (2 mg/1.5 mL) 08/10/2020 12:00:00 AM EST pen injec tor 3 INJECT 1 MG UNDER THE SKIN WEEKLY INJECT 1 MG UNDER THE SKIN WEEKLY SOLD: 12/01/2020 [facility] 1 mg/dose (2 mg/1.5 mL) 08/10/2020 12:00:00 AM EST pen injec tor 3 INJECT 1 MG UNDER THE SKIN WEEKLY INJECT 1 MG UNDER THE SKIN WEEKLY SOLD: 09/13/2020 [facility] Promethazine Hydrochloride 25 MG Oral Tablet PROMETHAZINE HC L 07/24/2020 12:00:00 AM EST tablet 9 TAKE ONE TABLET BY MOUTH THREE TIMES A DAY FOR 3 DAYS TAKE ONE TABLET BY MOUTH THREE TIMES A DAY FOR 3 DAYS SOLD: [facility] 60 mg 07/16/2020 12:00:00 AM EDT capsule,delayed release (DR/EC) 60 TAKE ONE CAPSULE BY MOUTH TWICE A DAY TAKE ONE CAPSULE BY MOUTH TWICE A DAY SOLD: 08/26/2020 [facility] 60 mg 07/16/2020 12:00:00 AM EDT capsule,delayed release (DR/EC) 60 TAKE ONE CAPSULE BY MOUTH TWICE A DAY TAKE ONE CAPSULE BY MOUTH TWICE A DAY SOLD: 07/25/2020 [facility] 60 mg 07/16/2020 12:00:00 AM EDT capsule,delayed release (DR/EC) 60 TAKE ONE CAPSULE BY MOUTH TWICE A DAY TAKE ONE CAPSULE BY MOUTH TWICE A DAY SOLD: 09/24/2020 [facility] duloxetine 60 MG Delayed Release Oral Capsule duloxetine 07/15/2020 12:00:00 AM EDT 60 mg by mouth completed <td ID="MedicationRxNorm_1">548655</td><td ID="MedicationMedication_1">duloxetine</td><td ID="MedicationRoute_1">by mouth</td><td ID="MedicationRouteConcept_1">[id number]</td><td ID="MedicationStartDate_1">07/15/2020</td><td ID="MedicationStopDate_1">01/05/2021</td><td ID="MedicationDosageFrequency_1">twice a day</td><td ID="MedicationDuration_1">30</td><td ID="MedicationFormulaStrength_1">60 mg</td><td ID="MedicationDosageForm_1">capsule,delayed release(DR/EC)</td><td ID="MedicationDosageFormCode_1"></td><td ID="MedicationDosageDescription_1"></td><td ID="MedicationMedicationId_1">[id number]</td><td ID="MedicationAccount_1">[id number]</td><td ID="MedicationNpid_1">[id number]</td><td ID="MedicationAuthorFirstName_1">Santos</td><td ID="MedicationAuthorLastName_1">Andres</td><td ID="MedicationTaxonomyCode_1">[id number]</td><td ID="MedicationTaxonomyDesc_1"> Psychiatry</td><td ID="MedicationPhoneNumber_1">[phone]</td> [facility] ([facility]) 100 unit/mL (3 mL) 07/10/2020 12:00:00 AM EDT insulin pen 15 INJECT 24 UNITS UNDER THE SKIN ONCE A DAY INJECT 24 UNITS UNDER THE SKIN ONCE A DAY SOLD: 09/13/2020 [facility] 100 unit/mL (3 mL) 07/10/2020 12:00:00 AM EDT insulin pen 15 INJECT 24 UNITS UNDER THE SKIN ONCE A DAY INJECT 24 UNITS UNDER THE SKIN ONCE A DAY SOLD: 08/16/2020 [facility] 100 unit/mL (3 mL) 07/10/2020 12:00:00 AM EDT insulin pen 15 INJECT 24 UNITS UNDER THE SKIN ONCE A DAY INJECT 24 UNITS UNDER THE SKIN ONCE A DAY SOLD: 07/13/2020 [facility] 100 unit/mL (3 mL) 07/10/2020 12:00:00 AM EDT insulin pen 15 INJECT 24 UNITS UNDER THE SKIN ONCE A DAY INJECT 24 UNITS UNDER THE SKIN ONCE A DAY SOLD: 10/22/2020 [facility] 10 mg 06/14/2020 12:00:00 AM EDT tablet 9 TAKE ONE TABLET BY MOUTH THREE TIMES A DAY FOR 3 DAYS TAKE ONE TABLET BY MOUTH THREE TIMES A DAY FOR 3 DAYS SOLD: 06/14/2020 [facility] 875-125 mg 06/14/2020 12:00:00 AM EDT tablet 20 TAKE ONE TABLET BY MOUTH TWICE A DAY FOR 10 DAYS TAKE ONE TABLET BY MOUTH TWICE A DAY FOR 10 DAYS SOLD: 06/14/2020 [facility] 10 mg 03/19/2020 12:00:00 AM EDT tablet 30 TAKE ONE TABLET BY MOUTH EVERY DAY TAKE ONE TABLET BY MOUTH EVERY DAY SOLD: 07/13/2020 [facility] 10 mg 03/19/2020 12:00:00 AM EDT tablet 30 TAKE ONE TABLET BY MOUTH EVERY DAY TAKE ONE TABLET BY MOUTH EVERY DAY SOLD: 08/16/2020 [facility] 10 mg 03/19/2020 12:00:00 AM EDT tablet 30 TAKE ONE TABLET BY MOUTH EVERY DAY TAKE ONE TABLET BY MOUTH EVERY DAY SOLD: 09/13/2020 [facility] 10 mg 03/19/2020 12:00:00 AM EDT tablet 30 TAKE ONE TABLET BY MOUTH EVERY DAY TAKE ONE TABLET BY MOUTH EVERY DAY SOLD: 05/07/2020 [facility] 10 mg 03/19/2020 12:00:00 AM EDT tablet 30 TAKE ONE TABLET BY MOUTH EVERY DAY TAKE ONE TABLET BY MOUTH EVERY DAY SOLD: 06/14/2020 [facility] Hydroxychloroquine Sulfate 200 MG Oral Tablet HYDROXYCHLOROQ UINE SULFATE 02/18/2020 12:00:00 AM EDT tablet 60 TAKE 2 TABLETS BY MOUTH DAILY TAKE 2 TABLETS BY MOUTH DAILY SOLD: 08/16/2020 [facility] 5 mg 02/18/2020 12:00:00 AM EDT tablet 30 TAKE ONE TABLET BY MOUTH EVERY DAY TAKE ONE TABLET BY MOUTH EVERY DAY SOLD: 08/16/2020 [facility] Hydroxychloroquine Sulfate 200 MG Oral Tablet HYDROXYCHLOROQ UINE SULFATE 02/18/2020 12:00:00 AM EDT tablet 60 TAKE 2 TABLETS BY MOUTH DAILY TAKE 2 TABLETS BY MOUTH DAILY SOLD: 07/13/2020 [facility] Hydroxychloroquine Sulfate 200 MG Oral Tablet HYDROXYCHLOROQ UINE SULFATE 02/18/2020 12:00:00 AM EDT tablet 60 TAKE 2 TABLETS BY MOUTH DAILY TAKE 2 TABLETS BY MOUTH DAILY SOLD: 05/07/2020 [facility] levocetirizine dihydrochloride 5 MG Oral Tablet LEVOCETIRIZI NE DIHYDROCHLORIDE 02/18/2020 12:00:00 AM EDT tablet 30 TAKE ONE TABLE T BY MOUTH EVERY DAY TAKE ONE TABLET BY MOUTH EVERY DAY SOLD: 05/07/2020 [facility] 5 mg 02/18/2020 12:00:00 AM EDT tablet 30 TAKE ONE TABLET BY MOUTH EVERY DAY TAKE ONE TABLET BY MOUTH EVERY DAY SOLD: 06/14/2020 [facility] Hydroxychloroquine Sulfate 200 MG Oral Tablet HYDROXYCHLOROQ UINE SULFATE 02/18/2020 12:00:00 AM EDT tablet 60 TAKE 2 TABLETS BY MOUTH DAILY TAKE 2 TABLETS BY MOUTH DAILY SOLD: 06/14/2020 [facility] 5 mg 02/18/2020 12:00:00 AM EDT tablet 30 TAKE ONE TABLET BY MOUTH EVERY DAY TAKE ONE TABLET BY MOUTH EVERY DAY SOLD: 07/13/2020 [facility] atorvastatin 20 MG Oral Tablet ATORVASTATIN CALCIUM 02/12/2020 1 2:00:00 AM EDT tablet 30 TAKE 1 TABLET BY MOUTH ONCE DAILY TAKE 1 TABLET BY MOUTH ONCE DAILY SOLD: 06/14/2020 [facility] atorvastatin 20 MG Oral Tablet ATORVASTATIN CALCIUM 02/12/2020 1 2:00:00 AM EDT tablet 30 TAKE 1 TABLET BY MOUTH ONCE DAILY TAKE 1 TABLET BY MOUTH ONCE DAILY SOLD: 05/12/2020 [facility] atorvastatin 20 MG Oral Tablet ATORVASTATIN CALCIUM 02/12/2020 1 2:00:00 AM EDT tablet 30 TAKE 1 TABLET BY MOUTH ONCE DAILY TAKE 1 TABLET BY MOUTH ONCE DAILY SOLD: 07/13/2020 [facility] montelukast 10 MG Oral Tablet MONTELUKAST SODIUM 02/10/2020 12:0 0:00 AM EDT tablet 30 TAKE ONE TABLET BY MOUTH EVERY D AY TAKE ONE TABLET BY MOUTH EVERY DAY SOLD: 07/13/2020 [facility] montelukast 10 MG Oral Tablet MONTELUKAST SODIUM 02/10/2020 12:0 0:00 AM EDT tablet 30 TAKE ONE TABLET BY MOUTH EVERY D AY TAKE ONE TABLET BY MOUTH EVERY DAY SOLD: 06/14/2020 [facility] montelukast 10 MG Oral Tablet MONTELUKAST SODIUM 02/10/2020 12:0 0:00 AM EDT tablet 30 TAKE ONE TABLET BY MOUTH EVERY D AY TAKE ONE TABLET BY MOUTH EVERY DAY SOLD: 05/12/2020 [facility] 60 mg 11/26/2019 12:00:00 AM EDT capsule,delayed release (DR/EC) 60 TAKE 2 CAPSULES BY MOUTH ONCE DAILY TAKE 2 CAPSULES BY MOUTH ONCE DAILY SOLD: 05/07/2020 [facility] 60 mg 11/26/2019 12:00:00 AM EDT capsule,delayed release (DR/EC) 60 TAKE 2 CAPSULES BY MOUTH ONCE DAILY TAKE 2 CAPSULES BY MOUTH ONCE DAILY SOLD: 06/14/2020 [facility] 40 mg 09/04/2019 12:00:00 AM EST capsule,delayed release (DR/EC) 30 TAKE ONE CAPSULE BY MOUTH TWICE A DAY FOR 2 MONTHS THEN TAKE ONE CAPSULE AT BEDTIME FOR 4 MONTHS NEEDED FOR GERD TAKE ONE CAPSULE BY MOUTH TWICE A DAY FO R 2 MONTHS THEN TAKE ONE CAPSULE AT BEDTIME FOR 4 MONTHS NEEDED FOR GERD SOLD: 07/14/2020 [facility] 40 mg 09/04/2019 12:00:00 AM EST capsule,delayed release (DR/EC) 30 TAKE ONE CAPSULE BY MOUTH TWICE A DAY FOR 2 MONTHS THEN TAKE ONE CAPSULE AT BEDTIME FOR 4 MONTHS NEEDED FOR GERD TAKE ONE CAPSULE BY MOUTH TWICE A DAY FO R 2 MONTHS THEN TAKE ONE CAPSULE AT BEDTIME FOR 4 MONTHS NEEDED FOR GERD SOLD: 05/11/2020 [facility] 40 mg 09/04/2019 12:00:00 AM EST capsule,delayed release (DR/EC) 30 TAKE ONE CAPSULE BY MOUTH TWICE A DAY FOR 2 MONTHS THEN TAKE ONE CAPSULE AT BEDTIME FOR 4 MONTHS NEEDED FOR GERD TAKE ONE CAPSULE BY MOUTH TWICE A DAY FO R 2 MONTHS THEN TAKE ONE CAPSULE AT BEDTIME FOR 4 MONTHS NEEDED FOR GERD SOLD: 06/14/2020 [facility] 1 mg/dose (2 mg/1.5 mL) 08/29/2019 12:00:00 AM EST pen injec tor 3 INJECT 1 MG UNDER THE SKIN WEEKLY INJECT 1 MG UNDER THE SKIN WEEKLY SOLD: 06/29/2020 [facility] 1 mg/dose (2 mg/1.5 mL) 08/29/2019 12:00:00 AM EST pen injec tor 3 INJECT 1 MG UNDER THE SKIN WEEKLY INJECT 1 MG UNDER THE SKIN WEEKLY SOLD: 05/07/2020 [facility] 1 mg/dose (2 mg/1.5 mL) 08/29/2019 12:00:00 AM EST pen injec tor 3 INJECT 1 MG UNDER THE SKIN WEEKLY INJECT 1 MG UNDER THE SKIN WEEKLY SOLD: 06/02/2020 [facility] 31 gauge x 5/16" 08/11/2019 12:00:00 AM EST needle 30 USE ONCE DAILY WITH BASAGLAR PEN USE ONCE DAILY WITH BASAGLAR PEN SOLD: 06/14/2020 [facility] 31 gauge x 5/16" 08/11/2019 12:00:00 AM EST needle 30 USE ONCE DAILY WITH BASAGLAR PEN USE ONCE DAILY WITH BASAGLAR PEN SOLD: 05/12/2020 [facility] 31 gauge x 5/16" 08/11/2019 12:00:00 AM EST needle 30 USE ONCE DAILY WITH BASAGLAR PEN USE ONCE DAILY WITH BASAGLAR PEN SOLD: 08/16/2020 [facility] 31 gauge x 5/16" 08/11/2019 12:00:00 AM EST needle 30 USE ONCE DAILY WITH BASAGLAR PEN USE ONCE DAILY WITH BASAGLAR PEN SOLD: 07/13/2020 [facility] duloxetine 60 MG Delayed Release Oral Capsule [Cymbalta] Cym param 12/01/2016 12:00:00 AM EDT 60 mg by mouth completed <td ID="MedicationRxNorm_1">335178</td><td ID="MedicationMedication_1">Cymbalta</td><td ID="MedicationRoute_1">by mouth</td><td ID="MedicationRouteConcept_1">[id number]</td><td ID="MedicationStartDate_1">12/01/2016</td><td ID="MedicationStopDate_1">06/09/2020</td><td ID="MedicationDosageFrequency_1">twice a day</td><td ID="MedicationDuration_1">30</td><td ID="MedicationFormulaStrength_1">60 mg</td><td ID="MedicationDosageForm_1">capsule,delayed release(DR/EC)</td><td ID="MedicationDosageFormCode_1"></td><td ID="MedicationDosageDescription_1"></td><td ID="MedicationMedicationId_1">[id number]</td><td ID="MedicationAccount_1">[id number]</td><td ID="MedicationNpid_1">[id number]</td><td ID="MedicationAuthorFirstName_1">Laisha</td><td ID="MedicationAuthorLastName_1">Ulberg</td><td ID="MedicationTaxonomyCode_1">[id number]</td><td ID="MedicationTaxonomyDesc_1"> Psychiatry</td><td ID="MedicationPhoneNumber_1">[phone]</td> [facility] ([facility]) Insurance Providers Payer name Policy type / Coverage type Policy ID Covered republican ID Covered republican's relationship to bauer Policy Bauer Plan Information MVP MMC [id number] self [id number] Medicaid S [id number] S [id number] Managed Care - MVP P [id number] S [id number] MVP MCDHMO [id number] SP [id number] MVP MCDHMO [id number] SP [id number] 0000 Medicaid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
--- OUTSIDE RECORDS SUMMARY | 2021-07-02 22:11 | CCD ---
Author Author [facility] Organization [facility] Address Unknown Phone Unavailable Care Team Providers Care Director Public Service Name Role Phone Davey Gatese Unavailable PROBLEMS Type Condition ICD9-CM Code EXI10-WM Code Onset Dates Condition S tatus W/U Status Risk SNOMED Code Notes Problem Mixed hyperlipidemia E78.2 Active confirmed 509251797 Problem Type 2 diabetes mellitus without complications E11 .9 Active confirmed 861752896 Problem Mild intermittent asthma with acute exacerbation J 45.21 Active confirmed 090874885 Problem Primary hypertension I10 Active confirmed 36167408 Problem FDC (current) use of insulin Z79.4 Activ e confirmed 156408563 Problem Other iron deficiency anemia D50.8 Active confirme d 93706474 Problem Rheumatoid arthritis, involv ing unspecified site, unspecified whether rheumatoid factor present M06.9 Active confirmed 6989 6004 Problem Gastroesophageal reflux dise ase, unspecified whether esophagitis present K21.9 Active confirmed 735021885 Problem Non-seasonal allergic rhinitis, unspecified trigger J30.89 Active confirmed 80488841 Problem Rheumatoid arthritis of multiple sites w ith negative rheumatoid factor M06.09 Active confirmed 902652226 ALLERGIES Allergen (clinical drug ingredient) Drug/Non Drug Allergy do cumented on EMR Reaction Allergy Type Onset Date Status erythromycin Erythromycin(ND Code:[address]-80) Unknown Drug All ergy Active Latex Latex Unknown Non Drug Allergy Active aspirin Aspirin(ND Code:[address]-93) Unknown Drug Allergy Active ENCOUNTERS from 1977 to 2021-05-04 Encounter Location Date Provider Diagnosis [facility] [address] [phone] [place] [address] Apr, Georgina Gates Gastroesophageal reflux dise ase, unspecified whether esophagitis present K21.9 and Mild intermittent asthma with acute exacerbation J45.21 IMMUNIZATIONS Vaccine Route Administration Date Status Influenza [...] Information RESULTS No Results REASON FOR VISIT refills MEDICAL (GENERAL) HISTORY Type Description Date Medical [...] nerve release, carpral tunnel 2019 Surgical History [place] teeth 1998 Hospitalization History Mental Health suicide attempt 01/2015 Hospitalization History [place], [place], HTN, GERD, Mood disorder 1 09/2018 Hospitalization History Surgery related Goals Section No Information Health Concerns No Information MEDICAL EQUIPMENT No Information MENTAL STATUS No Information FUNCTIONAL STATUS No Information ASSESSMENTS Encounter Date Diagnosis Assessment Notes Treatment Notes Treatm ent Clinical Notes Apr, Gastroesophageal reflux dise ase, unspecified whether esophagitis present (ICD-10 - K21.9) Apr, Mild intermittent asthma with acute exac erbation (ICD-10 - J45.21) PLAN OF TREATMENT Medication Medication Name Sig Start Date Stop Date Rosuvastatin Calcium 20 MG 1 tablet Orally Once a day for 30 day(s) Apr, Next Appt Details Provider Name:Georgina Kody, 2021-08-02 11:3 0:00 AM, [address], , [place], [address], Insurance Providers Payer Name Payer Address Payer Phone Insured Name Patient Relati onship to Insured Coverage Start Date Coverage End Date [facility] [address] [facility] [id number] RAMILA CHEW
--- OUTSIDE RECORDS SUMMARY | 2021-07-02 22:11 | CCD | Continuity of Care Document ---
Author Author [facility] Organization [facility] Address Unknown Phone Unavailable Care Team Providers Care Rn Chemical Dependency Name Role Phone Varsha Kaplan Unavailable Unavailable Allergies, Adverse Reactions, Alerts Substance Reaction Status Criticality sharmin Active No Information azithromycin Hives/Skin Ra sh Active No Information latex Anaphylaxis Active No Information aspirin Nausea/Vomiti ng Active No Information Medications Medication Instructions Dosage Effective Dates (start - stop) Sta tus Comments Invokana 300 mg tablet take 1 tablet by oral route every day before the first meal of the day 300 MG - Active Abilify 15 mg tablet take 1 tablet by oral route every day 15 MG - Active Singulair 10 mg tablet take 1 tablet by oral route every da y in the evening 10 MG - Active atorvastatin 20 mg tablet - Active LISINOPRIL (unknown strength) Not Available - Act kevin PRILOSEC (unknown strength) Not Available - Activ e TOPAMAX (unknown strength) Not Available - Active CYMBALTA (unknown strength) Not Available - Activ e Problems Condition Effective Dates (start - stop) Clinical Status C omments Body mass index (BMI) 30.0-30.9, adult - Body mass index (BMI) 32.0-32.9, adult - Encounter for test, result negative Other sex counseling Encounter for oth general cnsl and advice on contraception Human immunodeficiency virus [HIV] counseling Human immunodeficiency virus [HIV] counseling Transsexualism Endocrine disorder, unspecified Human immunodeficiency virus [HIV] counseling Transsexualism Endocrine disorder, unspecified Posttraumatic stress disorder - Active Polycystic ovaries - Active Migraine - Active Hyperlipidemia - Active Glaucoma - Active Gastroesophageal reflux disease - Active Gallstone - Active Diabetes mellitus - Active Depressive disorder - Active Bipolar disorder - Active Anxiety - Active Procedures Procedure Date URINE TEST OFFICE VISIT, EST HCS Without Test CVR Blood Pressure CVR Med.Svc. Height/Weight CVR Net Developer Programmer.Svc. Contraceptive CVR Net Developer Programmer.Svc. Other CVR Net Developer Programmer.Svc. STI / H Results Test Name Date and Time Measure Units Reference Range Abnormal Flag St atus Comments Panel Description: High Sensitivity Urine Test Fi nal High Sensitivity Urine Test 11:40:42 N egativeLot: [id number]: 07/17/2022 Final Advance Directives Directive Yes / No Effective Date File Name No Information Encounters Encounter Description Practice Location Reason(s) For Visit Diagnose s Date Provider Providers Copied on Encounter OFFICE VISIT, EST [facility], [address] [place] [address], [id number], tel:[phone] RANJAN Kooon Test ( ief complaint) Encounter for test, result neg ativeOther sex counselingEncounter for oth general cnsl and advice on contraceptionHuman immunodeficiency virus [HIV] counseling Shlomo Maddox . [address] [place] [address], [id number], [place]. tel:[phone] Referring Provider: Varsha Keenan, [address] [place] [address], [id number]. tel:[phone] [facility], [address] [place] [address], [id number], tel:[phone] PPNCNY Sturdivant Human immunodeficie ncy virus [HIV] counselingTranssexualismEndocrine disorder, unspecifiedBody mass index (BMI) 30.0-30.9, adult Katz. [address] [place] [address], [address] [place] [address], . tel:[phone] Referring Provider: Lynne Russell, [address] [place] [address], [address] [place] [address]. tel:[phone] [facility], [address] [place] [address], [address] [place] [address], tel:[phone] [facility] No Information Audrey Freeman. [address] [place] [address], [address] [place] [address], . tel:[phone] [facility], [address] [place] [address], [address] [place] [address], tel:[phone] [facility] Human immunodeficie ncy virus [HIV] counselingTranssexualismEndocrine disorder, unspecifiedBody mass index (BMI) 32.0-32.9, adult Zeyad Mccallah. [address] [place] [address], [address] [place] [address], . tel:[phone] Referring Provider: Lydia Diaz , [address] [place] [address], [address] [place] [address]. tel:[phone] Family History Family Member Diagnosis Age At Onset Mother Heart disease Sister Allergies Mother Renal disease 1st degree relative No hx of venous thromboembolism Mother Lupus erythematosus Mother Diabetes mellitus Mother Coronary heart disease before age 65 54 Father Cancer, skin 1st degree relative No hx of osteoporosis 1st degree relative No hx of cancer of breast, colon, endome trium or ovary Immunizations Vaccine Date Status Comments No Information Payers Payer name Insurance type Covered constitution party ID Authorization(s ) [facility] [id number] Social History Type Description Quantity Date Captured Comments Alcohol Use Details Unknown Caffeine Use Details Unknown Tobacco Use Status Moderate cigarette smoker (10-19 cigs/day) Smoking Status Heavy tobacco smoker Smoking Tobacco Use Details Cigarette: No Details Available Cigarette: 10 Cigarettes per day Sex Female Vital Signs Date / Time: Height Weight BMI Pulse Rate Blood Pressure Temperatu re Respiratory Rate Body Surface Area Head Circumference BMI percentile Pulse Ox In haled Ox 11:36 AM 66.50 in 212.40 lbs 33.77 kg/meter(2) 140/8 2 mm[Hg] Chief Complaint And Reason For Visit Most recent encounter only, dated '04/06/2021 09:50'. Test (chief complaint) Reason For Referral Reason For Referral No Information Plan Of Treatment Date Type Action Status Goal Tobacco cessation counseling com pleted Goal Dietary management education, gu idance, and counseling completed Goal Dietary management education, gu idance, and counseling completed History Of Present Illness Encounter Date Complaint History Of Present I llness No Information Functional Status Date Functional Assessment No Information Medications Administered Medication Instructions Dosage Effective Dates (start - stop) Sta tus Comments No Information Instructions Date Instruction Additional Informati on Dietary management education, guidance, and counseling Related to Body mass index (BMI) 30.0-30.9, adult Dietary management education, guidance, and counseling Related to Body mass index (BMI) 32.0-32.9, adult Assessments Type Assessment Date assessment Encounter for test, result neg ative assessment Other sex counseling assessment Encounter for oth general cnsl and advic e on contraception assessment Human immunodeficiency virus [HIV] couns eling Goals Health Concern Goal Type Priority Status Date No Information Medical Equipment Description Device [place] Device Identifier Effective Ab es (start - stop) Status No Information Mental Status Date Cognitive Assessment Orientation - Oriented to ti me, place, person, situation.Normal Orientation Health Concerns Observation Date No Information Concern Status Date No Information Physical Examination Exam Findings Details Neurological Normal Level of consciousne ss - Normal. Orientation - Normal. Psychiatric Normal Orientation - [place] ed to time, place, person & situation.
[2021-07-03] MEDS ORDERED: KETOROLAC 30 MG/ML 1ML VIAL IV ONE (03:00)
[2021-07-03 03:50] LABS: BASO # 0.1 10^3/uL (0.0-0.2); BASO % 0.8 % (0.0-1.0); EOS # 0.2 10^3/uL (0.0-0.5); HEMATOCRIT 35.9 % (36.0-47.0); HEMOGLOBIN 11.6 g/dl (12.0-15.5); LYMPH # 3.5 10^3/uL (1.5-5.0); LYMPH % 35.4 % (24.0-44.0); MEAN CORPUSCULAR HGB CONC 32.3 g/dl (32.0-36.5); MEAN CORPUSCULAR VOLUME 77.4 fl (80.0-96.0); MONO # 0.7 10^3/uL (0.0-0.8); NEUTROPHILS # 5.4 10^3/uL (1.5-8.5); NEUTROPHILS % 54.4 % (36.0-66.0); PLATELET COUNT, AUTOMATED 365 10^3/uL (150-450); RED BLOOD COUNT 4.64 10^6/uL (4.00-5.40)
[2021-07-03 04:22] LABS: BLOOD UREA NITROGEN 24 MG/DL (7-18); C REACTIVE PROTEIN QUANTITATIV 0.49 MG/DL (0.00-0.30); CALCIUM LEVEL 9.5 MG/DL (8.5-10.1); CARBON DIOXIDE LEVEL 23 MEQ/L (21-32); CHLORIDE LEVEL 107 MEQ/L (98-107); CREATININE FOR GFR 0.78 MG/DL (0.55-1.30); GLOMERULAR FILTRATION RATE > 60.0 (>58); GLUCOSE, FASTING 171 MG/DL (70-100); POTASSIUM SERUM 5.1 MEQ/L (3.5-5.1); SODIUM LEVEL 135 MEQ/L (136-145)
--- NOTE | 2021-07-03 05:03 | REPVR ---
PROCEDURE INFORMATION: Exam: CT Temporal Bones Without Contrast. Exam date and time: 07/03/2021 3:03 AM Age: 46 years old Clinical indication: Mass, lump, or swelling; Other: Left mastoid tenderness; Patient HX: PT unable to remove inner earring TECHNIQUE: Imaging protocol: Computed tomography images of the temporal bones without contrast. Radiation optimization: All CT scans at this facility use at least one of these dose optimization techniques: automated exposure control; mA and/or kV adjustment per patient size (includes targeted exams where dose is matched to clinical indication); or iterative reconstruction. COMPARISON: CT Head without contrast 06/24/2017 7:48 PM FINDINGS: On the left, cartilaginous and osseous portions of the left external auditory canal are grossly normal. Mild asymmetric soft tissue swelling in the subcutaneous tissue along the anterior aspect of the mastoid portion of the left temporal bone adjacent to the external auditory canal of uncertain etiology or significance. No evidence of abnormal fluid collection is identified to suggest abscess. Left middle ear is clear. Ossicular chain is intact. Left mastoid air cells are clear. On the right, cartilaginous and osseous portions of the left external auditory canal are grossly normal. Right middle ear is clear. Ossicular chain appears intact. Right mastoid air cells are clear. IMPRESSION: Mild asymmetric soft tissue swelling in the subcutaneous tissue over the anterior aspect of the mastoid portion of the left temporal bone near the lateral aspect of the external auditory canal. This may represent small area of induration. No discrete mass or fluid collection is identified. Correlation with physical examination is recommended. Left temporal bone is otherwise unremarkable. Left mastoid air cells are clear. Right temporal bone is unremarkable. Electronically signed by: Greg Leslie On 07/03/2021 05:02:41 AM
--- OUTSIDE RECORDS SUMMARY | 2021-07-03 05:18 | CCD ---
Author Author [facility] Organization [facility] Address Unknown Phone Unavailable Support Name Relationship Address Phone NO, CONTACT EMERGENCY Next Of Kin [address] [facility] [facility] [address] [place] [address] [place] Next Of Kin [address] [place] [address] [employer] Next Of Kin [address] [employer] [place] [address] Mike Steve Next Of Kin Unknown Unavailable Katherine Witt Next Of Kin [address] [place] [address] BARBARA CABRAL Next Of Kin [address] [place] [address] Unavailable Gagan Myers MD Next Of Kin [address] [place] [address] Eliz Valencia Next Of Kin [address] [place] [address] Laisha Zelaya MD Next Of Kin [address] [place] [address] MIKE GARCIA Next Of Kin [address] [place] [address] MIKE STEVE Next Of Kin [address] [place] [address] NONE, PATIENT PER Next Of Kin - - -, - - - MIKE BRANHAM Next Of Kin [address] [place] [address] UN Next Of Kin Unknown Unavailable UE Next Of Kin Unknown Unavailable MIKE AQUINO Next Of Kin [address] [place] [address] Mike Steve ECON [address] [place] [address] [phone] Care Team Providers Care Surg Tech Name Role Phone Ami VU MD Unavailable Unavailable Ami VU MD Unavailable Unavailable HORACE, Ami INTERIANO MD Unavailable Unavailable ULBERG, Ami INTERIANO MD Unavailable Unavailable ULBERG, Ami INTERIANO MD Unavailable Unavailable ULBERG, Ami INTERIANO MD Unavailable Unavailable ULBERG, Ami INTERIANO MD Unavailable Unavailable ULAmi MORRELL MD Unavailable Unavailable ULBERG, Ami INTERIANO MD Unavailable Unavailable ULBERG, Ami INTERIANO MD Unavailable Unavailable HORACE, Ami INTERIANO MD Unavailable Unavailable ULBERG, Ami INTERIANO MD Unavailable Unavailable ULBERGAmi MD Unavailable Unavailable ULBERGAmi MD Unavailable Unavailable Ami VU MD Unavailable Unavailable Ami VU MD Unavailable Unavailable Katherine Sevilla DIRECTOR OF PRECLINICAL RESEARCH DIRECTOR OF PRECLINICAL RESEARCH Unavailable Unavailable AndresNestor MD Unavailable Unavailable AndresNestor MD Unavailable Unavailable AndresNestor MD Unavailable Unavailable SARAH, B CRISTO FIRE POT OPERATOR Unavailable Unavailable SARAH, B CRISTO FIRE POT OPERATOR Unavailable Unavailable SARAH, B CRISTO FIRE POT OPERATOR Unavailable Unavailable SARAH, B CRISTO FIRE POT OPERATOR Unavailable Unavailable SARAH, B CRISTO FIRE POT OPERATOR Unavailable Unavailable SARAH, B CRISTO FIRE POT OPERATOR Unavailable Unavailable SARAH, B CRISTO FIRE POT OPERATOR Unavailable Unavailable SARAH, B CRISTO FIRE POT OPERATOR Unavailable Unavailable SARAH, B CRISTO FIRE POT OPERATOR Unavailable Unavailable SARAH, B CRISTO FIRE POT OPERATOR Unavailable Unavailable SARAH, B CRISTO FIRE POT OPERATOR Unavailable Unavailable SARAH, B CRISTO FIRE POT OPERATOR Unavailable Unavailable SARAH, B CRISTO FIRE POT OPERATOR Unavailable Unavailable SARAH, B CRISTO FIRE POT OPERATOR Unavailable Unavailable SARAH, B CRISTO FIRE POT OPERATOR Unavailable Unavailable SARAH, B CRISTO FIRE POT OPERATOR Unavailable Unavailable SARAH, B CRISTO FIRE POT OPERATOR Unavailable Unavailable SARAH, B CRISTO FIRE POT OPERATOR Unavailable Unavailable SARAH, B CRISTO FIRE POT OPERATOR Unavailable Unavailable SARAH, B CRISTO FIRE POT OPERATOR Unavailable Unavailable SARAH, B CRISTO FIRE POT OPERATOR Unavailable Unavailable SARAH, B CRISTO FIRE POT OPERATOR Unavailable Unavailable SARAH, B CRISTO FIRE POT OPERATOR Unavailable Unavailable SARAH, B CRISTO FIRE POT OPERATOR Unavailable Unavailable SARAH, B CRISTO FIRE POT OPERATOR Unavailable Unavailable SARAH, B CRISTO FIRE POT OPERATOR Unavailable Unavailable SARAH, B CRISTO FIRE POT OPERATOR Unavailable Unavailable SARAH, B CIRSTO FIRE POT OPERATOR Unavailable Unavailable SARAH, B CRISTO FIRE POT OPERATOR Unavailable Unavailable SARAH, B CRISTO FIRE POT OPERATOR Unavailable Unavailable SARAH, B CRISTO FIRE POT OPERATOR Unavailable Unavailable SARAH, B CRISTO FIRE POT OPERATOR Unavailable Unavailable SARAH, B CRISTO FIRE POT OPERATOR Unavailable Unavailable SARAH, B CRISTO FIRE POT OPERATOR Unavailable Unavailable SARAH, B CRISTO FIRE POT OPERATOR Unavailable Unavailable SARAH, B CRISTO FIRE POT OPERATOR Unavailable Unavailable SARAH, B CRISTO FIRE POT OPERATOR Unavailable Unavailable SARAH, B CRISTO FIRE POT OPERATOR Unavailable Unavailable SARAH, B CRISTO FIRE POT OPERATOR Unavailable Unavailable SARAH, B CRISTO FIRE POT OPERATOR Unavailable Unavailable SARAH, B CRISTO FIRE POT OPERATOR Unavailable Unavailable SARAH, B CRISTO FIRE POT OPERATOR Unavailable Unavailable SARAH, B CRISTO FIRE POT OPERATOR Unavailable Unavailable SARAH, B CRISTO FIRE POT OPERATOR Unavailable Unavailable SARAH, B CRISTO FIRE POT OPERATOR Unavailable Unavailable SARAH, B CRISTO FIRE POT OPERATOR Unavailable Unavailable SARAH, B CRISTO FIRE POT OPERATOR Unavailable Unavailable SARAH, B CRISTO FIRE POT OPERATOR Unavailable Unavailable SARAH, B CRISTO FIRE POT OPERATOR Unavailable Unavailable SARAH, B CRISTO FIRE POT OPERATOR Unavailable Unavailable SARAH, B CRISTO FIRE POT OPERATOR Unavailable Unavailable SARAH, B CRISTO FIRE POT OPERATOR Unavailable Unavailable SARAH, B CRISTO FIRE POT OPERATOR Unavailable Unavailable SARAH, B CRISTO FIRE POT OPERATOR Unavailable Unavailable SARAH, B CRISTO FIRE POT OPERATOR Unavailable Unavailable SARAH, B CRISTO FIRE POT OPERATOR Unavailable Unavailable SARAH, B CRISTO FIRE POT OPERATOR Unavailable Unavailable SARAH, B CRISTO FIRE POT OPERATOR Unavailable Unavailable SARAH, B CRISTO FIRE POT OPERATOR Unavailable Unavailable SARAH, B CRISTO FIRE POT OPERATOR Unavailable Unavailable SARAH, B CRISTO FIRE POT OPERATOR Unavailable Unavailable SARAH, B CRISTO FIRE POT OPERATOR Unavailable Unavailable Hebert, Susannah Wyatt MD Unavailable [...] Unavailable Hebert, Susannah Wyatt MD Unavailable Unavailable Ehbert, Susannah Wyatt MD Unavailable Unavailable Hebert, Susannah [...] Unavailable Unavailable Thu Chapman Unavailable EGORHO, F JAICEL FPMHNP Unavailable Unavailable EGORHO, F JACIEL FPMHNP [...] is protected by Article 27-F of the [facility] Public Health law. If you continue you may have access to information: Regarding HIV / AIDS; Provided by facilities licensed or operated by the [facility] Office of Mental Health; or Provided by the [facility] Office for People With Developmental Disabilities. If such information is present, then the following [facility] mandated warning applies: This information has [...] AM EDT [facility] ([facility]) Encounters Encounter Providers Location Date Indications Data Source(s ) Outpatient Attender: Christ Alvarez PA-C 07/02/2021 06:55:07 PM EDT - 07/02/2021 09:25:45 PM EDT [facility] ([facility]) Outpatient [address] [facility], [facility] [address] 05/27/2021 12:00:00 AM EDT eCW1 ([facility]) Unknown [address] [facility] [address] 05/20/2021 12:00:00 AM EDT eCW1 ([facility]) Outpatient Attender: NEL MALIN RPA 05/14 06:51:41 PM EDT - 05/14/2021 08:39:02 PM EDT [facility] ([facility] ) [place] [address] [facility] [address] 04/29/2021 12:00:00 AM EDT eCW1 ([facility]) [place] [address] [facility] [address] 04/29/2021 12:00:00 AM EDT eCW1 ([facility]) Outpatient [address] [facility] [address] 04/29/2021 12:00:00 AM EDT eCW1 ([facility]) [place] [address] [facility] [address] 04/22/2021 12:00:00 AM EDT eCW1 ([facility]) OFFICE VISIT, ESTOutpatient Attender: Varsha james 04/06/2021 09:50:00 AM EDT - 04/06/2021 09:50:00 AM EDT Human immunodeficiency virus [HIV] counselingEncounter for oth general cnsl and advice on contraceptionOther sex counselingEncounter for test, result negative NextGen ([facility]) Human immunodeficiency virus [HIV] couns eling Encounter for oth general cnsl and advic e on contraception Other sex counseling Encounter for test, result neg ative Unknown [address] [facility] [address] 01/19/2021 12:00:00 AM EDT eCW1 ([facility]) [place] [address] [facility] [address] 01/05/2021 12:00:00 AM EDT eCW1 ([facility]) Outpatient Attender: Santos Andres MD [facility] Jonas zelaya 12/30/2020 03:00:00 AM EDT - 12/30/2020 03:00:00 AM EDT [facility] ([facility]) Attender: Santos Andres MD 12/30/2020 12:00:00 AM EDT [facility] ([facility]) Outpatient [address] [facility], [place] [address] 12/23/2020 12:00:00 AM EDT eCW1 ([facility]) Outpatient Attender: CRISTO SMITH NP Physical Therapy 01:30:00 PM EST [facility] ([facility]) Attender: Thu Chapman 10/22/2020 12:00:00 AM EST [facility] ([facility]) Extended Individual Psychotherapy - 45 min Attender: Randall Chapman [facility] 10/21/2020 05:00:00 AM EST - 10/21/2020 05:00:00 AM EST [facility] ([facility]) Outpatient Attender: Santos Andres MD [facility] Jonas zelaya 10/07/2020 03:00:00 AM EST - 10/07/2020 03:00:00 AM EST [facility] ([facility]) Attender: Santos Andres MD 10/07/2020 12:00:00 AM EST [facility] ([facility]) Attender: JC LINDER MD [facility] 09/28/2020 07:05:00 PM EST - 09/28/2020 07:05:00 PM EST [facility] ( [facility]) Outpatient Attender: JACIEL GUTHRIECAROL [facility] 08/31/2020 03:00:00 AM EST - 08/31/2020 03:00:00 AM EST [facility] ([facility]) Attender: JACIEL GALAN 08/31/2020 12:00: 00 AM EST [facility] ([facility]) Attender: Thu Chapman 08/20/2020 12:00:00 AM EST [facility] ([facility]) Extended Individual Psychotherapy - 45 min Attender: Randall jazmin Ari [facility] 08/18/2020 04:00:00 AM EST - 08/18/2020 04:00:00 AM EST [facility] ([facility]) Outpatient Attender: LAISHA VU MD [facility] 07/15/2020 03:30:00 AM EDT - 07/15/2020 03:30:00 AM EDT [facility] ([facility]) Attender: LAISHA VU MD 07/15/2020 12:00:00 A M EDT [facility] ([facility]) Outpatient Attender: CRISTO SMITH NP Physical Therapy 03:45:00 PM EDT [facility] ([facility]) [id number]"Psychotherapy Attender: Thu Ari [facility] 06/24/2020 12:00:00 PM EDT - 06/24/2020 12:00:00 PM EDT [facility] ([facility]) Attender: Thucarlos Chapman 06/24/2020 12:00:00 AM EDT [facility] ([facility]) [id number]"Psychotherapy Attender: Thu Ari [facility] 06/11/2020 04:30:00 AM EDT - 06/11/2020 04:30:00 AM EDT [facility] ([facility]) Attender: Thu Chapman 06/11/2020 12:00:00 AM EDT [facility] ([facility]) Outpatient Attender: NOEMÍ GUTHRIE 06/01/2020 04:31:01 P M EDT [facility] Office Visit Attender: Edmundo Hebert MD Physical Therapy 2019 02:15:00 PM EDT [facility] ([facility]) [id number]"Psychotherapy Attender: Thucarlos Chapman [facility] 05/20/2020 06:00:00 AM EDT - 05/20/2020 06:00:00 AM EDT [facility] ([facility]) Attender: Thu Ari 05/20/2020 12:00:00 AM EDT [facility] ([facility]) Outpatient Attender: NOEMÍ Sevilla DIRECTOR OF PRECLINICAL RESEARCH FP 05/18/2020 06:33:55 A M EDT [facility] Outpatient Attender: NOEMÍ Sevilla [facility] 05/17/2020 09:38:01 A M EDT [facility] Functional Status Immunizations Vaccine Date Status Description Data Source(s) COVID-19 VACCINE Pfizer 06/18/2021 12:00:00 AM EDT completed [facility] Vaccine Series Complete: YESThis Data wa s Submitted to [facility] Via [employer]. COVID-19 VACC, MRNA(PFIZER)/PF 05/28/2021 12:00:00 AM EDT completed [facility] COVID-19 VACCINE Pfizer 05/28/2021 12:00:00 AM EDT completed [facility] Vaccine Series Complete: NOThis Data was Submitted to [facility] [employer]. Medications Medication Brand Name Start Date Product [...] Physical Therapy evaluate and tr eat eCW1 ([facility]) Azelastine HCl 0.1 % Azelastine HCl 0.1 % 05/27/2021 12:00:00 AM ED T 1.0 {puff_in_each_nostril} active Azelastin e HCl 0.1 % eCW1 ([facility]) 60 ACTUAT Fluticasone propionate 0.1 MG/ ACTUAT Dry Powder Inhaler [Flovent] Flovent Diskus 100 MCG/BLIST Flovent Diskus 100 MCG/BLIST 05/27/2021 12:00:00 AM EDT 1.0 {puff} active Flovent Disku s 100 MCG/BLIST eCW1 ([facility]) 500 mg 05/21/2021 12:00:00 AM EDT tablet [...] {tablet} active Rosuvastatin Calcium 20 MG eCW1 ([facility]) Rosuvastatin calcium 20 MG Oral Tablet ROSUVASTATIN [...] {tablet} active Rosuvastatin Calcium 20 MG eCW1 ([facility]) Rosuvastatin calcium 20 MG Oral Tablet Rosuvastatin Ca lcium 20 MG Rosuvastatin Calcium 20 MG 05/04/2021 12:00:00 AM EDT 1.0 {tablet} active Rosuvastatin Calcium 20 MG eCW1 ([facility]) Rosuvastatin calcium 20 MG Oral Tablet Rosuvastatin Ca lcium 20 MG Rosuvastatin Calcium 20 MG 05/04/2021 12:00:00 AM EDT 1.0 {tablet} active Rosuvastatin Calcium 20 MG eCW1 ([facility]) 10 mg 04/29/2021 12:00:00 AM EDT tablet 30 TAKE ONE TABLET BY MOUTH EVERY DAY TAKE ONE TABLET BY MOUTH EVERY DAY SOLD: 06/13/2021 [facility] Ferrous Gluconate 324 (37.5 Fe) MG Ferrous Gluconate 324 (37 .5 Fe) MG 04/29/2021 12:00:00 AM EDT active Ferrous Gluconate 324 (37.5 Fe) MG eCW1 ([facility]) 90 mcg/actuation 04/29/2021 12:00:00 AM EDT aerosol [...] Ferrous Gluconate 324 (37.5 Fe) MG eCW1 ([facility]) 90 mcg/actuation 04/29/2021 12:00:00 AM EDT aerosol powdr breath activated 1 TAKE 1 PUFF EVERY FOUR HOURS NEEDED TAKE 1 PUFF EVERY FOU R HOURS NEEDED SOLD: 05/05/2021 [facility] Ferrous Gluconate 324 (37.5 Fe) MG Ferrous Gluconate 324 (37 .5 Fe) MG 04/29/2021 12:00:00 AM EDT active Ferrous Gluconate 324 (37.5 Fe) MG eCW1 ([facility]) Ferrous Gluconate 324 (37.5 Fe) MG Ferrous Gluconate 324 (37 .5 Fe) MG 04/29/2021 12:00:00 AM EDT active Ferrous Gluconate 324 (37.5 Fe) MG eCW1 ([facility]) Ferrous Gluconate 324 (37.5 Fe) MG Ferrous Gluconate 324 (37 .5 Fe) MG 04/29/2021 12:00:00 AM EDT active Ferrous Gluconate 324 (37.5 Fe) MG eCW1 ([facility]) Ferrous Gluconate 324 (37.5 Fe) MG Ferrous Gluconate 324 (37 .5 Fe) MG 04/29/2021 12:00:00 AM EDT active Ferrous Gluconate 324 (37.5 Fe) MG eCW1 ([facility]) 324 mg (37.5 mg iron) 04/29/2021 12:00:00 [...] EDT active PredniSO NE 10 MG eCW1 ([facility]) levocetirizine dihydrochloride 5 MG Oral Tablet Levocetirizine Dihydrochloride 5 MG Levocetirizine Dihydrochloride 5 MG 12/23/2020 12:00:00 AM EDT 1.0 {tablet_in_the_evening} active Levoceti rizine Dihydrochloride 5 MG eCW1 ([facility]) levocetirizine dihydrochloride 5 MG Oral Tablet LEVOCETIRIZI NE DIHYDROCHLORIDE 12/23/2020 12:00:00 AM EDT tablet 30 TAKE 1 TABLET BY MOUTH ONCE A DAY IN THE EVENING TAKE 1 TABLET BY MOUTH ONCE A DAY IN THE EVENING SOLD: 04/25/2021 [facility] Prednisone 10 MG Oral Tablet predniSONE 10 MG predniSONE 10 MG 12/23/2020 12:00:00 AM EDT suspended predn iSONE 10 MG eCW1 ([facility]) 5 mg 12/23/2020 12:00:00 AM EDT tablet 30 TAKE 1 TABLET BY MOUTH ONCE A DAY IN THE EVENING TAKE 1 TABLET BY MOUTH ONCE A DAY IN THE EVENING SOLD: 02/23/2021 [facility] Prednisone 10 MG Oral Tablet predniSONE 10 MG predniSONE 10 MG 12/23/2020 12:00:00 AM EDT suspended predn iSONE 10 MG eCW1 ([facility]) Prednisone 10 MG Oral Tablet predniSONE 10 MG predniSONE 10 MG 12/23/2020 12:00:00 AM EDT suspended predn iSONE 10 MG eCW1 ([facility]) Prednisone 10 MG Oral Tablet predniSONE 10 MG predniSONE 10 MG 12/23/2020 12:00:00 AM EDT suspended predn iSONE 10 MG eCW1 ([facility]) Prednisone 10 MG Oral Tablet predniSONE 10 MG predniSONE 10 MG 12/23/2020 12:00:00 AM EDT suspended predn iSONE 10 MG eCW1 ([facility]) 10 mg 12/23/2020 12:00:00 AM EDT tablet [...] EDT suspended predn iSONE 10 MG eCW1 ([facility]) 5 mg 12/23/2020 12:00:00 AM EDT tablet 30 TAKE 1 TABLET BY MOUTH ONCE A DAY IN THE EVENING TAKE 1 TABLET BY MOUTH ONCE A DAY IN THE EVENING SOLD: 04/02/2021 [facility] Prednisone 10 MG Oral Tablet PredniSONE 10 MG PredniSONE 10 MG 12/23/2020 12:00:00 AM EDT active PredniSO NE 10 MG eCW1 ([facility]) levocetirizine dihydrochloride 5 MG Oral Tablet Levocetirizine Dihydrochloride 5 MG Levocetirizine Dihydrochloride 5 MG 12/23/2020 12:00:00 AM EDT 1.0 {tablet_in_the_evening} active Levoceti rizine Dihydrochloride 5 MG eCW1 ([facility]) Prednisone 10 MG Oral Tablet PredniSONE 10 MG PredniSONE 10 MG 12/23/2020 12:00:00 AM EDT active PredniSO NE 10 MG eCW1 ([facility]) 5 mg 12/23/2020 12:00:00 AM EDT tablet 30 TAKE 1 TABLET BY MOUTH ONCE A DAY IN THE EVENING TAKE 1 TABLET BY MOUTH ONCE A DAY IN THE EVENING SOLD: 12/27/2020 [facility] levocetirizine dihydrochloride 5 MG Oral Tablet Levocetirizine Dihydrochloride 5 MG Levocetirizine Dihydrochloride 5 MG 12/23/2020 12:00:00 AM EDT 1.0 {tablet_in_the_evening} active Levoceti rizine Dihydrochloride 5 MG eCW1 ([facility]) 100 unit/mL (3 mL) 11/18/2020 12:00:00 AM [...] EDT 60 mg by mouth completed <td ID="MedicationRxNorm_1">[id number]</td><td ID="MedicationMedication_1">duloxetine</td><td ID="MedicationRoute_1">by mouth</td><td ID="MedicationRouteConcept_1">[id number]</td><td ID="MedicationStartDate_1">07/15/2020</td><td ID="MedicationStopDate_1">01/05/2021</td><td ID="MedicationDosageFrequency_1">twice a day</td><td ID="MedicationDuration_1">30</td><td ID="MedicationFormulaStrength_1">60 mg</td><td ID="MedicationDosageForm_1">capsule,delayed release(DR/EC)</td><td ID="MedicationDosageFormCode_1"></td><td ID="MedicationDosageDescription_1"></td><td ID="MedicationMedicationId_1">[id number]</td><td ID="MedicationAccount_1">[id number]</td><td ID="MedicationNpid_1">[id number]</td><td ID="MedicationAuthorFirstName_1">Santos</td><td ID="MedicationAuthorLastName_1">Andres</td><td ID="MedicationTaxonomyCode_1">[id number]</td><td ID="MedicationTaxonomyDesc_1"> Psychiatry</td><td ID="MedicationPhoneNumber_1">[phone]</td> [facility] ([facility]) 100 unit/mL (3 mL) 07/10/2020 12:00:00 AM [...] TABLET BY MOUTH EVERY DAY SOLD: 07/13/2020 [facility] montelukast 10 MG Oral Tablet [...] EDT 60 mg by mouth completed <td ID="MedicationRxNorm_1">[id number]</td><td ID="MedicationMedication_1">Cymbalta</td><td ID="MedicationRoute_1">by mouth</td><td ID="MedicationRouteConcept_1">P24623</td><td ID="MedicationStartDate_1">12/01/2016</td><td ID="MedicationStopDate_1">06/09/2020</td><td ID="MedicationDosageFrequency_1">twice a day</td><td ID="MedicationDuration_1">30</td><td ID="MedicationFormulaStrength_1">60 mg</td><td ID="MedicationDosageForm_1">capsule,delayed release(DR/EC)</td><td ID="MedicationDosageFormCode_1"></td><td ID="MedicationDosageDescription_1"></td><td ID="MedicationMedicationId_1">[id number]</td><td ID="MedicationAccount_1">[id number]</td><td ID="MedicationNpid_1">[id number]</td><td ID="MedicationAuthorFirstName_1">Laisha</td><td ID="MedicationAuthorLastName_1">Ulberg</td><td ID="MedicationTaxonomyCode_1">[id number]</td><td ID="MedicationTaxonomyDesc_1"> Psychiatry</td><td ID="MedicationPhoneNumber_1">[phone]</td> [facility] ([facility]) Insurance Providers Payer name Policy type / Coverage type Policy ID Covered democrat ID Covered democrat's relationship to bauer Policy Bauer Plan Information MVP MMC [id number] self [id number] Medicaid S [id number] S [id number] Managed Care - MVP P [id number] S [id number] MVP MCDHMO [id number] SP [id number] MVP MCDHMO [id number] SP [id number] Medicaid S [id number] S [id number] Managed Care - MVP P [id number] S [id number] MVP EXC [id number] S [id number] Medicaid S [id number] S [id number] Managed Care - MVP P [id number] S [id number] P Health Care Commercial Insurance Co. [id number] Self [id number] P HEALTH CARE O [id number] S [id number] [facility] PLAN MCDHMO [id number] SP [id number] Medicaid S [id number] S [id number] Managed Care - MVP P [id number] S [id number] NO FAULT [id number] SP [id number] NO FAULT [id number] SP [id number] NO FAULT [id number] SP [id number] NO FAULT O [id number] S [id number] [facility] [id number] S [id number] MVP MCDHMO [id number] SP [id number] FARZANA [id number] SP [id number] P HEALTH CARE [id number] SP [id number] MVP MCDHMO [id number] SP [id number] [place] [id number] SP [id number] MEDICAID [id number] SP [id number] MEDICAID [id number] S [id number] SELF PAY S MVP Health Plans Commercial [id number] Self [id number] P HEALTH CARE O [id number] S [id number] MVP MCDHMO [id number] SP [id number] [facility] [id number] SP [id number] Problems, Conditions, and Diagnoses Code Display Name Description Problem Type Effective Dates Data Source(s) M54.42 [id number] Acute midline low back pain with left-shea ed sciatica Problem 05/27/2021 12:00:00 AM EDT eCW1 ([facility]) J45.41 [id number] Moderate persistent asthma with acute exacerbation Problem 05/27/2021 12:00:00 AM EDT eCW1 ([facility]) I10 [id number] Primary hypertension Problem 04/29/2021 12:0 0:00 AM EDT eCW1 ([facility]) D50.8 94965441 Other iron deficiency anemia Problem 021 12:00:00 AM EDT eCW1 ([facility]) M06.09 893582561 Rheumatoid arthritis of multiple sites with negative rheumatoid factor Problem 04/29/2021 12:00:00 AM EDT eCW1 ([facility]) F43.12 Post-traumatic stress disorder, chronic Post-traumatic stress disorder, chronic Condition 12/30/2020 12:00:00 AM EDT [facility] ([facility]) 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 Condition 12/30/2020 12:00:00 AM EDT [facility] ([facility]) F33.0 Major depressive disorder, recurrent, mi ld Major Depressive Disorder, Recurrent episode, Mild Condition 12/30/2020 12:00:00 AM EDT [facility] ([facility]) J45.21 [id number] Mild intermittent asthma with acute exace rbation Problem 12/23/2020 12:00:00 AM EDT eCW1 ([facility]) K21.9 869760508 Gastroesophageal ref lux disease, unspecified whether esophagitis present Problem 12/23/2020 12:00:00 AM EDT eCW1 ([facility]) J30.89 68502842 Non-seasonal allergic rhinitis, unspecifi ed trigger Problem 12/23/2020 12:00:00 AM EDT eCW1 ([facility]) M06.9 76197642 Rheumatoid arthritis , involving unspecified site, unspecified whether rheumatoid factor present Problem 12/23/2020 12:00:00 AM EDT eCW1 ([facility]) E11.9 996536287 Type 2 diabetes mellitus without complica tions Problem 12/23/2020 12:00:00 AM EDT eCW1 ([facility]) E78.2 705940668 Mixed hyperlipidemia Problem 12/23/2020 12:0 0:00 AM EDT eCW1 ([facility]) 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 STI / H 04/06/2021 12:00:00 AM EDT - 04/06/2021 12:00:00 AM EDT [facility] ([facility]) CVR Panel Saw Operator.Svc. Other 04/06/2021 12:00:00 AM EDT - 2020 12:00:00 AM EDT [facility] ([facility]) CVR Panel Saw Operator.Svc. Contraceptive 04/06/2021 12 :00:00 AM EDT - 04/06/2021 12:00:00 AM EDT [facility] ([facility]) CVR Med.Svc. Height/Weight 04/06/2021 12 :00:00 AM EDT - 04/06/2021 12:00:00 AM EDT [facility] ([facility]) CVR Blood Pressure 04/06/2021 12:00:00 AM EDT - 2020 12:00:00 AM EDT [facility] ([facility]) HCS Without Test 04/06/2021 12:00:00 AM EDT - 04/06/20 12:00:00 AM EDT [facility] ([facility]) OFFICE VISIT, EST 04/06/2021 12:00:00 AM EDT - 021 12:00:00 AM EDT [facility] ([facility]) URINE TEST 04/06/2021 12:00:00 AM EDT - 04/06/2021 12:00:00 AM EDT [facility] ([facility]) MHC Telemed E/M Lvl 3--Est pt 12/30/2020 12:00:00 AM EDT - 12/30/2020 12:00:00 AM EDT [facility] ([facility]) MHC Telemed E/M Lvl 3--Est pt 12/30/2020 12:00:00 AM E DT [facility] ([facility]) Extended Individual Psychotherapy - 45 min 10/22/2020 12:00:00 AM EST - 10/22/2020 12:00:00 AM EST [facility] ([facility]) Extended Individual Psychotherapy - 45 min 12:00:00 AM EST [facility] ([facility]) MHC Telemed E/M Lvl 3--Est pt 10/07/2020 12:00:00 AM EST - 10/07/2020 12:00:00 AM EST [facility] ([facility]) MHC Telemed E/M Lvl 3--Est pt 10/07/2020 12:00:[address] [facility] ([facility]) OFFICE OUTPATIENT VISIT 15 MINUTES 08/31 12:00:00 AM EST - 08/31/2020 12:00:00 AM EST [facility] ([facility]) OFFICE OUTPATIENT VISIT 15 MINUTES 08/31/2020 12:00:00 AM EST [facility] ([facility]) Extended Individual Psychotherapy - 45 min 08/20/2020 12:00:00 AM EST - 08/20/2020 12:00:00 AM EST [facility] ([facility]) Extended Individual Psychotherapy - 45 min 12:00:00 AM EST [facility] ([facility]) MHC Telemed E/M Lvl 3--Est pt 07/15/2020 12:00:00 AM EDT - 07/15/2020 12:00:00 AM EDT [facility] ([facility]) MHC Telemed E/M Lvl 3--Est pt 07/15/2020 12:00:00 AM E DT [facility] ([facility]) [id number]"Psychotherapy 0 12:00:00 AM EDT - 06/24/2020 12:00:00 AM EDT [facility] ([facility]) [id number]"Psychotherapy 06/24/2020 12:00:00 AM EDT [facility] ([facility]) [id number]"Psychotherapy 0 12:00:00 AM EDT - 06/11/2020 12:00:00 AM EDT [facility] ([facility]) [id number]"Psychotherapy 06/11/2020 12:00:00 AM EDT [facility] ([facility]) [id number]"Psychotherapy 0 12:00:00 AM EDT - 05/20/2020 12:00:00 AM EDT [facility] ([facility]) [id number]"Psychotherapy 05/20/2020 12:00:00 AM EDT [facility] ([facility]) Endoscopy Wrist W/Release Transverse Carpal Ligament 05/18/2020 12:00:00 AM EDT [facility] ([facility]) Neuroplasty/Transposition, Ulnar Nerve AT Elbow 2019 12:00:00 AM EDT [facility] ([facility]) Results ID Date Data Source [id number] 05/14/2021 10:45:00 PM EDT [facility] Name Value Range Interpretation Code Description Data Haley rce(s) Supporting Document(s) SARS-CoV-2 RNA Resp Ql LYNN+probe NOT DETECTED [facility] This lab was ordered by ARELIS cowart and reported by ARELIS Shipman. ID Date Data Source RHEUMATOID FACTOR QUANT 04/29/2021 12:00:00 AM EDT eCW1 ([facility]) Name Value Range Interpretation Code Description Data Haley rce(s) Supporting Document(s) < 10.0 <15.0 RHEUMATOID FACTOR QUANT eCW1 ( [facility]) ID Date Data Source HEPATITIS C ANTIBODY INDEX 04/29/2021 12:00:00 AM EDT eCW1 ( [facility]) Name Value Range Interpretation Code Description Data Haley rce(s) Supporting Document(s) 0.1 <0.8 HEPATITIS C VIRUS FARHAD INDEX eC W1 ([facility]) ID Date Data Source ERYTHROCYTE SEDIMENTATION RATE 04/29/2021 12:00:00 AM EDT eC W1 ([facility]) Name Value Range Interpretation Code Description Data Haley rce(s) Supporting Document(s) 28 0-20 ERYTHROCYTE SEDIMENTATION RATE eCW1 ([facility]) ID Date Data Source HEPATITIS B SURFACE ANTIGEN 04/29/2021 12:00:00 AM EDT eCW1 ([facility]) Name Value Range Interpretation Code Description Data Haley rce(s) Supporting Document(s) NEGATIVE NEGATIVE HEPATITIS B SURFACE ANTIG EN eCW1 ([facility]) ID Date Data Source C REACTIVE PROTEIN QUANTITATIV (At [facility]) 04/29/2021 12:00 :00 AM EDT eCW1 ([facility]) Name Value Range Interpretation Code Description Data Haley rce(s) Supporting Document(s) 0.64 0.00-0.30 C REACTIVE PROTEIN QUANTI TATIV eCW1 ([facility]) ID Date Data Source Comprehensive Metabolic Profile (CMP) 04/29/2021 12:00:00 AM EDT eCW1 ([facility]) Name Value Range Interpretation Code Description Data Haley rce(s) Supporting Document(s) 232 70-100 GLUCOSE, FASTING eCW1 ([facility]) 15 7-18 BLOOD UREA NITROGEN eCW1 ([facility]) 0.79 0.55-1.30 CREATININE FOR GFR eCW1 ([facility]) > 60.0 >58 GLOMERULAR FILTRATION RATE eCW 1 ([facility]) 135 136-145 SODIUM LEVEL eCW1 ([facility]) 104 98-107 CHLORIDE LEVEL eCW1 ([facility]) 26 21-32 CARBON DIOXIDE LEVEL eCW1 ([facility]) 4.6 3.5-5.1 POTASSIUM SERUM eCW1 ([facility]) 8.5 8.5-10.1 CALCIUM LEVEL eCW1 ([facility]) 22 12-78 ALT/SGPT eCW1 ([facility]) 15 7-37 AST/SGOT eCW1 ([facility]) 0.4 0.2-1.0 BILIRUBIN,TOTAL eCW1 ([facility]) 72 45-117 ALKALINE PHOSPHATASE eCW1 ([facility]) 6.7 6.4-8.2 TOTAL PROTEIN eCW1 ([facility]) 3.1 3.2-5.2 ALBUMIN eCW1 ([facility]) 0.9 1.2-2.2 ALBUMIN/GLOBULIN RATIO eCW1 ([facility]) ID Date Data Source CBC with Differential 04/29/2021 12:00:00 AM EDT eCW1 ([facility]) Name Value Range Interpretation Code Description Data Haley rce(s) Supporting Document(s) 6.5 4.0-10.0 WHITE BLOOD COUNT eCW1 ([facility]) 4.64 4.00-5.40 RED BLOOD COUNT eCW1 ([facility]) 80.0 80.0-96.0 MEAN CORPUSCULAR VOLUME e CW1 ([facility]) 11.7 12.0-15.5 HEMOGLOBIN eCW1 ([facility]) 37.1 36.0-47.0 HEMATOCRIT eCW1 ([facility]) 13.1 11.5-14.5 RED CELL DISTRIBUTION WID TH eCW1 ([facility]) 31.5 32.0-36.5 MEAN CORPUSCULAR HGB CONC eCW1 ([facility]) 25.2 27.0-33.0 MEAN CORPUSCULAR HEMOGLOB IN eCW1 ([facility]) 37.0 24.0-44.0 LYMPH % eCW1 ([facility]) 51.6 36.0-66.0 NEUTROPHILS % eCW1 ([facility]) 366 150-450 PLATELET COUNT, AUTOMATED eCW1 ([facility]) 2.0 0.0-3.0 EOS % eCW1 ([facility]) 0.9 0.0-1.0 BASO % eCW1 ([facility]) 7.9 2.0-8.0 MONO % eCW1 ([facility]) 2.4 1.5-5.0 LYMPH # eCW1 ([facility]) 3.3 1.5-8.5 NEUTROPHILS # eCW1 ([facility]) 0.5 0.0-0.8 MONO # eCW1 ([facility]) 0.1 0.0-0.2 BASO # eCW1 ([facility]) 0.1 0.0-0.5 EOS # eCW1 ([facility]) ID Date Data Source [id number] 04/06/2021 11:40:42 AM EDT [facility] Name Value Range Interpretation Code Description Data Haley rce(s) Supporting Document(s) NegativeLot: [id number]: 07/17/2022 High Sensitivity Urine Test [facility] ID Date Data Source [id number] 10/26/2020 02:45:00 PM EST [facility] ([facility] Name Value Range Interpretation Code Description Data Haley rce(s) Supporting Document(s) Creatinine [Mass/volume] in Urine 150.0 mg/dL [facility] ([facility]) Microalbumin [Mass/volume] in Urine 179.0 mg/L [facility] ([facility] ) Microalbumin/Creatinine [Mass Ratio] in Urine 119.3 MCG/MG 0.0-30.0 [facility] ([facility] ) THE [employer] STATES THAT MICROALBUMINURIA IS PRESENT IF THE MICROALBUMIN/CREATININE RATIO EXCEEDS 30 MCG/MG. THE THRESHOLD FOR CLINICAL ALBUMINURIA IS REACHED AT 300 MCG/MG. THE CLASSIFICATION OF A PATIENT SHOULD BE BASED UPON AT LEAST 2 OF 3 ABNORMAL RESULTS ON SPECIMENS COLLECTED WITHIN A 3 TO 6 MONTH TIME FRAME. ID Date Data Source [id number] 10/26/2020 02:34:00 PM EST [facility] ([facility]) Name Value Range Interpretation Code Description Data Haley rce(s) Supporting Document(s) Glucose [Mass/volume] in Serum or Plasma 206 [facility] ([facility]) Hemoglobin A1c/Hemoglobin.total in Blood Laboratory test result [facility] ([facility]) ID Date Data Source [id number] 07/09/2020 04:17:00 PM EDT [facility] ([facility]) Name Value Range Interpretation Code Description Data Haley rce(s) Supporting Document(s) Hemoglobin A1c/Hemoglobin.total in Blood 6.6 [facility] ([facility]) Glucose [Mass/volume] in Serum or Plasma 157 [facility] ([facility]) ID Date Data Source [id number] 05/13/2020 10:25:00 AM EDT [facility] ([facility]) Name Value Range Interpretation Code Description Data Haley rce(s) Supporting Document(s) Coronavirus 2019 Nasopharygeal Laboratory test result [facility] ([facility]) This test was developed and its performa nce characteristics determined by [facility]. This test has not been FDA cleared [...] in this assay. Performed at: - [facility] [address] [id number] Cellophaner: Adeline Potter MD, Phone: [phone] Not Detected ID Date Data Source [id number] 05/13/2020 10:25:00 AM EDT [facility] Name Value Range Interpretation Code Description Data Haley rce(s) Supporting Document(s) SARS coronavirus 2 RNA [facility] This lab was ordered by [facility] and reported by [facility]. Procedure Social History Code Duration Value Status Description Data Source(s ) Smoking 05/27/2021 12:00:00 AM EDT Former Smoker completed Former Smoker eCW1 ([facility]) Smoking 04/29/2021 12:00:00 AM EDT Former Smoker completed Former Smoker eCW1 ([facility]) Smoking 04/29/2021 12:00:00 AM EDT Former Smoker completed Former Smoker eCW1 ([facility]) Smoking 04/29/2021 12:00:00 AM EDT Former Smoker completed Former Smoker eCW1 ([facility]) Smoking 04/29/2021 12:00:00 AM EDT Former Smoker completed Former Smoker eCW1 ([facility]) Smoking 04/29/2021 12:00:00 AM EDT Former Smoker completed Former Smoker eCW1 ([facility]) 04/06/2021 12:00:00 AM EDT Moderate cigarette sm oker (10-19 cigs/day) completed Moderate cigarette smoker (10-19 cigs/day) [facility] Smoking 04/06/2021 12:00:00 AM EDT Heavy tobacco smoker comple yeimi Heavy tobacco smoker [facility] ([facility]) Smoking 12/30/2020 12:00:00 AM EDT Former smoker completed Former smoker [facility] ([facility]) Smoking 12/23/2020 12:00:00 AM EDT Former Smoker completed Former Smoker eCW1 ([facility]) Smoking 12/23/2020 12:00:00 AM EDT Former Smoker completed Former Smoker eCW1 ([facility]) Smoking 12/23/2020 12:00:00 AM EDT Former Smoker completed Former Smoker eCW1 ([facility]) Smoking 10/22/2020 12:00:00 AM EST Former smoker completed Former smoker [facility] ([facility]) Smoking 10/07/2020 12:00:00 AM EST Former smoker completed Former smoker [facility] ([facility]) Smoking 08/31/2020 12:00:00 AM EST Former smoker completed Former smoker [facility] ([facility]) Smoking 08/20/2020 12:00:00 AM EST Former smoker completed Former smoker [facility] ([facility]) Smoking 07/15/2020 12:00:00 AM EDT Former smoker completed Former smoker [facility] ([facility]) Smoking 06/24/2020 12:00:00 AM EDT Former smoker completed Former smoker [facility] ([facility]) Smoking 06/11/2020 12:00:00 AM EDT Former smoker completed Former smoker [facility] ([facility]) Smoking 05/20/2020 12:00:00 AM EDT Former smoker completed Former smoker [facility] ([facility]) Vital Signs ID Date Data Source UNK Name Value Range Interpretation Code Description Data Source(s) Systolic blood pressure 130 mm[Hg] 130 mm[Hg] e CW1 ([facility]) Body weight 201 [lb_av] 201 [lb_av] eCW1 ([facility]) Body height 66 [in_i] 66 [in_i] eCW1 ([facility]) Body mass index (BMI) [Ratio] 32.44 kg/m2 32.44 kg/m2 W1 ([facility]) Heart rate 82 /min 82 /min eCW1 ([facility]) Respiratory rate 20 /min 20 /min W1 ([facility]) Body temperature 97 [degF] 97 [degF] eCW1 ([facility]) Diastolic blood pressure 80 mm[Hg] 80 mm[Hg] eCW1 ([facility]) Body weight 209.8 [lb_av] 209.8 [lb_av] eCW1 ([facility]) Body weight 95.16 kg 95.16 kg eCW1 ([facility]) Body height 66 [in_i] 66 [in_i] eCW1 ([facility]) Body mass index (BMI) [Ratio] 33.86 kg/m2 33.86 kg/m2 eCW1 ([facility]) Heart rate 104 /min 104 /min eCW1 ([facility]) Respiratory rate 20 /min 20 /min eCW1 ([facility]) Body temperature 98.1 [degF] 98.1 [degF] eCW1 ( [facility]) Systolic blood pressure 132 mm[Hg] 132 mm[Hg] e CW1 ([facility]) Diastolic blood pressure 84 mm[Hg] 84 mm[Hg] eCW1 ([facility]) Body weight 210 [lb_av] 210 [lb_av] eCW1 ([facility]) Body height 66 [in_i] 66 [in_i] eCW1 ([facility]) Body mass index (BMI) [Ratio] 33.89 kg/m2 33.89 kg/m2 eCW1 ([facility]) Heart rate 84 /min 84 /min eCW1 ([facility]) Respiratory rate 20 /min 20 /min eCW1 ([facility]) Body temperature 97.1 [degF] 97.1 [degF] eCW1 ( [facility]) Systolic blood pressure 134 mm[Hg] 134 mm[Hg] e CW1 ([facility]) Diastolic blood pressure 80 mm[Hg] 80 mm[Hg] eCW1 ([facility]) Body height 168.91 cm 168.91 cm [facility] Body weight 96.343 kg 96.343 kg [facility] ([facility]) Systolic blood pressure 140 mm[Hg] 140 mm[Hg] N extGen ([facility]) Diastolic blood pressure 82 mm[Hg] 82 mm[Hg] [facility] ([facility]) Body mass index (BMI) [Ratio] 33.77 kg/m2 Overweight 33.77 kg/m2 [facility] ([facility]) Body weight 204 [lb_av] 204 [lb_av] eCW1 ([facility]) Body height 66 [in_i] 66 [in_i] eCW1 ([facility]) Body mass index (BMI) [Ratio] 32.92 kg/m2 32.92 kg/m2 eCW1 ([facility]) Heart rate 82 /min 82 /min eCW1 ([facility]) Respiratory rate 20 /min 20 /min eCW1 ([facility]) Body temperature 98 [degF] 98 [degF] eCW1 ([facility]) Systolic blood pressure 130 mm[Hg] 130 mm[Hg] e CW1 ([facility]) Diastolic blood pressure 80 mm[Hg] 80 mm[Hg] eCW1 ([facility]) Body weight 193.25 [lb_av] 193.25 [lb_av] MEDEN T ([facility] ) Body mass index (BMI) [Ratio] 31.7 kg/m2 31.7 k g/m2 [facility] ([facility] ) Oxygen saturation in Arterial blood by Pulse oximetry 100 % 100 % [facility] ([facility] ) Systolic blood pressure 114 mm[Hg] 114 mm[Hg] M EDENT ([facility] ) Diastolic blood pressure 78 mm[Hg] 78 mm[Hg] [facility] ([facility] ) Heart rate 58 /min 58 /min [facility] ([facility]) Body temperature 96.4 [degF] 96.4 [degF] [facility] ([facility] Body height 65.5 [in_i] 65.5 [in_i] [facility] ([facility]) 5'5.50" Body height 0.00 in Normal (applies to non-numeric resu lts) 0.00 in [facility] ([facility]) Body weight Measured 0.00 lbs Normal (applies to n on-numeric results) 0.00 lbs [facility] ([facility]) Body mass index (BMI) [Ratio] 0.00 kg/m2 No rmal (applies to non-numeric results) 0.00 kg/m2 [facility] ([facility]) Systolic blood pressure 0 mm[Hg] Normal (applies t o non-numeric results) 0 mm[Hg] [facility] ([facility]) Diastolic blood pressure 0 mm[Hg] Normal (applies to non-numeric results) 0 mm[Hg] [facility] ([facility]) Body height 0.00 in Normal (applies to non-numeric resu lts) 0.00 in [facility] ([facility]) Body weight Measured 0.00 lbs Normal (applies to n on-numeric results) 0.00 lbs [facility] ([facility]) Body mass index (BMI) [Ratio] 0.00 kg/m2 No rmal (applies to non-numeric results) 0.00 kg/m2 [facility] ([facility]) Systolic blood pressure 142 mm[Hg] Normal (applies t o non-numeric results) 142 mm[Hg] [facility] ([facility]) Diastolic blood pressure 67 mm[Hg] Normal (applies to non-numeric results) 67 mm[Hg] [facility] ([facility]) Body weight Measured 0.00 lbs Normal (applies to n on-numeric results) 0.00 lbs [facility] ([facility]) Body height 0.00 in Normal (applies to non-numeric resu lts) 0.00 in [facility] ([facility]) Systolic blood pressure 0 mm[Hg] Normal (applies t o non-numeric results) 0 mm[Hg] [facility] ([facility]) Diastolic blood pressure 0 mm[Hg] Normal (applies to non-numeric results) 0 mm[Hg] [facility] ([facility]) Body mass index (BMI) [Ratio] 0.00 kg/m2 No rmal (applies to non-numeric results) 0.00 kg/m2 [facility] ([facility]) Systolic blood pressure 134 mm[Hg] 134 mm[Hg] M DEVIN [facility]) Diastolic blood pressure 80 mm[Hg] 80 mm[Hg] [facility] ([facility]) Heart rate 93 /min 93 /min [facility] ([facility]) Body temperature 97.7 [degF] 97.7 [degF] [facility] ([facility] ) Body height 65.5 [in_i] 65.5 [in_i] [facility] ([facility] 5'5.50" Body weight 195.25 [lb_av] 195.25 [lb_av] MEDEN T ([facility]) Body mass index (BMI) [Ratio] 32.0 kg/m2 32.0 k g/m2 [facility] ([facility]) Oxygen saturation in Arterial blood by Pulse oximetry 98 % 98 % [facility] ([facility]) Patient Treatment Plan of Care Planned Activity Planned Date Details Description Data Source (s) 60 ACTUAT Fluticasone propionate 0.1 MG/ACTUAT Dry Pow barbara Inhaler [Flovent] 05/27/2021 12:00:00 AM EDT eCW1 ([facility]) Azelastine HCl 0.1 % 05/27/2021 12:00:00 AM EDT eCW1 ([facility]) Physical Therapy evaluate and treat 05/27/2021 12:00:00 AM EDT eCW1 ([facility]) Rosuvastatin calcium 20 MG Oral Tablet 05/04/2021 12:00:00 AM EDT eCW1 ([facility]) Rosuvastatin calcium 20 MG Oral Tablet 05/04/2021 12:00:00 AM EDT eCW1 ([facility]) Rosuvastatin calcium 20 MG Oral Tablet 05/04/2021 12:00:00 AM EDT eCW1 ([facility]) levocetirizine dihydrochloride 5 MG Oral Tablet 12/23/2020 12:00:00 AM EDT eCW1 ([facility]) Prednisone 10 MG Oral Tablet 12/23/2020 12:00:00 AM EDT eCW1 ([facility]) levocetirizine dihydrochloride 5 MG Oral Tablet 12/23/2020 12:00:00 AM EDT eCW1 ([facility]) Prednisone 10 MG Oral Tablet 12/23/2020 12:00:00 AM EDT eCW1 ([facility]) levocetirizine dihydrochloride 5 MG Oral Tablet 12/23/2020 12:00:00 AM EDT eCW1 ([facility]) Prednisone 10 MG Oral Tablet 12/23/2020 12:00:00 AM EDT eCW1 ([facility])
[2021-07-03] MEDS ORDERED: AUGMENTIN 875 MG TAB PO ONE (06:40)
[2021-07-03] MEDS ORDERED: AUGM875T28 PO (06:41)
[2021-07-03] MEDS ORDERED: CIPR7.5D5 AS (06:41)
[2021-07-03 07:21] VITALS: BP 127/72
== END 2021-07-03 07:21 | disposition home or self-care (01) ==
LOC: M ED 22:02
DX: H60.92 Unspecified otitis externa, left ear (principal); E11.9 Type 2 diabetes mellitus without complications; K21.9 Gastro-esophageal reflux disease without esophagitis; E78.5 Hyperlipidemia, unspecified; J45.909 Unspecified asthma, uncomplicated; Z79.4 Long term (current) use of insulin; Z79.899 Other long term (current) drug therapy; Z91.040 Latex allergy status; Z88.1 Allergy status to other antibiotic agents; Z88.8 Allergy status to other drugs, medicaments and biological substances; Z91.018 Allergy to other foods
CPT/HCPCS: 70480; 80048; 85025; 86140; 96374; 99284; J1885

== ENCOUNTER → 2021-07-28 | Outpatient (REF) | payer OTHER, MEDICAID ==
[~2021-07-28] MED LIST changes: +AUGM875T28 PO; +CIPR7.5D5 AS
== END ==
LOC: M SFHCWAGY 18:39
PROVIDERS: ATTEND Nurse Practitioner Women's Health
DX: Z12.4 Encounter for screening for malignant neoplasm of cervix (principal)

== ENCOUNTER 2021-08-01 14:15 | Outpatient (RCR) | payer OTHER ==
[~2021-08-01 14:15] MED LIST changes: -LISI-898 PO; +LISI5TAB11 PO; -MONT10TA10 PO; +MONT10TA97 PO; -OMEP-221 PO; +OMEP40CA5 PO
[2021-09-30] MEDS ORDERED: FERR324T21 PO (04:01)
[2021-09-30] MEDS ORDERED: PROA1AER2 INH (04:01)
[2021-09-30] MEDS ORDERED: CRES20TA2 PO (04:01)
[2021-09-30] MEDS ORDERED: LISI10TA22 PO (04:01)
[2021-09-30] MEDS ORDERED: PROM25TA12 PO (04:01)
[2021-09-30] MEDS ORDERED: FLOV100A INH (04:01)
[2021-09-30] MEDS ORDERED: AZEL1SPR3 (04:01)
== END 2021-08-16 ==
LOC: M PT 14:15
PROVIDERS: ATTEND Nurse Practitioner Family
DX: M54.42 Lumbago with sciatica, left side (principal)

== ENCOUNTER → 2021-08-29 | Outpatient (CLI) | payer OTHER ==
[~2021-08-29] MED LIST changes: +AZEL1SPR3; +CRES20TA2 PO; +FERR324T21 PO; +FLOV100A INH; +LISI10TA22 PO; +PROA1AER2 INH; +PROM25TA12 PO
[2021-08-29 18:39] LABS: HEMOGLOBIN 10.6 g/dl (12.0-15.5); MEAN CORPUSCULAR HEMOGLOBIN 24.9 pg (27.0-33.0); MEAN CORPUSCULAR HGB CONC 32.1 g/dl (32.0-36.5); MEAN CORPUSCULAR VOLUME 77.6 fl (80.0-96.0); PLATELET COUNT, AUTOMATED 339 10^3/uL (150-450); RED BLOOD COUNT 4.25 10^6/uL (4.00-5.40); WHITE BLOOD COUNT 9.2 10^3/uL (4.0-10.0)
== END ==
LOC: M PLALAB 14:15
PROVIDERS: ATTEND Obstetrics & Gynecology
DX: N93.9 Abnormal uterine and vaginal bleeding, unspecified (principal)

== ENCOUNTER → 2021-08-29 | Outpatient (CLI) | payer OTHER ==
[2021-08-29 22:24] LABS: ALBUMIN 3.2 GM/DL (3.2-5.2); BILIRUBIN,TOTAL 0.7 MG/DL (0.2-1.0); CALCIUM LEVEL 9.4 MG/DL (8.5-10.1); CHOLESTEROL RISK RATIO 5.282 (<5); CREATININE FOR GFR 1.1 MG/DL (0.55-1.30); GLOMERULAR FILTRATION RATE 57.4 (>58); POTASSIUM SERUM 4.7 MEQ/L (3.5-5.1); TOTAL PROTEIN 6.9 GM/DL (6.4-8.2)
== END ==
LOC: M PLALAB 14:13
PROVIDERS: ATTEND Nurse Practitioner Family
DX: E78.2 Mixed hyperlipidemia (principal); Z79.899 Other long term (current) drug therapy

== ENCOUNTER → 2021-09-21 | Outpatient (CLI) | payer OTHER, MEDICAID ==
[~2021-09-21] MED LIST changes: -AZEL1SPR3; -CRES20TA2 PO; -FERR324T21 PO; -FLOV100A INH; +LISI-898 PO; -LISI10TA22 PO; -LISI5TAB11 PO; +MONT10TA10 PO; -MONT10TA97 PO; +OMEP-221 PO; -OMEP40CA5 PO; -PROA1AER2 INH; -PROM25TA12 PO
== END ==
LOC: M WHC 15:32
PROVIDERS: ATTEND Nurse Practitioner Family
DX: Z12.31 Encounter for screening mammogram for malignant neoplasm of breast (principal)

== ENCOUNTER → 2021-09-21 | Outpatient (REF) | payer OTHER ==
[2021-09-21 19:15] LABS: CREATININE, URINE 80.2 MG/DL; MAU/CREAT RATIO 658.3 MCG/MG (0.0-30.0)
== END ==
LOC: M LAB REF 16:56
PROVIDERS: ATTEND Nurse Practitioner Family
DX: E11.65 Type 2 diabetes mellitus with hyperglycemia (principal)

== ENCOUNTER → 2021-09-21 | Outpatient (CLI) | payer OTHER, MEDICAID ==
--- NOTE | 2021-09-22 08:52 | REP ---
INDICATION: AUB COMPARISON: None. TECHNIQUE: Transabdominal pelvic ultrasound followed by transvaginal examination for better evaluation of the endometrium and adnexa with color Doppler evaluation of the ovaries. FINDINGS: Bladder is unremarkable and measures 8.5 x 6.3 x 8.2 cm. Anteverted uterus measures 9.5 x 4.2 x 4.7 cm. The endometrial complex measures 8 mm excluding a 1.3 x 0.7 x 0.7 cm endometrial polyp. Noted prior right oophorectomy. Left ovary measures 4.5 x 1.6 x 2.9 cm; R I = 0.50. No pelvic fluid or adnexal mass lesion IMPRESSION: 13 x 7 x 7 mm endometrial polyp. <Electronically signed by Jamey Whaley > 09/22/21 [id number]
== END ==
LOC: M WHC 15:36
PROVIDERS: ATTEND Obstetrics & Gynecology
DX: N93.9 Abnormal uterine and vaginal bleeding, unspecified (principal)

== ENCOUNTER → 2021-11-17 | Outpatient (CLI) | payer OTHER ==
[~2021-11-17] MED LIST changes: +AZEL1SPR3; +CRES20TA2 PO; +FERR324T21 PO; +FLOV100A INH; -LISI-898 PO; +LISI10TA22 PO; +LISI5TAB11 PO; -MONT10TA10 PO; +MONT10TA97 PO; -OMEP-221 PO; +OMEP40CA5 PO; +PROA1AER2 INH; +PROM25TA12 PO
== END ==
LOC: M LABSMTC 09:05
DX: Z01.818 Encounter for other preprocedural examination (principal); Z11.52 Encounter for screening for COVID-19

== ENCOUNTER → 2021-11-30 | Outpatient (CLI) | payer OTHER | LOC: M SOG 10:26 | PROVIDERS: ATTEND Orthopaedic Surgery | DX: M54.50 Low back pain, unspecified (principal) ==

== ENCOUNTER → 2021-12-19 | Outpatient (REF) | payer OTHER | LOC: M SFHCWAGY 15:14 | PROVIDERS: ATTEND Obstetrics & Gynecology | DX: N93.9 Abnormal uterine and vaginal bleeding, unspecified (principal) ==

== ENCOUNTER → 2021-12-27 | Outpatient (CLI) | payer OTHER ==
[~2021-12-27] MED LIST changes: +CYMB1CAP5 PO; +SEMA1PEN2 SQ
[2021-12-27 18:40] LABS: ALBUMIN 3.5 GM/DL (3.2-5.2); ALT/SGPT 26 U/L (12-78); BILIRUBIN,TOTAL 0.8 MG/DL (0.2-1.0); BLOOD UREA NITROGEN 14 MG/DL (7-18); CALCIUM LEVEL 9.4 MG/DL (8.5-10.1); CARBON DIOXIDE LEVEL 29 MEQ/L (21-32); CHLORIDE LEVEL 103 MEQ/L (98-107); CREATININE FOR GFR 0.88 MG/DL (0.55-1.30); FERRITIN 67 NG/ML (8-252); FREE T4 1.15 NG/DL (0.76-1.46); GLOMERULAR FILTRATION RATE > 60.0 (>58); GLUCOSE, FASTING 106 MG/DL (70-100); NT-PRO BNP 111 PG/ML (<125); SODIUM LEVEL 139 MEQ/L (136-145); TOTAL PROTEIN 7.3 GM/DL (6.4-8.2)
== END ==
LOC: M PLALAB 14:56
PROVIDERS: ATTEND Internal Medicine Hematology
DX: Z01.810 Encounter for preprocedural cardiovascular examination (principal)

== ENCOUNTER → 2022-01-02 | Outpatient (CLI) | payer OTHER | LOC: M LABSMTC 10:44 | PROVIDERS: ATTEND Anesthesiology | DX: Z01.812 Encounter for preprocedural laboratory examination (principal); Z20.822 Contact with and (suspected) exposure to COVID-19 ==

== ENCOUNTER → 2022-01-05 | Outpatient (CLI) | payer OTHER ==
[~2022-01-05] MED LIST changes: +COLA100C5 PO; +PERCOCET PO
== END ==
LOC: M RAD 14:50
PROVIDERS: ATTEND Orthopaedic Surgery
DX: M47.816 Spondylosis without myelopathy or radiculopathy, lumbar region (principal)

== ENCOUNTER → 2022-01-05 | Outpatient (CLI) | payer OTHER | LOC: M EKG 14:56 | PROVIDERS: ATTEND Anesthesiology | DX: Z01.818 Encounter for other preprocedural examination (principal) ==

== ENCOUNTER 2022-01-06 06:00 | Day surgery (SDC) | payer OTHER ==
[~2022-01-06] VITALS: Ht 165.1 cm; Wt 89.7 kg
[2022-01-06] VITALS (7 sets, daily range): BP systolic 122–133; BP diastolic 67–83
[~2022-01-06 06:00] MED LIST changes: -COLA100C5 PO; +LR 1,000 ML IV ONE; -PERCOCET PO; +ceFAZolin SOD 2 GM in IV 1 EA IV ONE
[2022-01-06 06:36] LABS: HEMATOCRIT 33.1 % (36.0-47.0); HEMOGLOBIN 10.6 g/dl (12.0-15.5); MEAN CORPUSCULAR HEMOGLOBIN 24.6 pg (27.0-33.0); MEAN CORPUSCULAR VOLUME 76.8 fl (80.0-96.0); PLATELET COUNT, AUTOMATED 362 10^3/uL (150-450); RED BLOOD COUNT 4.31 10^6/uL (4.00-5.40)
[2022-01-06 07:06] LABS: HCG, SERUM QUALITATIVE NEGATIVE (NEGATIVE)
[2022-01-06] MEDS ORDERED: METHYLENE BLUE 0.5% (5MG/ML) 10 ML AMP (PROVAYBLUE) As Ordered ONE (07:11)
[2022-01-06] MEDS ORDERED: BUPIVACAINE HCL 0.25% 30ML VIAL As Ordered ONE (07:11)
[2022-01-06] MEDS ORDERED: ROCURONIUM BROMIDE 50 MG/5 ML VIAL As Ordered ONE ×2 (07:18→09:30)
[2022-01-06] MEDS ORDERED: dexameTHASONE 4 MG/ML 1ML VIAL (J1100 PER 1MG) As Ordered ONE (07:18)
[2022-01-06] MEDS ORDERED: KETOROLAC 60MG 2ML VIAL As Ordered ONE (07:18)
[2022-01-06] MEDS ORDERED: ONDANSETRON 4MG/2ML VIAL As Ordered ONE (07:18)
[2022-01-06] MEDS ORDERED: SUGAMMADEX SODIUM 500 MG/5 ML VIAL (BRIDION) As Ordered ONE (07:18)
[2022-01-06] MEDS ORDERED: ACETAMINOPHEN 1000MG 100ML IV BTL (OFIRMEV) (J0131 PER 10MG) As Ordered ONE (07:18)
[2022-01-06] MEDS ORDERED: LIDOCAINE 2% 100MG/5ML SDV (FOR ANES.) As Ordered ONE (07:18)
[2022-01-06] MEDS ORDERED: propofoL 200 MG/20 ML VIAL As Ordered ONE (07:18)
[2022-01-06] MEDS ORDERED: fentaNYL 100 MCG/2 ML INJECTION As Ordered ONE (07:19)
[2022-01-06] MEDS ORDERED: MIDAZOLAM INJ 2MG/2ML VIAL (J2250 PER 1MG) As Ordered ONE (07:19)
[2022-01-06] MEDS ORDERED: HYDROmorphone HCL 2MG/ML 1ML VIAL As Ordered ONE (07:26)
[2022-01-06] MEDS ORDERED: ePHEDrine SULFATE 25 MG/5 ML(5MG/ML) SYRINGE As Ordered ONE (09:30)
[2022-01-06] MEDS ORDERED: ALBUTEROL 90 MCG/ACT 8GM HFA INHALER INH PRN (09:55)
[2022-01-06] MEDS ORDERED: ONDANSETRON 4MG/2ML VIAL IV PRN ×2 (10:05→10:10)
[2022-01-06] MEDS ORDERED: GLUCOSE 4GM CHEW TABLET PO PRN (10:05)
[2022-01-06] MEDS ORDERED: PERCOCET 5MG/325MG TAB PO PRN ×2 (10:05)
[2022-01-06] MEDS ORDERED: GLUCAGON INJ 1MG VIAL SC PRN (10:05)
[2022-01-06] MEDS ORDERED: MORPHINE 4 MG/ML 1ML VIAL/SYRINGE IV PRN (10:05)
[2022-01-06] MEDS ORDERED: DEXTROSE 50% 50 ML SYRINGE IV PRN (10:05)
[2022-01-06] MEDS ORDERED: oxyCODONE 5MG TAB PO PRN (10:10)
[2022-01-06] MEDS ORDERED: MEPERIDINE INJ 25 MG/ML VIAL (J2175) IV PRN (10:10)
[2022-01-06] MEDS ORDERED: LR 1,000 ML IV SCH (10:10)
[2022-01-06] MEDS ORDERED: fentaNYL 100 MCG/2 ML INJECTION IV PRN (10:10)
[2022-01-06] MEDS ORDERED: PHENYLephrine 500MCG 5ML (100MCG/ML) SYRINGE As Ordered ONE (11:33)
[2022-01-06] MEDS: KETOROLAC 30 MG/ML 1ML VIAL IV SCH ×2 (14:00→20:46)
[2022-01-06] MEDS: HumaLOG INSULIN (NovoLOG) PER UNIT SC SCH ×2 (14:02→18:07)
[2022-01-06] MEDS: LR 1,000 ML IV SCH ×3 (14:02→21:17)
[2022-01-06] MEDS ORDERED: PERCOCET PO (16:15)
[2022-01-06] MEDS ORDERED: COLA100C5 PO (16:15)
[2022-01-06] MEDS ORDERED: FERROUS GLUCONATE 324 MG TAB PO SCH (21:00)
[2022-01-06] MEDS ORDERED: OMEPRAZOLE 20MG CAP PO SCH (21:00)
[2022-01-06] MEDS ORDERED: LEVEMIR (INSULIN DETEMIR) 1 UNITS/0.01ML SC SCH (21:00)
[2022-01-06] MEDS ORDERED: CETIRIZINE (ZyrTEC) 10 MG TAB PO SCH (21:00)
[2022-01-06] MEDS ORDERED: MONTELUKAST 10 MG TAB PO SCH (21:00)
[2022-01-06] MEDS ORDERED: ROSUVASTATIN 10 MG TAB (CRESTOR) PO SCH (21:00)
[2022-01-06] MEDS: DOCUSATE SODIUM 100MG CAPSULE PO SCH (21:15)
[2022-01-06] MEDS: FLUTICASONE HFA 110 MCG 12 GM INHALER (FLOVENT) INH SCH (23:27)
[2022-01-07 02:00] VITALS: BP 132/81
[2022-01-07] MEDS: KETOROLAC 30 MG/ML 1ML VIAL IV SCH (02:41)
[2022-01-07] MEDS: LR 1,000 ML IV SCH (05:33)
[2022-01-07 05:47] VITALS: BP 102/63
[2022-01-07] MEDS: FLUTICASONE HFA 110 MCG 12 GM INHALER (FLOVENT) INH SCH (07:52)
[2022-01-07] MEDS: HumaLOG INSULIN (NovoLOG) PER UNIT SC SCH (08:47)
[2022-01-07] MEDS: DOCUSATE SODIUM 100MG CAPSULE PO SCH (08:47)
[2022-01-07] MEDS ORDERED: IBUPROFEN 800 MG TAB PO SCH (10:00)
== END 2022-01-07 10:46 | disposition home or self-care (01) ==
LOC: M SDC 06:00 → M MSPAV 11:22 → M SDC 01-07 10:46
PROVIDERS: ATTEND Obstetrics & Gynecology
DX: N84.0 Polyp of corpus uteri (principal); N83.202 Unspecified ovarian cyst, left side; N93.9 Abnormal uterine and vaginal bleeding, unspecified; R10.2 Pelvic and perineal pain; I10 Essential (primary) hypertension; K21.9 Gastro-esophageal reflux disease without esophagitis; E78.5 Hyperlipidemia, unspecified; K90.0 Celiac disease; H40.9 Unspecified glaucoma; E11.40 Type 2 diabetes mellitus with diabetic neuropathy, unspecified; M19.90 Unspecified osteoarthritis, unspecified site; F41.9 Anxiety disorder, unspecified; F32.A Depression, unspecified; J45.909 Unspecified asthma, uncomplicated; Z86.16 Personal history of COVID-19; F17.290 Nicotine dependence, other tobacco product, uncomplicated; Z88.6 Allergy status to analgesic agent; Z88.1 Allergy status to other antibiotic agents; Z91.018 Allergy to other foods; Z91.040 Latex allergy status; Z79.899 Other long term (current) drug therapy; Z79.51 Long term (current) use of inhaled steroids; Z79.4 Long term (current) use of insulin; Z79.84 Long term (current) use of oral hypoglycemic drugs; Z90.721 Acquired absence of ovaries, unilateral
CPT/HCPCS: 36415; 58571; 84703; 85027; 86850; 86900; 86901; 88307; 96374; 96376; J0131; J0690; J1100; J1170; J1815; J1885; J2250; J2370; J2405; J3010; Q9968; S2900

== ENCOUNTER → 2022-08-09 | Outpatient (CLI) | payer OTHER ==
[~2022-08-09] MED LIST changes: -AFRI0.058; +COLA100C5 PO; -LR 1,000 ML IV ONE; +OXYM15SP2; +PERCOCET PO; -ceFAZolin SOD 2 GM in IV 1 EA IV ONE
[2022-08-09 13:58] LABS: BASO # 0.1 10^3/uL (0.0-0.2); EOS # 0.1 10^3/uL (0.0-0.5); EOS % 1.7 % (0.0-3.0); HEMATOCRIT 34.7 % (36.0-47.0); HEMOGLOBIN 10.8 g/dl (12.0-15.5); LYMPH # 2.1 10^3/uL (1.5-5.0); LYMPH % 41.1 % (24.0-44.0); MEAN CORPUSCULAR HEMOGLOBIN 25.2 pg (27.0-33.0); MEAN CORPUSCULAR HGB CONC 31.1 g/dl (32.0-36.5); MEAN CORPUSCULAR VOLUME 80.9 fl (80.0-96.0); MONO # 0.4 10^3/uL (0.0-0.8); MONO % 7.7 % (2.0-8.0); NEUTROPHILS # 2.5 10^3/uL (1.5-8.5); NEUTROPHILS % 48.3 % (36.0-66.0); PLATELET COUNT, AUTOMATED 377 10^3/uL (150-450); RED BLOOD COUNT 4.29 10^6/uL (4.00-5.40); WHITE BLOOD COUNT 5.2 10^3/uL (4.0-10.0)
[2022-08-09 14:24] LABS: ALBUMIN 3.6 G/DL (3.2-5.2); ALT/SGPT 29 U/L (7.0-40); BILIRUBIN,TOTAL 0.6 MG/DL (0.3-1.2); BLOOD UREA NITROGEN 17 MG/DL (9-23); CALCIUM LEVEL 9.5 MG/DL (8.5-10.1); CARBON DIOXIDE LEVEL 29 MMOL/L (20-31); CHLORIDE LEVEL 103 MMOL/L (98-107); CHOLESTEROL LEVEL 144 MG/DL (<200); CREATININE FOR GFR 0.82 MG/DL (0.55-1.30); FERRITIN 46.6 NG/ML (7.3-270.7); GLOMERULAR FILTRATION RATE > 60.0 (>58); GLUCOSE, FASTING 128 MG/DL (60-100); HDL CHOLESTEROL 49.5 MG/DL (>40); IRON (FE) 63 UG/DL (50-170); LDL CHOLESTEROL 64.9 MG/DL (<100); MAGNESIUM LEVEL 1.8 MG/DL (1.8-2.4); NON-HDL-C 95 MG/DL; SODIUM LEVEL 139 MMOL/L (136-145); TOTAL 25(OH) VITAMIN D 25.2 NG/ML (20.0-100.0); TRIGLYCERIDES LEVEL 148 MG/DL (<150); VITAMIN B12 LEVEL 674 PG/ML (211-911)
[2022-08-09 18:31] LABS: HEMOGLOBIN A1c 7.9 % (4.0-6.0)
== END ==
LOC: M PLALAB 08:54
PROVIDERS: ATTEND Nurse Practitioner Family
DX: E78.2 Mixed hyperlipidemia (principal); I10 Essential (primary) hypertension; E11.9 Type 2 diabetes mellitus without complications; E55.9 Vitamin D deficiency, unspecified; R53.83 Other fatigue

== ENCOUNTER → 2022-11-03 | Outpatient (CLI) | payer OTHER ==
[~2022-11-03] MED LIST changes: +DEXA4TA PO; +KEPP1TAB PO
[2022-11-03 17:06] LABS: BASO # 0.1 10^3/uL (0.0-0.2); BASO % 0.8 % (0.0-1.0); EOS # 0.1 10^3/uL (0.0-0.5); EOS % 1.6 % (0.0-3.0); HEMATOCRIT 33.4 % (36.0-47.0); HEMOGLOBIN 10.7 g/dl (12.0-15.5); LYMPH # 1.9 10^3/uL (1.5-5.0); LYMPH % 30.4 % (24.0-44.0); MEAN CORPUSCULAR HEMOGLOBIN 25.1 pg (27.0-33.0); MEAN CORPUSCULAR VOLUME 78.4 fl (80.0-96.0); MONO # 0.5 10^3/uL (0.0-0.8); MONO % 7.1 % (2.0-8.0); NEUTROPHILS # 3.7 10^3/uL (1.5-8.5); NEUTROPHILS % 59.3 % (36.0-66.0); PLATELET COUNT, AUTOMATED 328 10^3/uL (150-450); RED BLOOD COUNT 4.26 10^6/uL (4.00-5.40); WHITE BLOOD COUNT 6.3 10^3/uL (4.0-10.0)
[2022-11-03 17:35] LABS: ALBUMIN 3.3 G/DL (3.2-5.2); ALKALINE PHOSPHATASE 101 U/L (46-116); ALT/SGPT 33 U/L (7.0-40); AST/SGOT 13 U/L (<34); BILIRUBIN,TOTAL 0.8 MG/DL (0.3-1.2); BLOOD UREA NITROGEN 30 MG/DL (9-23); CALCIUM LEVEL 9.3 MG/DL (8.5-10.1); CARBON DIOXIDE LEVEL 27 MMOL/L (20-31); CHLORIDE LEVEL 102 MMOL/L (98-107); CREATININE FOR GFR 0.95 MG/DL (0.55-1.30); GLOMERULAR FILTRATION RATE > 60.0 (>58); GLUCOSE, FASTING 345 MG/DL (60-100); POTASSIUM SERUM 4.8 MMOL/L (3.5-5.1); SODIUM LEVEL 136 MMOL/L (136-145); TOTAL PROTEIN 6.7 G/DL (5.7-8.2)
[2022-11-03 17:39] LABS: FREE T4 1.23 NG/DL (0.89-1.76); THYROID STIMULATING HORMONE 1.472 uIU/ML (0.55-4.78)
[2022-11-03 17:41] LABS: FERRITIN 58.4 NG/ML (7.3-270.7)
[2022-11-03 17:42] LABS: TOTAL 25(OH) VITAMIN D 19.7 NG/ML (20.0-100.0)
[2022-11-03 17:43] LABS: VITAMIN B12 LEVEL 702 PG/ML (211-911)
== END ==
LOC: M PLALAB 15:51
PROVIDERS: ATTEND Physician Assistant
DX: R42 Dizziness and giddiness (principal)

== ENCOUNTER 2022-11-06 11:22 | Emergency (ER) | payer OTHER ==
[~2022-11-06] VITALS: Ht 165.1 cm; Wt 91.8 kg
[~2022-11-06 11:22] MED LIST changes: -DEXA4TA PO; -KEPP1TAB PO
[2022-11-06] MEDS ORDERED: MECLIZINE 25 MG TABLET PO ONE (14:50)
[2022-11-06 15:08] LABS: BASO # 0.1 10^3/uL (0.0-0.2); BASO % 0.8 % (0.0-1.0); EOS # 0.1 10^3/uL (0.0-0.5); EOS % 1.6 % (0.0-3.0); HEMATOCRIT 34.3 % (36.0-47.0); HEMOGLOBIN 10.8 g/dl (12.0-15.5); LYMPH # 3.2 10^3/uL (1.5-5.0); LYMPH % 39.7 % (24.0-44.0); MEAN CORPUSCULAR HEMOGLOBIN 24.5 pg (27.0-33.0); MEAN CORPUSCULAR HGB CONC 31.5 g/dl (32.0-36.5); MEAN CORPUSCULAR VOLUME 77.8 fl (80.0-96.0); MONO # 0.6 10^3/uL (0.0-0.8); MONO % 7.4 % (2.0-8.0); NEUTROPHILS % 49.9 % (36.0-66.0); PLATELET COUNT, AUTOMATED 359 10^3/uL (150-450); RED BLOOD COUNT 4.41 10^6/uL (4.00-5.40)
[2022-11-06 15:23] LABS: INR 0.93; PROTHROMBIN TIME 12.7 SECONDS (12.5-14.5)
[2022-11-06 15:24] LABS: PARTIAL THROMBOPLASTIN TIME 25.3 SECONDS (24.8-34.2)
[2022-11-06 15:35] LABS: BLOOD UREA NITROGEN 25 MG/DL (9-23); CALCIUM LEVEL 9.9 MG/DL (8.5-10.1); CARBON DIOXIDE LEVEL 29 MMOL/L (20-31); CHLORIDE LEVEL 103 MMOL/L (98-107); CREATININE FOR GFR 0.93 MG/DL (0.55-1.30); GLOMERULAR FILTRATION RATE > 60.0 (>58); GLUCOSE, FASTING 169 MG/DL (60-100); SODIUM LEVEL 137 MMOL/L (136-145)
[2022-11-06] MEDS ORDERED: PROHANCE 279.3MG/ML 5ML VIAL As Ordered ONE (17:48)
[2022-11-06] MEDS ORDERED: PROHANCE 279.3MG/ML 15ML VIAL As Ordered ONE (17:48)
[2022-11-06] MEDS ORDERED: levETIRAcetam 250MG TABLET (KEPPRA) PO ONE (20:10)
[2022-11-06] MEDS ORDERED: KEPP1TAB PO (20:31)
[2022-11-06] MEDS ORDERED: DEXA4TA PO (20:31)
[2022-11-06 21:00] VITALS: BP 138/73
== END 2022-11-06 21:00 | disposition home or self-care (01) ==
LOC: M ED 11:22
DX: R42 Dizziness and giddiness (principal); R93.0 Abnormal findings on diagnostic imaging of skull and head, not elsewhere classified; E11.9 Type 2 diabetes mellitus without complications; I10 Essential (primary) hypertension; J45.909 Unspecified asthma, uncomplicated; E78.5 Hyperlipidemia, unspecified; F41.9 Anxiety disorder, unspecified; F32.9 Major depressive disorder, single episode, unspecified; K21.9 Gastro-esophageal reflux disease without esophagitis; M06.9 Rheumatoid arthritis, unspecified; F17.200 Nicotine dependence, unspecified, uncomplicated; Z79.4 Long term (current) use of insulin; Z79.899 Other long term (current) drug therapy; Z91.040 Latex allergy status; Z91.018 Allergy to other foods; Z88.8 Allergy status to other drugs, medicaments and biological substances; Z88.0 Allergy status to penicillin
CPT/HCPCS: 70450; 70544; 70551; 70552; 71045; 80048; 85025; 85610; 85730; 93005; 93041; 94760; 99284; A9576

== ENCOUNTER → 2023-02-09 | Outpatient (CLI) | payer OTHER ==
[~2023-02-09] MED LIST changes: +DEXA4TA PO; +KEPP1TAB PO; +LORA1TAB23 PO; -LORA1TAB4 PO
[2023-02-09 16:14] LABS: CHOLESTEROL RISK RATIO 3.08 (<5); HDL CHOLESTEROL 59.3 MG/DL (>40); LDL CHOLESTEROL 86.3 MG/DL (<100); NON-HDL-C 123.7 MG/DL
== END ==
LOC: M LAB 15:10
PROVIDERS: ATTEND Nurse Practitioner Family
DX: E78.2 Mixed hyperlipidemia (principal)

== ENCOUNTER → 2023-02-09 | Outpatient (CLI) | payer OTHER ==
[2023-02-09 15:43] LABS: BASO # 0.1 10^3/uL (0.0-0.2); BASO % 0.9 % (0.0-1.0); EOS # 0.1 10^3/uL (0.0-0.5); EOS % 1.9 % (0.0-3.0); HEMATOCRIT 33.2 % (36.0-47.0); LYMPH # 2.6 10^3/uL (1.5-5.0); LYMPH % 39.5 % (24.0-44.0); MEAN CORPUSCULAR HEMOGLOBIN 24.8 pg (27.0-33.0); MEAN CORPUSCULAR HGB CONC 33.1 g/dl (32.0-36.5); MEAN CORPUSCULAR VOLUME 74.8 fl (80.0-96.0); MONO # 0.5 10^3/uL (0.0-0.8); MONO % 6.9 % (2.0-8.0); NEUTROPHILS # 3.4 10^3/uL (1.5-8.5); NEUTROPHILS % 50.2 % (36.0-66.0); PLATELET COUNT, AUTOMATED 338 10^3/uL (150-450); RED BLOOD COUNT 4.44 10^6/uL (4.00-5.40); WHITE BLOOD COUNT 6.7 10^3/uL (4.0-10.0)
[2023-02-09 16:15] LABS: ALBUMIN 3.4 G/DL (3.2-5.2); ALKALINE PHOSPHATASE 109 U/L (46-116); ALT/SGPT 34 U/L (7.0-40); AST/SGOT 16 U/L (<34); BILIRUBIN,TOTAL 0.6 MG/DL (0.3-1.2); BLOOD UREA NITROGEN 21 MG/DL (9-23); CALCIUM LEVEL 9.5 MG/DL (8.5-10.1); CARBON DIOXIDE LEVEL 27 MMOL/L (20-31); CHLORIDE LEVEL 98 MMOL/L (98-107); CREATININE FOR GFR 0.78 MG/DL (0.55-1.30); GLOMERULAR FILTRATION RATE > 60.0 (>58); GLUCOSE, FASTING 175 MG/DL (60-100); POTASSIUM SERUM 4.4 MMOL/L (3.5-5.1); SODIUM LEVEL 132 MMOL/L (136-145); TOTAL PROTEIN 6.8 G/DL (5.7-8.2)
== END ==
LOC: M LAB 15:13
PROVIDERS: ATTEND Psychiatry & Neurology Neurology
DX: R51.9 Headache, unspecified (principal)

== ENCOUNTER → 2023-03-02 | Outpatient (CLI) | payer OTHER | LOC: M RAD 14:24 | PROVIDERS: ATTEND Internal Medicine Rheumatology | DX: M06.09 Rheumatoid arthritis without rheumatoid factor, multiple sites (principal) ==